=== PATIENT | male | born 1980 | race Caucasian/White ===

== ENCOUNTER 2022-05-20 21:53 | Inpatient (IN) | payer MEDICAID, SELFPAY ==
[2022-05-20 22:00] VITALS: BP 130/86; PULSE 101; RESP 20; O2SAT 96; BMI 21.9
[2022-05-20] MEDS: rocuronium 10 mg/mL INJ 5mL 50 MG (22:12)
[2022-05-20 22:13] VITALS: PULSE 80
[2022-05-20] MEDS: LORazepam 2 mg/mL INJ 1 mL (22:13)
[2022-05-20] MEDS: propofol 1,000 MG/100 ML INJ 5.72 MG IV (22:13)
--- NOTE | 2022-05-20 22:13 | CTR_ITS ---
PROCEDURE INFORMATION: Exam: CT Cervical Spine Without Contrast Exam date and time: 05/21/2022 12:08 AM Age: 42 years old Clinical indication: Other: Ams/seizures; Patient HX: Per EMS patient had multiple violent seizures on route to er. Patient intubated upon arrival. No further history. TECHNIQUE: Imaging protocol: Computed tomography of the cervical spine without contrast. Radiation optimization: All CT scans at this facility use at least one of these dose optimization techniques: automated exposure control; mA and/or kV adjustment per patient size (includes targeted exams where dose is matched to clinical indication); or iterative reconstruction. COMPARISON: CT Cervical Spine wo* [id number] 10/21/2017 2:21 AM RADIATION DOSE METRICS: Total DLP (mGy-cm): 213.07 FINDINGS: Tubes, catheters and devices: An endotracheal tube and orogastric tube are present. Bones/joints: No acute fracture. Normal alignment. Discs/Spinal canal/Neural foramina: A diffuse mild loss of disc height is seen within the cervical spine compatible with degenerative disc disease. Lungs: Subpleural emphysematous blebs are present in the lung apices. Soft tissues: Unremarkable. CT/CT cervical spin wo con* [id number] IMPRESSION: There are no acute osseous findings.
--- NOTE | 2022-05-20 22:13 | CTR_ITS ---
PROCEDURE INFORMATION: Exam: CT Head Without Contrast Exam date and time: 05/21/2022 12:05 AM Age: 42 years old Clinical indication: Condition or disease; Convulsions or seizures; Altered mental status/memory loss; Patient HX: Per EMS patient had multiple violent seizures on route to er. Patient intubated upon arrival. No further history. ; Additional info: AMS TECHNIQUE: Imaging protocol: Computed tomography of the head without contrast. Radiation optimization: All CT scans at this facility use at least one of these dose optimization techniques: automated exposure control; mA and/or kV adjustment per patient size (includes targeted exams where dose is matched to clinical indication); or iterative reconstruction. COMPARISON: CT head wo con* [id number] 10/21/2017 2:19 AM RADIATION DOSE METRICS: Total DLP (mGy-cm): 822.98 FINDINGS: Brain: Normal. No hemorrhage. Unremarkable white matter. No mass effect. Cerebral ventricles: No ventriculomegaly. Paranasal sinuses: Visualized sinuses are unremarkable. No fluid levels. Mastoid air cells: Visualized mastoid air cells are well aerated. Bones/joints: Unremarkable. No acute fracture. Soft tissues: A soft tissue calcification is seen within the left parietal scalp appearing stable compared with 10/21/2017. There is mild bruising seen in the left occipital scalp. Mild bruising is seen within the forehead on the right. CT/CT head wo con* [id number] IMPRESSION: There are no acute intracranial findings.
--- NOTE | 2022-05-20 22:13 | XRR_ITS ---
PROCEDURE INFORMATION: Exam: XR Chest Exam date and time: 05/20/2022 10:17 PM Age: 42 years old Clinical indication: Device placement; Ett placement (vent status); Patient HX: Per EMS patient had multiple violent seizures on route to er. Patient had to be intubated upon arrival. Check for et placement. ; Additional info: AMS TECHNIQUE: Imaging protocol: Radiologic exam of the chest. Views: 1 view. COMPARISON: CR Chest 1 [place] [id number] 10/21/2017 2:27 AM FINDINGS: Tubes, catheters and devices: An endotracheal tube ends at the mid clavicles. Lungs: The lungs are clear. Pleural spaces: Unremarkable. No pleural effusion. No pneumothorax. Heart/Mediastinum: Unremarkable. No cardiomegaly. Bones/joints: There are several chronic healed right inferolateral rib fractures. XR/XR chest 1V portable [id number] IMPRESSION: 1. Intubated. 2. Lungs clear.
--- NOTE | 2022-05-20 22:14 | ECG_ITS ---
[facility] Test Date: 2022-05-20 Pat Name: Tony Galo Department: Room: Gender: Male Long Term Care Pharmacist: : 1980 Requested By: Derek Martin Order Number: [id number] Carson MD: Salvatore Pepper M.D. Measurements Intervals [place] Rate: 139 P: 80 ID: [id number] QRS: 70 QRSD: 87 T: 75 QT: 274 QTc: 417 Interpretive Statements SINUS TACHYCARDIA Compared to ECG 10/21/2017 01:27:39 Sinus rhythm no longer present Electronically Signed On 05-21-2022 18:18:12 CDT by Salvatore Pepper M.D. [id number]
--- NOTE | 2022-05-20 22:15 | ED_ITS ---
Documented by User: Derek Martin MD 05/20/22 22:50 HPI - Altered Mental Status General: Chief Complaint: Seizure Stated Complaint: SEIZURE Time Seen by Provider: 05/20/22 22:04 History of Present Illness: 42-year-old with a history of seizures presents with altered mental status. Per EMS was picked up at the scene where he had seizures earlier and was retching and altered. He received ketamine and 2 mg of Ativan. Upon arrival he is retching in bed. History is very limited due to his altered mental status. Review of Systems Narrative: Unable to obtain due to altered mental status Physical Exam Narrative: - GENERAL: Writhing in the bed, uncooperative - EYES: Anicteric - HENT: Atraumatic, mucous membranes moist tongue biting present. - LUNGS: Clear to auscultation bilaterally. - CARDIOVASCULAR: Regular rate and rhythm. No murmur. No JVD. - ABDOMEN: Soft, nondistended - EXTREMITIES: No edema. - SKIN: No rashes or lesions. Warm. - NEUROLOGIC: Writhing in the bed and retching. Unresponsive to external stimuli. - PSYCHIATRIC: Unable to assess Procedures Intubation sedative: other (Propofol) Mg Given: 70 paralytic: Rocuronium Mg Given: 70 Laryngoscope: fiber optic video scope ET Tube Size: 7.5 ET Tube Uncuffed: No Tube Secured Depth (cm): 21 Tube Secured Location: teeth Tube Placement Confirmation: visualized tube passing through cords, equal breath sounds bilaterally, no breath sounds over epigastrium and confirmation by capnometry Patient Tolerated Procedure: well Course Vital Signs: Vital signs: Vital Signs Temperature 99.2 F 05/21/22 01:25 Pulse Rate 92 05/21/22 01:25 Respiratory Rate 20 H 05/21/22 01:25 Blood Pressure 110/84 05/21/22 01:25 Pulse Oximetry 98 05/21/22 01:25 MDM - Altered Mental Status Medical Decision Making Patient presents with altered mental status by EMS. He is initially resting in the stretcher and appears to be having an active seizure. Intubated using propofol and rocuronium. Following intubation oxygen saturation did drop to the 60s. Patient was aggressively suctioned with expression of a large amount of material from his trachea there is concern that he aspirated while he was having seizure. X-ray does not reveal pneumothorax or other acute abnormality. Tube placement was confirmed with laryngoscopy and breath sounds. Significantly improved saturation after suctioning. Remainder of imaging and lab work currently pending. Patient signed out to Dr. Frias. Lab Data : 05/20/22 22:20 05/20/22 23:44 Radiology Impressions Cervical Spine CT 05/20/22 22:13 IMPRESSION: There are no acute osseous findings. Chest X-Ray 05/20/22 22:13 IMPRESSION: 1. Intubated. 2. Lungs clear. Head CT 05/20/22 22:13 IMPRESSION: There are no acute intracranial findings. Laboratory Results WBC 22.5 10^3/uL (4.0-10.0) H 05/20/22 22:20 RBC 4.91 10^6/uL (4.1-5.3) 05/20/22 22:20 Hgb 16.1 g/dL (11.7-16.6) 05/20/22 22:20 Hct 45.6 % (42.0-52.0) 05/20/22 22:20 MCV 92.9 fl (80-94) 05/20/22 22:20 MCH 32.8 pg (28.0-34.0) 05/20/22 22:20 MCHC 35.3 g/dL (30.0-36.0) 05/20/22 22:20 RDW 13.0 % (12.1-15.1) 05/20/22 22:20 Plt Count 238 10^3/cmm (130-400) 05/20/22 22:20 MPV 9.5 fL (7.4-10.4) 05/20/22 22:20 Neut % (Auto) 65.5 % 05/20/22 22:20 Lymph % (Auto) 6.2 % 05/20/22 22:20 [place] % (Auto) 6.1 % 05/20/22 22:20 Eos % (Auto) 21.5 % 05/20/22 22:20 Baso % (Auto) 0.3 % 05/20/22 22:20 Neut # (Auto) 14.70 10^3/uL (1.8-7.7) H 05/20/22 22:20 Lymph # (Auto) 1.4 10^3/uL (0.8-4.8) 05/20/22 22:20 [place] # (Auto) 1.4 10^3/uL (0.2-0.9) H 05/20/22 22:20 Eos # (Auto) 4.8 10^3/uL (0.0-0.8) H 05/20/22 22:20 Baso # (Auto) 0.1 10^3/uL (0.0-0.1) 05/20/22 22:20 Nucleated RBC % (auto) 0 % 05/20/22 22:20 Nucleated RBCs # 0.0 /100WBC 05/20/22 22:20 Specimen Type Arterial 05/21/22 00:45 Sample Site Brachial, right 05/21/22 00:45 ABG pH 7.46 (7.35-7.45) H 05/21/22 00:45 ABG pCO2 33.1 mmHg (35-45) L 05/21/22 00:45 ABG pO2 396.0 mmHg (80.0-100.0) H 05/21/22 00:45 ABG HCO3 23.8 mmol/L (22-26) 05/21/22 00:45 ABG O2 Saturation > 100.0 05/21/22 00:45 ABG Base Excess 0.7 mmol/L (-2.0-2.0) 05/21/22 00:45 Hal Test N/a 05/21/22 00:45 A-a O2 Gradient 15.8 mmHg (5-10) H 05/21/22 00:45 Hematocrit 51.0 % (42-52) 05/21/22 00:45 Hgb O2 Saturation 99.2 % (95-100) 05/21/22 00:45 Carboxyhemoglobin 0.2 %THgb (0.4-20.1) L 05/21/22 00:45 Methemoglobin 1.0 % (0.4-1.5) 05/21/22 00:45 Total Hemoglobin 16.6 g/dL (14-18) 05/21/22 00:45 Sodium 130.0 mmol/L (131-143) L 05/21/22 00:45 Potassium 4.1 mmol/L (3.5-5.0) 05/21/22 00:45 Glucose 106.0 mg/dL (70-115) 05/21/22 00:45 Ionized Calcium 1.2 mmol/L (1.1-1.4) 05/21/22 00:45 O2 Delivery Device Vent 05/21/22 00:45 FiO2 80.0 % 05/21/22 00:45 PEEP 10.0 cmH20 05/21/22 00:45 Early Years Teacher ID Ryder 05/21/22 00:45 Sodium 126 mmol/L (136-145) L 05/20/22 23:44 Potassium 4.5 mmol/L (3.5-5.1) 05/20/22 23:44 Chloride 88 mmol/L (98-107) L 05/20/22 23:44 Carbon Dioxide 16 mmol/L (22-29) L 05/20/22 23:44 Anion Gap 26.5 (5-19) H 05/20/22 23:44 BUN 14 mg/dL (6-20) 05/20/22 23:44 Creatinine 1.1 mg/dL (0.7-1.2) 05/20/22 23:44 GFR Calculation 73.1 mL/min (90-130) L 05/20/22 23:44 Glucose 119 mg/dL (65-115) H 05/20/22 23:44 Calculated Osmolality 264 mOsm/kg (285-295) L 05/20/22 23:44 Calcium 9.2 mg/dL (8.5-10.5) 05/20/22 23:44 Total Bilirubin 0.8 mg/dL (0.15-1.2) 05/20/22 23:44 AST 78 U/L (0-40) H 05/20/22 23:44 ALT 38 U/L (0-41) 05/20/22 23:44 Alkaline Phosphatase 156 IU/L (40-130) H 05/20/22 23:44 Troponin T Baseline 143 ng/L (0-15) H* 05/20/22 23:44 Total Protein 7.9 g/dL (6.6-8.7) 05/20/22 23:44 Albumin 4.7 g/dL (3.5-5.2) 05/20/22 23:44 Globulin 3.2 g/dL (1.3-4.6) 05/20/22 23:44 Urine Color Yellow (Yellow) 05/21/22 00:37 Urine Appearance Clear (CLEAR) 05/21/22 00:37 Urine pH 5 (5-7) 05/21/22 00:37 Ur Specific [place] 1.020 (1.005-1.030) 05/21/22 00:37 Urine Protein 1+ (Negative) H 05/21/22 00:37 Urine Glucose (UA) 4+ (Normal) H 05/21/22 00:37 Urine Ketones Negative (Negative) 05/21/22 00:37 Urine Blood 3+ (Negative) H 05/21/22 00:37 Urine Nitrate Negative (Negative) 05/21/22 00:37 Urine Bilirubin Neg (Negative) 05/21/22 00:37 Urine Urobilinogen Norm mg/dL (Negative) 05/21/22 00:37 Ur Leukocyte Esterase Negative (Negative) 05/21/22 00:37 Urine RBC 25-40 /hpf (0-2) H 05/21/22 00:37 Urine WBC 15-25 /hpf (0-5) H 05/21/22 00:37 Ur Squamous Epith Cells 0-4 /hpf (0-5) H 05/21/22 00:37 Amorphous Sediment Not Reportable 05/21/22 00:37 Urine Bacteria Trace /hpf (NONE) 05/21/22 00:37 Hyaline Casts 0-4 /lpf H 05/21/22 00:37 Urine Mucus Trace /hpf 05/21/22 00:37 Urine Yeast 1+ /hpf H 05/21/22 00:37 Salicylates < 0.3 mg/dL (3-10) L 05/20/22 23:44 Urine Opiates Screen Negative ng/mL (Negative) 05/21/22 00:37 Acetaminophen < 5.0 ug/mL (10-30) L 05/20/22 23:44 Ur Barbiturates Screen Negative ng/mL (Negative) 05/21/22 00:37 Ur Phencyclidine Scrn Negative ng/mL (Negative) 05/21/22 00:37 Ur Amphetamines Screen Negative ng/mL (Negative) 05/21/22 00:37 U Benzodiazepines Scrn Positive ng/mL (Negative) H 05/21/22 00:37 Urine Cocaine Screen Negative ng/mL (Negative) 05/21/22 00:37 U Marijuana (THC) Screen Positive ng/mL (Negative) H 05/21/22 00:37 Ethyl Alcohol < 10 mg/dL (0-10) 05/20/22 23:44 EKG Data EKG 1: Other EKG comments: Sinus tachycardia, rate of 139, no sign of acute ischemia or acute abnormality. Discharge Plan Discharge Patient Disposition: Admitted As Inpatient Clinical Impression: Status epilepticus Condition: Stable Referrals: Stefan Enciso MD [Primary Care Provider] - Coding Level of Care Code ED Branch Billing Payroll Clerk for Chg Fwd Documented by User: Laisha Frias MD 05/21/22 01:28 HPI - Altered Mental Status General: Chief Complaint: Seizure Stated Complaint: SEIZURE Time Seen by Provider: 05/20/22 22:04 Course Vital Signs: Vital signs: Vital Signs Temperature 99.2 F 05/21/22 01:25 Pulse Rate 92 05/21/22 01:25 Respiratory Rate 20 H 05/21/22 01:25 Blood Pressure 110/84 05/21/22 01:25 Pulse Oximetry 98 05/21/22 01:25 MDM - Altered Mental Status Medical Decision Making Patient presents with altered mental status by EMS. He is initially resting in the stretcher and appears to be having an active seizure. Intubated using propofol and rocuronium. Following intubation oxygen saturation did drop to the 60s. Patient was aggressively suctioned with expression of a large amount of material from his trachea there is concern that he aspirated while he was having seizure. X-ray does not reveal pneumothorax or other acute abnormality. Tube placement was confirmed with laryngoscopy and breath sounds. Significantly improved saturation after suctioning. Remainder of imaging and lab work currently pending. Patient signed out to Dr. Frias. Patient presents here with status epilepticus he was intubated for this patient's head CT here is normal I spoke to hospitalist here and will admit to the ICU. Lab Data : 05/20/22 22:20 05/20/22 23:44 Radiology Impressions Cervical Spine CT 05/20/22 22:13 IMPRESSION: There are no acute osseous findings. Chest X-Ray 05/20/22 22:13 IMPRESSION: 1. Intubated. 2. Lungs clear. Head CT 05/20/22 22:13 IMPRESSION: There are no acute intracranial findings. Laboratory Results WBC 22.5 10^3/uL (4.0-10.0) H 05/20/22 22:20 RBC 4.91 10^6/uL (4.1-5.3) 05/20/22 22:20 Hgb 16.1 g/dL (11.7-16.6) 05/20/22 22:20 Hct 45.6 % (42.0-52.0) 05/20/22 22:20 MCV 92.9 fl (80-94) 05/20/22 22:20 MCH 32.8 pg (28.0-34.0) 05/20/22 22:20 MCHC 35.3 g/dL (30.0-36.0) 05/20/22 22:20 RDW 13.0 % (12.1-15.1) 05/20/22 22:20 Plt Count 238 10^3/cmm (130-400) 05/20/22 22:20 MPV 9.5 fL (7.4-10.4) 05/20/22 22:20 Neut % (Auto) 65.5 % 05/20/22 22:20 Lymph % (Auto) 6.2 % 05/20/22 22:20 [place] % (Auto) 6.1 % 05/20/22 22:20 Eos % (Auto) 21.5 % 05/20/22 22:20 Baso % (Auto) 0.3 % 05/20/22 22:20 Neut # (Auto) 14.70 10^3/uL (1.8-7.7) H 05/20/22 22:20 Lymph # (Auto) 1.4 10^3/uL (0.8-4.8) 05/20/22 22:20 [place] # (Auto) 1.4 10^3/uL (0.2-0.9) H 05/20/22 22:20 Eos # (Auto) 4.8 10^3/uL (0.0-0.8) H 05/20/22 22:20 Baso # (Auto) 0.1 10^3/uL (0.0-0.1) 05/20/22 22:20 Nucleated RBC % (auto) 0 % 05/20/22 22:20 Nucleated RBCs # 0.0 /100WBC 05/20/22 22:20 Specimen Type Arterial 05/21/22 00:45 Sample Site Brachial, right 05/21/22 00:45 ABG pH 7.46 (7.35-7.45) H 05/21/22 00:45 ABG pCO2 33.1 mmHg (35-45) L 05/21/22 00:45 ABG pO2 396.0 mmHg (80.0-100.0) H 05/21/22 00:45 ABG HCO3 23.8 mmol/L (22-26) 05/21/22 00:45 ABG O2 Saturation > 100.0 05/21/22 00:45 ABG Base Excess 0.7 mmol/L (-2.0-2.0) 05/21/22 00:45 Hal Test N/a 05/21/22 00:45 A-a O2 Gradient 15.8 mmHg (5-10) H 05/21/22 00:45 Hematocrit 51.0 % (42-52) 05/21/22 00:45 Hgb O2 Saturation 99.2 % (95-100) 05/21/22 00:45 Carboxyhemoglobin 0.2 %THgb (0.4-20.1) L 05/21/22 00:45 Methemoglobin 1.0 % (0.4-1.5) 05/21/22 00:45 Total Hemoglobin 16.6 g/dL (14-18) 05/21/22 00:45 Sodium 130.0 mmol/L (131-143) L 05/21/22 00:45 Potassium 4.1 mmol/L (3.5-5.0) 05/21/22 00:45 Glucose 106.0 mg/dL (70-115) 05/21/22 00:45 Ionized Calcium 1.2 mmol/L (1.1-1.4) 05/21/22 00:45 O2 Delivery Device Vent 05/21/22 00:45 FiO2 80.0 % 05/21/22 00:45 PEEP 10.0 cmH20 05/21/22 00:45 Early Years Teacher ID Ryder 05/21/22 00:45 Sodium 126 mmol/L (136-145) L 05/20/22 23:44 Potassium 4.5 mmol/L (3.5-5.1) 05/20/22 23:44 Chloride 88 mmol/L (98-107) L 05/20/22 23:44 Carbon Dioxide 16 mmol/L (22-29) L 05/20/22 23:44 Anion Gap 26.5 (5-19) H 05/20/22 23:44 BUN 14 mg/dL (6-20) 05/20/22 23:44 Creatinine 1.1 mg/dL (0.7-1.2) 05/20/22 23:44 GFR Calculation 73.1 mL/min (90-130) L 05/20/22 23:44 Glucose 119 mg/dL (65-115) H 05/20/22 23:44 Calculated Osmolality 264 mOsm/kg (285-295) L 05/20/22 23:44 Calcium 9.2 mg/dL (8.5-10.5) 05/20/22 23:44 Total Bilirubin 0.8 mg/dL (0.15-1.2) 05/20/22 23:44 AST 78 U/L (0-40) H 05/20/22 23:44 ALT 38 U/L (0-41) 05/20/22 23:44 Alkaline Phosphatase 156 IU/L (40-130) H 05/20/22 23:44 Troponin T Baseline 143 ng/L (0-15) H* 05/20/22 23:44 Total Protein 7.9 g/dL (6.6-8.7) 05/20/22 23:44 Albumin 4.7 g/dL (3.5-5.2) 05/20/22 23:44 Globulin 3.2 g/dL (1.3-4.6) 05/20/22 23:44 Urine Color Yellow (Yellow) 05/21/22 00:37 Urine Appearance Clear (CLEAR) 05/21/22 00:37 Urine pH 5 (5-7) 05/21/22 00:37 Ur Specific [place] 1.020 (1.005-1.030) 05/21/22 00:37 Urine Protein 1+ (Negative) H 05/21/22 00:37 Urine Glucose (UA) 4+ (Normal) H 05/21/22 00:37 Urine Ketones Negative (Negative) 05/21/22 00:37 Urine Blood 3+ (Negative) H 05/21/22 00:37 Urine Nitrate Negative (Negative) 05/21/22 00:37 Urine Bilirubin Neg (Negative) 05/21/22 00:37 Urine Urobilinogen Norm mg/dL (Negative) 05/21/22 00:37 Ur Leukocyte Esterase Negative (Negative) 05/21/22 00:37 Urine RBC 25-40 /hpf (0-2) H 05/21/22 00:37 Urine WBC 15-25 /hpf (0-5) H 05/21/22 00:37 Ur Squamous Epith Cells 0-4 /hpf (0-5) H 05/21/22 00:37 Amorphous Sediment Not Reportable 05/21/22 00:37 Urine Bacteria Trace /hpf (NONE) 05/21/22 00:37 Hyaline Casts 0-4 /lpf H 05/21/22 00:37 Urine Mucus Trace /hpf 05/21/22 00:37 Urine Yeast 1+ /hpf H 05/21/22 00:37 Salicylates < 0.3 mg/dL (3-10) L 05/20/22 23:44 Urine Opiates Screen Negative ng/mL (Negative) 05/21/22 00:37 Acetaminophen < 5.0 ug/mL (10-30) L 05/20/22 23:44 Ur Barbiturates Screen Negative ng/mL (Negative) 05/21/22 00:37 Ur Phencyclidine Scrn Negative ng/mL (Negative) 05/21/22 00:37 Ur Amphetamines Screen Negative ng/mL (Negative) 05/21/22 00:37 U Benzodiazepines Scrn Positive ng/mL (Negative) H 05/21/22 00:37 Urine Cocaine Screen Negative ng/mL (Negative) 05/21/22 00:37 U Marijuana (THC) Screen Positive ng/mL (Negative) H 05/21/22 00:37 Ethyl Alcohol < 10 mg/dL (0-10) 05/20/22 23:44 Critical Care Time Critical Care Time: Critical Care Time: Yes Total Critical Care Time: 40 Attestation: The high probability of a clinically significant, sudden or life threatening deterioration of the patient's neuro system(s) required my full and direct attention, intervention and personal management. The critical care time is as shown. This time is in addition to time spent performing any reported procedures but includes the following: [x] Data and vital sign review and interpretation [x] Patient assessment, examination and intervention [x] Documentation [x] Medication orders and management Discharge Plan Discharge Patient Disposition: Admitted As Inpatient Clinical Impression: Status epilepticus Condition: Stable Referrals: Stefan Enciso MD [Primary Care Provider] - Coding Level of Care Code ED Branch Billing Payroll Clerk for Micheal Sprague
[2022-05-20 22:31] LABS: Basophils # 0.1 10^3/uL (0.0-0.1); Basophils % 0.3 %; Eosinophils # 4.8 10^3/uL (0.0-0.8); Eosinophils % 21.5 %; Hematocrit 45.6 % (42.0-52.0); Hemoglobin 16.1 g/dL (11.7-16.6); Lymphocytes # 1.4 10^3/uL (0.8-4.8); Lymphocytes % 6.2 %; Mean Corpuscular HGB Conc 35.3 g/dL (30.0-36.0); Mean Corpuscular Hemoglobin 32.8 pg (28.0-34.0); Mean Corpuscular Volume 92.9 fl (80-94); Mean Platelet Volume 9.5 fL (7.4-10.4); Monocytes # 1.4 10^3/uL (0.2-0.9); Monocytes % 6.1 %; Neutrophils % 65.5 %; Nucleated Red Blood Cells % 0 %; Platelet Count 238 10^3/cmm (130-400); Red Blood Count 4.91 10^6/uL (4.1-5.3); White Blood Count 22.5 10^3/uL (4.0-10.0)
[2022-05-20] MEDS: sodium chloride 0.9% 1,000 ML 999 ML IV (22:35)
[2022-05-20 22:40] VITALS: RESP 18
[2022-05-20 22:57] LABS: Slide Review Slide Review Perform
[2022-05-21] VITALS (95 sets, daily range): BP systolic 92–125; BP diastolic 51–84; PULSE 72–98; RESP 16–26; TEMP 36.3–37.7; O2SAT 92–100
[2022-05-21 00:12] LABS: Albumin Level 4.7 g/dL (3.5-5.2); Alkaline Phosphatase 156 IU/L (40-130); Blood Urea Nitrogen 14 mg/dL (6-20); Calcium 9.2 mg/dL (8.5-10.5); Carbon Dioxide 16 mmol/L (22-29); Chloride 88 mmol/L (98-107); Globulin 3.2 g/dL (1.3-4.6); Glomerular Filtration Rate 73.1 mL/min (90-130); Glucose 119 mg/dL (65-115); Osmolality Calculated 264 mOsm/kg (285-295); Sodium 126 mmol/L (136-145); Total Bilirubin 0.8 mg/dL (0.15-1.2); Total Protein 7.9 g/dL (6.6-8.7)
[2022-05-21 00:19] LABS: Acetaminophen < 5.0 ug/mL (10-30); Alanine Aminotransferase 38 U/L (0-41); Alcohol Level < 10 mg/dL (0-10); Anion Gap 26.5 (5-19); Potassium 4.5 mmol/L (3.5-5.1); Salicylate < 0.3 mg/dL (3-10)
[2022-05-21 00:20] LABS: Aspartate Amino Transferase 78 U/L (0-40)
[2022-05-21 00:21] LABS: Troponin(5th) Baseline 143 ng/L (0-15)
[2022-05-21 00:57] LABS: Amphetamines Screen Urine Negative (Negative); Barbiturates Screen Urine Negative (Negative); Benzodiazepines Screen Urine Positive (Negative); Cocaine Screen Urine Negative (Negative); Opiate Screen Urine Negative (Negative); PCP Screen Urine Negative (Negative); THC Screen Urine Positive (Negative)
[2022-05-21 00:59] LABS: ABG PCO2 33.1 mmHg (35-45); ABG PH Result 7.46 (7.35-7.45); Alveolar-Arterial Oxygen Gradi 15.8 mmHg (5-10); Base Excess ABG 0.7 mmol/L (-2.0-2.0); Blood Gas Operator Identificat JB; Blood Gas Sample Site Brachial, right; Blood Gas Sample Type Arterial; Carboxyhemoglobin 0.2 %THgb (0.4-20.1); HCO3 ABG 23.8 mmol/L (22-26); HGB O2 Sat 99.2 % (95-100); Ionized Calcium Level - ABG 1.2 mmol/L (1.1-1.4); Oxygen Device VENT; Oxygen Saturation ABG > 100.0; Potassium Level - ABG 4.1 mmol/L (3.5-5.0); Total Hemoglobin 16.6 g/dL (14-18)
[2022-05-21 01:01] LABS: Add Urine Culture? Yes; Bacteria Urine TRACE /hpf; Bilirubin Urine Neg (Negative); Blood Urine 3+ (Negative); Glucose Urine UA 4+ (Normal); Hyaline Casts Urine 0-4 /lpf; Ketones Urine Negative (Negative); Leukocyte Esterase Urine Negative (Negative); Mucus Urine TRACE /hpf; Nitrate Urine Negative (Negative); Protein Urine 1+ (Negative); RBC Urine 25-40 /hpf (0-2); Squamous Epithelial Cell Urine 0-4 /hpf (0-5); Urine Appearance Clear (CLEAR); Urine Color Yellow (Yellow); Urobilinogen Urine Norm (Negative); WBC Urine 15-25 /hpf (0-5); pH Urine 5 (5-7)
--- NOTE | 2022-05-21 01:40 | P.HP_ITS ---
Providers/Chief Complaint Primary Care Provider: Stefan Enciso MD Chief Complaint: SEIZURE History of Present Illness 42-year-old gentleman was brought in by EMS which was called in today by his brother with whom he resides due to multiple seizures today, including one very long one due to which family became concerned about him being able to maintain his airway, and called 911. He was reportedly found by EMS with altered mental status, retching, received ketamine, Ativan, in ER noted to be retching again, with limited history due to altered mental status. Becoming restless, agitated, as well as with copious secretions, concern for respiratory compromise, was intubated in ER. His brother had called back providing the history above, although I was not able to reach him and tried calling back again to confirm additional details. Reportedly brother could relate to nursing staff that patient has been partial taking his medications, although family could not relay what they were. Do not see any medications listed on external medication history. He was previously on Keppra and Lamictal due to history of seizures, with multiple admissions over 2014- period, with nonadherence with taking his medications, with multiple seizures, intubations. With concerns related to him a number of times regarding risking him of sudden in epilepsy. At this time we also unable to confirm his recent alcohol intake habits, although he does have history of alcohol use disorder in the past. Review of systems at this time is not obtainable. He is noted to have leukocytosis 20.5. Afebrile at 99.2. With hyponatremia sodium 126, chloride 88, bicarb 16, anion gap 26.5. AST 78. Alk phos 156. Troponin baseline 143. UA with 3+ blood, 25-40 RBC, 15-25 WBC, 0-4 squamous Pelo cells. 0-4 hyaline casts. 1+ yeast. Trace mucus. Urine drug screen positive for marijuana, benzodiazepine. CT of the head without acute intracranial findings. CT C-spine similarly. Chest x-ray with clear lungs. Review of Systems General: Reports: ROS unobtainable due to medical condition and ROS unobtainable due to mental status Medications/Allergies Allergies Allergy/AdvReac Type Severity Reaction Status Date / Time No Known Allergies Allergy Verified 05/20/22 22:22 PFSH Acute PFSH: Medical History Alcohol use disorder Chronic kidney disease Medical non-compliance Seizure disorder Smoking addiction Traumatic brain injury Surgical History No significant past surgical history Family History Other Unknown family medical history Social History Alcohol intake: unknown Substance/Drug Use: unknown Lives independently: Yes Household members: other Details: Brother Marital status: Unknown Vitals/I&O/Wt Last Vital Signs Temp 99.2 F 05/21/22 01:25 Pulse 92 05/21/22 01:25 Resp 20 H 05/21/22 01:25 BP 110/84 05/21/22 01:25 Pulse Ox 98 05/21/22 01:25 05/20/22 05/20/22 05/21/22 14:59 22:59 06:59 Intake Total 5.971 / 5.971 1026.233 / 1032.204 Balance 5.971 / 5.971 1026.233 / 1032.204 Weight last 48 hrs Weight 63.503 kg Physical Exam Const: GENERAL APPEARANCE: patient mechanically ventilated; not cooperative OTHER: Intubated, sedated, not following directions but moving around to try to resist with attempted blood draw. HENMT: COMMON NORMALS: normocephalic, EAC's normal, Normal external nose present and moist oral mucous membranes HEAD & SCALP: normocephalic NOSE: Normal external nose present EXTERNAL AUDITORY CANAL: EAC's normal OTHER: NGT in place draining red/brownish fluid. Eye: OTHER: Pupils symmetrical. Chest: CHEST: Yes Symmetrical chest wall rise Resp: COMMON NORMALS: clear to auscultation bilaterally AUSCULTATION: rhonchi Cardio: COMMON NORMALS: regular rate, regular rhythm and No murmurs present (Cardio) RATE: regular rate and tachycardic RHYTHM: regular rhythm GI: COMMON NORMALS: Normal to inspection, nondistended, normoactive bowel sounds present and Soft to palpation PALPATION: Yes Soft to palpation Extremity: COMMON NORMALS: no pedal edema Neuro: COMMON NORMALS: moves all extremities Psych: COMMON NORMALS: mental status grossly normal Skin: RASHES: no rashes OTHER: Multiple abrasions and bruises on BL upper and lower extremities Urinary Catheter Management: Michael: Cath Placed During This Visit: no Data : 05/20/22 22:20 05/20/22 23:44 A&P Assessment and plan (1) Status epilepticus: Multiple seizures today, including reported long seizure by his brother which m abelardo family concerned about him maintaining his airway. Received benzodiazepines by EMS, here reporting no further seizure prescription with nursing staff, ER physician documentation shows possible seizure here in the hospital. With AMS, agitation, also copious secretions, with concern for airway compromise was intubated. Currently moving all extremities, not following commands, without obvious seizure-like activity. When his brother called and she reported that patient apparently has been taking all his medications, but could not name what they are. Advised the medications listed on external medication history. He does have history of repeated noncompliance with his medications with multiple hospitalizations and intubations back in 2015-. Medications once reconciled. He previously used to be on Keppra and Lamictal. We will check levels. Additionally start Keppra 500 mg every 12 for now IV. Would wean off sedation in the morning to reassess mental status. As he is likely postictal currently, but if still without improvement in mental status would obtain EEG. Consideration of neurology consultation. With history of alcohol dependence and heavy drinking, binge drinking, EtOH level is low, but his recent alcohol intake habits are unknown. Possibility also of alcohol withdrawal seizure. Would confirm his habits with his family when they can be reached tomorrow. Evaluation of AST, 78. Check CK. Follow-up chest x-ray. Status: Acute (2) Hyponatremia: Unknown duration. Previously at times mild hyponatremia, currently worsening prior, 126. No obvious pedal edema on CT. Possibly secondary to multiple recent seizures. Does appear dehydrated as well appears to have also hypovolemic hyponatremia component. Received 1L NS. Recheck sodium. Slow NS infusion 30 mill per hour. Monitor sodium at intervals. Urine studies. TSH Status: Acute (3) Troponin level elevated: Troponin abnormality, no known prior coronary disease. History of smoking. Follow-up troponin EKG series. Assess TTE. Suspect likely demand ischemia with acute condition, but consider further assessment depending on results. If no evidence of acute NC consider referral for further risk stratification with stress testing on resolution of acute condition. Status: Acute (4) Hyperglycemia: Hyperglycemia 119 without known history of diabetes. Possibly related to stress with acute condition. Check A1c. Status: Acute (5) Chronic kidney disease: Status: Acute (6) UTI (urinary tract infection): Possible UTI. Urine culture pending. For now empirically ceftriaxone Status: Acute (7) Gastritis: Red/brown fluid draining from NGT, prior to that with retching. Possible gastritis, possible PUD, Saranya-Mckoy tear. No history of liver cirrhosis, gastric varices. Unknown EtOH, history of heavy intake. Unknown NSAID use. PPI twice daily. Follow-up CBC. No widening of mediastinum on x-ray. Monitor NG output. Consideration of inpatient versus outpatient endoscopic evaluation. Status: Acute Plan History of traumatic brain injury and resultant epilepsy. At risk of sudden in epilepsy. Encourage follow-up with neurology. Attestations Medical Necessity Statement*: Admission of over 2 midnights is anticipated for assessment of management of recurrent seizures, status epilepticus, additional problems as above. Critical Care Time: The high probability of a clinically significant, sudden or life threatening deterioration of the patient's neurologic, respiratory, system(s) required my full and direct attention, intervention and personal management. The critical care time is as shown. This time is in addition to time spent performing any reported procedures but includes the following: x Data and vital sign review and interpretation x Patient assessment, examination and intervention x Documentation x Medication orders and management Critical Care Time (min): 60 Coding Level of Care Code Acute Call Specialist for [facility] Fwd Exam Comprehensive Diagnoses Status epilepticus G40.901 Hyponatremia E87.1 Troponin level elevated R77.8 Hyperglycemia R73.9 Chronic kidney disease N18.9 UTI (urinary tract infection) N39.0 Gastritis K29.70
[2022-05-21 02:31] LABS: Blood Urea Nitrogen 15 mg/dL (6-20); Calcium 9.6 mg/dL (8.5-10.5); Carbon Dioxide 22 mmol/L (22-29); Chloride 86 mmol/L (98-107); Glomerular Filtration Rate 66.1 mL/min (90-130); Glucose 95 mg/dL (65-115); Osmolality Calculated 269 mOsm/kg (285-295); Sodium 129 mmol/L (136-145)
[2022-05-21 02:32] LABS: Magnesium 2.4 mg/dL (1.7-2.3)
--- NOTE | 2022-05-21 02:37 | USCV_ITS ---
Tony Galo Age: 42 Gender: M : 1980 Exam Date: 05/21/2022 02:57 Ordering Phys: Juan Chow MD Technologist: GEOVANNA Exam Location: [facility] [place] Indication: elevated troponin. Patient is on ventilator in ICU-8 BP: 110 / 84 HR: 92 Rhythm: Sinus Technical Quality: Adequate MEASUREMENTS (Male / Female) Normal Values 2D ECHO LV Diastolic Diameter PLAX 3.5 cm 4.2 - 5.9 / 3.9 - 5.3 cm LV Systolic Diameter PLAX 2.6 cm IVS Diastolic Thickness 0.9 cm 0.6 - 1.0 / 0.6 - 0.9 cm IVS Systolic Thickness 1.1 cm LVPW Diastolic Thickness 1.1 cm 0.6 - 1.0 / 0.6 - 0.9 cm LVPW Systolic Thickness 1.4 cm LVOT Diameter 1.9 cm LV Ejection Fraction 2D Teich 54.9 % LV Ejection Fraction MOD 2C 49.3 % LV Ejection Fraction 2C AL 53.1 % LA Diameter 2.3 cm LA Width 3.0 cm LA Height 3.9 cm RA Width 2.4 cm RA Height 3.9 cm Aorta at Sinotubular Diameter 2.8 cm IVC Diameter 1.8 cm M-MODE Aortic Annulus Diameter 3.0 cm LA Ao Ratio MM 0.6 MV E Point Septal Separation 0.7 cm DOPPLER AV Peak Velocity 80.0 cm/s LVOT Peak Velocity 76.0 cm/s AV Area Cont Eq vti 1.9 cm squared AV Area Cont Eq pk 2.7 cm squared MV Peak Velocity 45.0 cm/s MV Area PHT 2.7 cm squared Mitral E to A Ratio 0.8 MV E' Velocity 18.5 cm/s Mitral E to MV E' Ratio 6.8 Mitral E to LV E' Lateral Ratio 8.1 Mitral E to LV E' Septal Ratio 5.9 TR Peak Velocity 188.0 cm/s TR Peak Gradient 14.1 mmHg TV Peak E Velocity 25.0 cm/s Right Atrial Pressure 5.0 mmHg Pulmonary Artery Systolic Pressu 19.1 mmHg PV Peak Velocity 80.0 cm/s RV Acceleration Time 0.1 s RV Ejection Time 0.3 s RV AcT/ET 0.3 FINDINGS Left Ventricle Normal left ventricular size. LV systolic function is normal with EF of 55-60%. No regional wall motion abnormalities. Grade 1 diastolic dysfunction Right Ventricle The right ventricle is normal in size and function. Right Atrium The right atrium is normal in size. Left Atrium The left atrium is normal in size. Mitral Valve Structurally normal mitral valve without significant stenosis or prolapse. There is no mitral regurgitation. Aortic Valve Grossly normal without significant stenosis. There is no aortic regurgitation. Tricuspid Valve Structurally normal tricuspid valve without significant stenosis. Trace tricuspid regurgitation. Insufficient TR jet to calculate RVSP Pulmonic Valve Structurally normal pulmonic valve without significant stenosis. There is no pulmonic regurgitation. Pericardium Pleural effusion is seen. No significant pericardial effusion Aorta Normal ascending aorta dimension. IVC CONCLUSIONS LV systolic function is normal with EF 55 to 60%. Grade 1 diastolic dysfunction is seen. Trace tricuspid regurgitation. Pleural effusion noted. No comparison studies are available. Salvatore Pepper MD (Electronically Signed) Final Date: 21 May 2022 17:31 S
[2022-05-21] MEDS: LORazepam 2 mg/mL INJ 1 mL IVP (02:46)
[2022-05-21] MEDS: pantoprazole 40 mg SDV IVP ×2 (03:06→14:27)
[2022-05-21 03:15] LABS: Creatine Phosphokinase 3786 U/L (39-308)
[2022-05-21] MEDS: cefTRIAXone 2,000 MG in sodium chloride 0.9% (plus) 50 ML 100 MG IV ×2 (03:25→14:27)
--- NOTE | 2022-05-21 03:25 | ECG_ITS ---
[facility] Test Date: 2022-05-21 Pat Name: Tony Galo Department: Room: ICU08 Gender: Male Executive Meeting Manager: : 1980 Requested By: Juan Chow Order Number: [id number] Yamileth MD: Salvatore Pepper M.D. Measurements Intervals [place] Rate: 83 P: 78 MA: 137 QRS: 83 QRSD: 86 T: 81 QT: 368 QTc: 434 Interpretive Statements SINUS RHYTHM POSSIBLE RIGHT ATRIAL ENLARGEMENT [0.25mV P-WAVE] POSSIBLE LEFT ATRIAL ENLARGEMENT [-0.1mV P-WAVE IN V1/V2] MODERATE ST DEPRESSION [0.05+ mV ST DEPRESSION] Compared to ECG 05/20/2022 22:25:46 ST (T wave) deviation now present Sinus tachycardia no longer present Electronically Signed On 05-21-2022 18:23:11 CDT by Salvatore Pepper M.D. [id number]
[2022-05-21 03:27] LABS: Estmated Average Glucose 103; Hemoglobin A1C 5.2 % (4.0-6.0)
[2022-05-21] MEDS: sodium chloride 0.9% 1,000 ML 30 ML IV (03:27)
[2022-05-21 04:37] LABS: Urine Random Sodium 82 mmol/L
--- NOTE | 2022-05-21 04:38 | XRR_ITS ---
PROCEDURE INFORMATION: Exam: XR Abdomen Exam date and time: 05/21/2022 4:50 AM Age: 42 years old Clinical indication: Patient HX: Coffee ground contents in suction canister. Patient intubated upon er arrival. No further history. ; Additional info: Upper gib TECHNIQUE: Imaging protocol: Radiologic exam of the abdomen. Views: 3 or more views. COMPARISON: CT Chest/Abdomen/Pelvis w IV* 10/21/2017 2:25 AM FINDINGS: Tubes, catheters and devices: Nasogastric tube is placed with its tip at least in the proximal stomach. An endotracheal tube is placed with its tip approximately 6.4 cm from the shey. Gastrointestinal tract: Normal. No bowel dilation. Intraperitoneal space: Normal. No free air. Bones/joints: There is evidence of rib fractures on the right posteriorly. XR/XR acute abdomen series [id number] IMPRESSION: There are no acute abdominal findings.
--- NOTE | 2022-05-21 05:07 | PC.PHAR ---
Vancomycin is dosed at 1500mg IVPB every 18 hours to produce a predicted trough level of 15.97 (population based pharmacokinetic analysis). A trough level has been ordered from the lab to be obtained before the fourth dose to confirm and adjust if needed.
[2022-05-21 05:52] LABS: Basophils % 0.1 %; Hematocrit 42.7 % (42.0-52.0); Hemoglobin 15.7 g/dL (11.7-16.6); Lymphocytes # 1.4 10^3/uL (0.8-4.8); Lymphocytes % 9.7 %; Mean Corpuscular HGB Conc 36.8 g/dL (30.0-36.0); Mean Corpuscular Hemoglobin 33.3 pg (28.0-34.0); Mean Corpuscular Volume 90.5 fl (80-94); Mean Platelet Volume 9.8 fL (7.4-10.4); Monocytes # 0.9 10^3/uL (0.2-0.9); Monocytes % 6.4 %; Neutrophils # 11.65 10^3/uL (1.8-7.7); Neutrophils % 83.4 %; Nucleated Red Blood Cells % 0 %; Platelet Count 219 10^3/cmm (130-400); Red Blood Count 4.72 10^6/uL (4.1-5.3); Red Cell Distribution Width 12.9 % (12.1-15.1)
[2022-05-21 06:03] LABS: ABG PCO2 35.2 mmHg (35-45); ABG PH Result 7.46 (7.35-7.45); Arterial Blood Gas Hematocrit 45.8 % (42-52); Base Excess ABG 1.3 mmol/L (-2.0-2.0); Blood Gas Operator Identificat JB; Blood Gas Sample Site Brachial, right; Blood Gas Sample Type Arterial; Carboxyhemoglobin 0.5 %THgb (0.4-20.1); HCO3 ABG 24.8 mmol/L (22-26); HGB O2 Sat 98.3 % (95-100); Ionized Calcium Level - ABG 1.1 mmol/L (1.1-1.4); Methemoglobin 0.9 % (0.4-1.5); Oxygen Saturation ABG 99.7; Potassium Level - ABG 3.9 mmol/L (3.5-5.0); Total Hemoglobin 14.9 g/dL (14-18)
[2022-05-21 06:04] LABS: Alveolar-Arterial Oxygen Gradi 10.4 mmHg (5-10); Oxygen Device VENT
[2022-05-21 06:25] LABS: Troponin(5th) Baseline 259 ng/L (0-15)
[2022-05-21 06:47] LABS: Alanine Aminotransferase 46 U/L (0-41); Albumin Level 4.6 g/dL (3.5-5.2); Alkaline Phosphatase 141 IU/L (40-130); Anion Gap 23.7 (5-19); Aspartate Amino Transferase 148 U/L (0-40); Blood Urea Nitrogen 18 mg/dL (6-20); Calcium 9.3 mg/dL (8.5-10.5); Carbon Dioxide 21 mmol/L (22-29); Chloride 87 mmol/L (98-107); Glomerular Filtration Rate 60.2 mL/min (90-130); Glucose 108 mg/dL (65-115); Osmolality Calculated 268 mOsm/kg (285-295); Potassium 3.7 mmol/L (3.5-5.1); Sodium 128 mmol/L (136-145); Thyroid Stimulating Hormone 0.36 uIU/mL (0.27-4.20); Total Bilirubin 0.7 mg/dL (0.15-1.2); Total Protein 7.6 g/dL (6.6-8.7)
--- NOTE | 2022-05-21 07:25 | ECG_ITS ---
[facility] Test Date: 2022-05-21 Pat Name: Tony Galo Department: Room: [facility] Gender: Male Esthetician: : 1980 Requested By: Juan Chow Order Number: [id number] Yamileth MD: Salvatore Pepper M.D. Measurements Intervals [place] Rate: 78 P: 76 LA: 142 QRS: 75 QRSD: 86 T: 74 QT: 394 QTc: 450 Interpretive Statements SINUS RHYTHM POSSIBLE RIGHT ATRIAL ENLARGEMENT [0.25mV P-WAVE] POSSIBLE LEFT ATRIAL ENLARGEMENT [-0.1mV P-WAVE IN V1/V2] Compared to ECG 05/21/2022 03:55:07 ST (T wave) deviation no longer present Electronically Signed On 05-21-2022 18:22:39 CDT by Salvatore Pepper M.D. [id number]
[2022-05-21] MEDS: vancomycin 1,500 MG/300 ML PIGGYBACK 150 MG IV (07:26)
--- NOTE | 2022-05-21 08:40 | PC.PHAR ---
PT UNABLE TO VERIFY HOME MEDS - [facility] SEARCHED THE DATA BASE - PT HAS 5 PROFILES ON FILE AND SHOWS NOTHING FILLED.
[2022-05-21] MEDS: propofol 1,000 MG/100 ML INJ 26.67 MG IV ×2 (08:51→12:39)
--- NOTE | 2022-05-21 09:10 | PC.NURSE ---
Patient assessment done, pt is intubated and sedated, vital signs have been charted. Patient is resting in bed, there is bruising noted on both lower extremities, oral care and suction were done on patient. Patient is on ventilator, lung sounds and heart sounds are normal. Patient has little urine output at this time but Dr. Garcia has asked us to increase the patient's fluid intake rate. Patient has not had any seizure activity witnessed since we came on shift at 7am.
[2022-05-21 09:15] LABS: Troponin 5 2HR 172.1 ng/L (0-15)
[2022-05-21 11:11] LABS: Anion Gap 22.4 (5-19); Blood Urea Nitrogen 22 mg/dL (6-20); Calcium 8.8 mg/dL (8.5-10.5); Carbon Dioxide 22 mmol/L (22-29); Chloride 90 mmol/L (98-107); Glomerular Filtration Rate 60.2 mL/min (90-130); Glucose 102 mg/dL (65-115); Osmolality Calculated 276 mOsm/kg (285-295); Potassium 3.4 mmol/L (3.5-5.1); Sodium 131 mmol/L (136-145)
[2022-05-21 14:18] LABS: Anion Gap 21.4 (5-19); Blood Urea Nitrogen 21 mg/dL (6-20); Calcium 9.2 mg/dL (8.5-10.5); Carbon Dioxide 23 mmol/L (22-29); Chloride 89 mmol/L (98-107); Glomerular Filtration Rate 60.2 mL/min (90-130); Glucose 84 mg/dL (65-115); Osmolality Calculated 272 mOsm/kg (285-295); Potassium 3.4 mmol/L (3.5-5.1); Sodium 130 mmol/L (136-145)
[2022-05-21] MEDS: sodium chloride 0.9% 1,000 ML 125 ML IV (16:27)
[2022-05-21] MEDS: propofol 1,000 MG/100 ML INJ 30.48 MG IV (16:27)
[2022-05-21] MEDS: propofol 1,000 MG/100 ML INJ 28.58 MG IV (19:35)
[2022-05-22] VITALS (52 sets, daily range): BP systolic 102–161; BP diastolic 58–106; PULSE 51–97; RESP 17–35; TEMP 36.9–37.1; O2SAT 90–99
[2022-05-22] MEDS: vancomycin 1,500 MG/300 ML PIGGYBACK 150 MG IV (00:25)
[2022-05-22] MEDS: pantoprazole 40 mg SDV IVP (02:19)
[2022-05-22] MEDS: cefTRIAXone 2,000 MG in sodium chloride 0.9% (plus) 50 ML 100 MG IV (04:00)
[2022-05-22 04:45] LABS: Basophils % 0.2 %; Hematocrit 44.7 % (42.0-52.0); Hemoglobin 15.2 g/dL (11.7-16.6); Lymphocytes # 1.2 10^3/uL (0.8-4.8); Lymphocytes % 10.9 %; Mean Corpuscular Hemoglobin 32.7 pg (28.0-34.0); Mean Corpuscular Volume 96.1 fl (80-94); Mean Platelet Volume 9.9 fL (7.4-10.4); Monocytes # 0.7 10^3/uL (0.2-0.9); Monocytes % 6.4 %; Neutrophils # 8.84 10^3/uL (1.8-7.7); Neutrophils % 82.1 %; Nucleated Red Blood Cells % 0 %; Platelet Count 170 10^3/cmm (130-400); Red Blood Count 4.65 10^6/uL (4.1-5.3); Red Cell Distribution Width 13.4 % (12.1-15.1); White Blood Count 10.8 10^3/uL (4.0-10.0)
[2022-05-22 05:04] LABS: ABG PCO2 35.3 mmHg (35-45); ABG PH Result 7.42 (7.35-7.45); Alveolar-Arterial Oxygen Gradi 14.5 mmHg (5-10); Arterial Blood Gas Hematocrit 44.6 % (42-52); Blood Gas Operator Identificat JB; Blood Gas Sample Site Brachial, right; Blood Gas Sample Type Arterial; Carboxyhemoglobin 1.1 %THgb (0.4-20.1); HCO3 ABG 22.9 mmol/L (22-26); HGB O2 Sat 88.9 % (95-100); Ionized Calcium Level - ABG 1.2 mmol/L (1.1-1.4); Oxygen Device VENT; Oxygen Saturation ABG 90.7; PO2 ABG 57.9 mmHg (80.0-100.0); Potassium Level - ABG 3.2 mmol/L (3.5-5.0); Total Hemoglobin 14.6 g/dL (14-18)
[2022-05-22 05:09] LABS: Alanine Aminotransferase 35 U/L (0-41); Alkaline Phosphatase 120 IU/L (40-130); Aspartate Amino Transferase 81 U/L (0-40); Blood Urea Nitrogen 17 mg/dL (6-20); Calcium 8.9 mg/dL (8.5-10.5); Carbon Dioxide 23 mmol/L (22-29); Chloride 95 mmol/L (98-107); Globulin 3.1 g/dL (1.3-4.6); Glomerular Filtration Rate 73.1 mL/min (90-130); Glucose 76 mg/dL (65-115); Magnesium 2.2 mg/dL (1.7-2.3); Osmolality Calculated 278 mOsm/kg (285-295); Sodium 134 mmol/L (136-145); Total Bilirubin 0.6 mg/dL (0.15-1.2); Total Protein 7.1 g/dL (6.6-8.7)
[2022-05-22 05:11] LABS: Anion Gap 19.6 (5-19); Potassium 3.6 mmol/L (3.5-5.1)
[2022-05-22 05:25] LABS: Creatine Phosphokinase 5012 U/L (39-308)
--- NOTE | 2022-05-22 06:00 | XRR_ITS ---
PROCEDURE INFORMATION: Exam: XR Chest Exam date and time: 05/22/2022 5:31 AM Age: 42 years old Clinical indication: Shortness of breath; Additional info: Hypoxia TECHNIQUE: Imaging protocol: Radiologic exam of the chest. Views: 1 view. COMPARISON: CR (CHEST, ) 05/20/2022 10:17 PM FINDINGS: Tubes, catheters and devices: An endotracheal tube is placed with its tip 5.7 cm from the shey. New a nasogastric tube is present with its tip in the proximal stomach. Proximal side port is within the distal esophagus. New EKG leads overlie the chest. New there is evidence of healed rib fractures on the right. Lungs: Unremarkable. No consolidation. Pleural spaces: Unremarkable. No pleural effusion. No pneumothorax. Heart/Mediastinum: Unremarkable. No cardiomegaly. Bones/joints: See Tubes, catheters and devices finding. XR/XR chest 1V portable [id number] IMPRESSION: 1. Endotracheal tube tip 5.7 cm from the shey. 2. Nasogastric tube tip in proximal stomach. 3. Stable appearance of the chest compared with 05/20/2022.
[2022-05-22] MEDS: sodium chloride 0.9% 1,000 ML 125 ML IV (06:31)
[2022-05-22] MEDS: propofol 1,000 MG/100 ML INJ 19.05 MG IV (08:23)
[2022-05-22] MEDS: lamoTRIgine 100 mg Tablet 200 MG PO ×2 (08:24→17:17)
[2022-05-22] MEDS: dexmedeTOMIDine 0.9 % NaCL 400 MCG/100 ML PREMIX IV (08:27)
[2022-05-22 10:07] LABS: Levetiracetam Immunoassy 40.5 mcg/mL (6.0-46.0)
--- NOTE | 2022-05-22 12:35 | PC.NURSE ---
Pt was extubated at 1231, he tolorated it well and had a few ice chips after and tolorated it well, well continue to monitor
--- NOTE | 2022-05-22 13:13 | P.PN_ITS ---
Subjective Subjective: Patient was seen and examined this morning no reported seizure, currently he was only minimal vent settings, hemodynamically stable, patient has been extubated to nasal cannula. He has done well postextubation, though is requiring Precedex for now. His other vitals and labs have been reviewed. Medications: Medication Review Details: Generic Name Dose Route Start Last Admin Trade Name Shazia PRN Reason Stop Dose Admin Propofol 1,000 mg in 100 m ls @ 0 mls/hr 05/20/22 22:15 05/22/22 10:45 Diprivan IV 0 mcg/kg/min .Q0M DEMETRIUS 0 mls/hr Titration Protocol Per Protocol Ceftriaxone Sodium 2,000 mg/ 50 mls @ 100 mls/ hr 05/21/22 02:37 05/22/22 06:53 Sodium Chloride IV Infused Q12H DEMETRIUS Infusion Protocol Vancomycin/PEG/NAD A/Lysine/Water 1,500 mg in 300 m ls @ 150 mls/hr 05/21/22 06:00 05/22/22 06:53 Vancocin IV Infused Q18H DEMETRIUS Infusion Sodium Chloride 1,000 mls @ 50 ml s/hr 05/21/22 15:30 05/22/22 07:33 Sodium Chloride 0.9% IV Not Given .Q20H DEMETRIUS dexmedeTOMIDine 0. 9 % NaCL 400 mcg in 100 ml s @ 0 mls/hr 05/22/22 08:00 05/22/22 10:44 Precedex IV 0.4 mcg/kg/hr .Q0M DEMETRIUS 5.44 mls/hr Titration Protocol Per Protocol Lamotrigine 200 mg 05/22/22 09:00 05/22/22 08:24 Lamotrigine 100 Mg Tablet PO 200 mg BID DEMETRIUS Administration Pantoprazole Sodiu m 40 mg 05/21/22 02:00 05/22/22 02:19 Pantoprazole 40 Mg Sdv IVP 40 mg Q12H DEMETRIUS Administration Vitals/I&O/Wt Last Vital Signs Temp 98.7 F 05/22/22 06:00 Pulse 84 05/22/22 12:30 Resp 26 H 05/22/22 12:30 BP 124/71 05/22/22 12:30 Pulse Ox 95 05/22/22 12:30 05/21/22 05/22/22 05/22/22 22:59 06:59 14:59 Intake Total 323.146 / 563.584 6808.358 / 2260.504 52.620 / 52.620 Output Total 1800 / 2100 600 / 2700 400 / 400 Balance -1476.854 / -1211.854 772.358 / -439.496 -347.380 / -347.380 Weight last 48 hrs Weight 54.431 kg Weight 54.431 kg Weight 63.503 kg Physical Exam HENMT: COMMON NORMALS: normocephalic and atraumatic HEAD & SCALP: normocephalic and atraumatic Resp: COMMON NORMALS: clear to auscultation bilaterally EFFORT & INSPECTION: Yes symmetric chest movement AUSCULTATION: clear to auscultation bilaterally Cardio: COMMON NORMALS: regular rate, regular rhythm, S1 normal heart sound present, S2 normal heart sound present, No gallops present (Cardio), No murmurs present (Cardio), No rub (Cardio) and Peripheral pulses 2+ throughout RATE: regular rate RHYTHM: regular rhythm HEART SOUNDS: S1 normal heart sound present and S2 normal heart sound present PERIPHERAL PULSES: Peripheral pulses 2+ throughout GI: COMMON NORMALS: Normal to inspection, nondistended, normoactive bowel sounds present, Soft to palpation, non-tender, No hepatosplenomegaly present and no masses AUSCULTATION: Yes normoactive bowel sounds PALPATION: Yes Soft to palpation and Yes No hepatosplenomegaly present RECTAL EXAM: Yes deferred Extremity: COMMON NORMALS: no clubbing, cyanosis or edema and no pedal edema Urinary Catheter Management: Michael: Cath Placed During This Visit: no Reason for Continuing Indwelling Catheter: Accurate Measurement of Urinary Output in Critically Ill Patients Data : 05/22/22 04:23 05/22/22 04:23 Micro: Microbiology 05/21/22 00:37 Urine Culture - Preliminary Urine,Clean Catch 05/21/22 12:25 Gram Stain - Final Sputum - Endotracheal Tube Aspirate 05/21/22 02:00 Blood Culture - Preliminary Blood NEGATIVE TO DATE 05/21/22 02:04 Blood Culture - Preliminary Blood NEGATIVE TO DATE A&P Assessment and plan (1) Status epilepticus: Multiple seizures today, including reported long seizure by his brother which made family concerned about him maintaining his airway. Received benzodiazepines by EMS, here reporting no further seizure prescription with nursing staff, ER physician documentation shows possible seizure here in the hospital. With AMS, agitation, also copious secretions, with concern for airway compromise was intubated. Currently moving all extremities, not following commands, without obvious seizure-like activity. When his brother called and she reported that patient apparently has been taking all his medications, but could not name what they are. Advised the medications listed on external medication history. He does have history of repeated noncompliance with his medications with multiple hospitalizations and intubations back in 2015-16. Medications once reconciled. He previously used to be on Keppra and Lamictal. We will check levels. Additionally start Keppra 500 mg every 12 for now IV. Would wean off sedation in the morning to reassess mental status. As he is likely postictal currently, but if still without improvement in mental status would obtain EEG. Consideration of neurology consultation. With history of alcohol dependence and heavy drinking, binge drinking, EtOH level is low, but his recent alcohol intake habits are unknown. Possibility also of alcohol withdrawal seizure. Would confirm his habits with his family when they can be reached tomorrow. Evaluation of AST, 78. Check CK. Follow-up chest x-ray. Status: Acute (2) Hyponatremia: Unknown duration. Previously at times mild hyponatremia, currently worsening prior, 126. No obvious pedal edema on CT. Possibly secondary to multiple recent seizures. Does appear dehydrated as well appears to have also hypovolemic hyponatremia component. Received 1L NS. Recheck sodium. Slow NS infusion 30 mill per hour. Monitor sodium at intervals. Urine studies. TSH Status: Acute (3) Troponin level elevated: Troponin abnormality, no known prior coronary disease. History of smoking. Follow-up troponin EKG series. Assess TTE. Suspect likely demand ischemia with acute condition, but consider further assessment depending on results. If no evidence of acute MD consider referral for further risk stratification with stress testing on resolution of acute condition. Status: Acute (4) Hyperglycemia: Hyperglycemia 119 without known history of diabetes. Possibly related to stress with acute condition. Check A1c. Status: Acute (5) Chronic kidney disease: Status: Acute (6) UTI (urinary tract infection): Possible UTI. Urine culture pending. For now empirically ceftriaxone Status: Acute (7) Gastritis: Red/brown fluid draining from NGT, prior to that with retching. Possible gastritis, possible PUD, Saranya-Mckoy tear. No history of liver cirrhosis, gastric varices. Unknown EtOH, history of heavy intake. Unknown NSAID use. PPI twice daily. Follow-up CBC. No widening of mediastinum on x-ray. Monitor NG output. Consideration of inpatient versus outpatient endoscopic evaluation. Status: Acute Plan 42-year-old male with past medical history of seizure disorder alcohol abuse was brought in from home after he was experiencing recurrent seizure, admitted for the management of status epilepticus, was initially intubated and placed on mechanical ventilation for airway protection. Assessment: Seizure disorder Alcohol abuse disorder Monitor for alcohol withdrawal Hyponatremia JAYDE ON CKD Elevated troponin Rhabdomyolysis Possible alcoholic gastritis Plan: Blood culture:NTD Urine culture:NTD MRSA PCR Continue Keppra 500 mg IV twice daily Continue lamotrigine 200 MG PO BID Continue Protonix 40 mg IV daily On Lubrium 20 mg po q6h Continue gentle IV hydration with normal saline Monitor intake output charting Avoid nephrotoxic's Monitor serum sodium CIWA protocol He was empirically on Vanco and ceftriaxone we will discontinue antibiotics for now. Fall precaution Aspiration precaution CODE STATUS: Full code DVT prophylaxis: On Lovenox Attestations Medical Necessity Statement*: Patient is still in hospital for management of seizure disorder. Time Spent in Patient Care: Greater than 35 minutes (>than 50% of time spent in counselling and/or direct pt care on unit) . Critical Care Time: The high probability of a clinically significant, sudden or life threatening deterioration of the patient's [] system(s) required my full and direct attention, intervention and personal management. The critical care time is as shown. 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
--- NOTE | 2022-05-22 13:30 | PC.NURSE ---
Pt was trying to get out of bed, he was attempting to pull off all the wires and equipment, when i walked into the room pt started profanity toward me, pt was helped back into the bed and was educated about staying in bed. Precedex was increased to 0.4
[2022-05-22] MEDS: chlordiazePOXIDE 10 mg Capsule 20 MG PO ×2 (13:59→21:22)
[2022-05-22] MEDS: enoxaparin 30 mg/0.3 mL Syringe SUBCUT (13:59)
[2022-05-22] MEDS: sodium chloride 0.9% 1,000 ML 50 ML IV (21:25)
[2022-05-22] MEDS: dexmedeTOMIDine 0.9 % NaCL 400 MCG/100 ML PREMIX 10.89 MCG IV (21:34)
[2022-05-23] VITALS (25 sets, daily range): BP systolic 124–167; BP diastolic 75–108; PULSE 50–97; RESP 14–34; TEMP 36.2–36.8; O2SAT 95–98
[2022-05-23] MEDS: chlordiazePOXIDE 10 mg Capsule 20 MG PO ×4 (01:50→19:41)
[2022-05-23] MEDS: LORazepam 2 mg/mL INJ 1 mL IVP ×4 (03:12→19:42)
[2022-05-23 05:18] LABS: Basophils % 0.2 %; Eosinophils % 0.4 %; Hematocrit 37.3 % (42.0-52.0); Hemoglobin 12.5 g/dL (11.7-16.6); Lymphocytes # 0.9 10^3/uL (0.8-4.8); Lymphocytes % 8.9 %; Mean Corpuscular HGB Conc 33.5 g/dL (30.0-36.0); Mean Corpuscular Hemoglobin 32.4 pg (28.0-34.0); Mean Corpuscular Volume 96.6 fl (80-94); Mean Platelet Volume 9.9 fL (7.4-10.4); Monocytes # 0.7 10^3/uL (0.2-0.9); Monocytes % 7.1 %; Neutrophils # 8.33 10^3/uL (1.8-7.7); Neutrophils % 82.8 %; Nucleated Red Blood Cells % 0 %; Platelet Count 151 10^3/cmm (130-400); Red Blood Count 3.86 10^6/uL (4.1-5.3); Red Cell Distribution Width 13.1 % (12.1-15.1); White Blood Count 10.1 10^3/uL (4.0-10.0)
[2022-05-23 05:48] LABS: Alanine Aminotransferase 40 U/L (0-41); Albumin Level 3.3 g/dL (3.5-5.2); Alkaline Phosphatase 180 IU/L (40-130); Anion Gap 18.4 (5-19); Aspartate Amino Transferase 91 U/L (0-40); Blood Urea Nitrogen 12 mg/dL (6-20); Calcium 8.5 mg/dL (8.5-10.5); Carbon Dioxide 19 mmol/L (22-29); Chloride 104 mmol/L (98-107); Glomerular Filtration Rate 123.1 mL/min (90-130); Glucose 80 mg/dL (65-115); Osmolality Calculated 285 mOsm/kg (285-295); Potassium 3.4 mmol/L (3.5-5.1); Sodium 138 mmol/L (136-145); Total Bilirubin 0.7 mg/dL (0.15-1.2); Total Protein 6.3 g/dL (6.6-8.7)
[2022-05-23 06:10] LABS: Creatine Phosphokinase 3779 U/L (39-308)
[2022-05-23 06:24] LABS: CKMB 34.2 ng/mL (0-10.4); CKMB Relative Index 0.9 % (0.0-5.3)
[2022-05-23] MEDS: dexmedeTOMIDine 0.9 % NaCL 400 MCG/100 ML PREMIX 5.44 MCG IV (06:48)
[2022-05-23] MEDS: lamoTRIgine 100 mg Tablet 200 MG PO ×2 (08:37→17:46)
[2022-05-23] MEDS: pantoprazole 40 mg SDV IVP (08:37)
--- NOTE | 2022-05-23 12:55 | PM.PN ---
Subjective Subjective: Patient was seen and examined this morning continues to be on minimum of Precedex, leukocytosis has more or less resolved, no seizure activity reported, rhabdomyolysis is improving, serum creatinine has normalized. Medications: Medication Review Details: Generic Name Dose Route Start Last Admin Trade Name Shazia PRN Reason Stop Dose Admin Propofol 1,000 mg in 100 m ls @ 0 mls/hr 05/20/22 22:15 05/22/22 10:45 Diprivan IV 0 mcg/kg/min .Q0M DEMETRIUS 0 mls/hr Titration Protocol Per Protocol Ceftriaxone Sodium 2,000 mg/ 50 mls @ 100 mls/ hr 05/21/22 02:37 05/22/22 06:53 Sodium Chloride IV Infused Q12H DEMETRIUS Infusion Protocol Vancomycin/PEG/NAD A/Lysine/Water 1,500 mg in 300 m ls @ 150 mls/hr 05/21/22 06:00 05/22/22 06:53 Vancocin IV Infused Q18H DEMETRIUS Infusion Sodium Chloride 1,000 mls @ 50 ml s/hr 05/21/22 15:30 05/22/22 07:33 Sodium Chloride 0.9% IV Not Given .Q20H DEMETRIUS dexmedeTOMIDine 0. 9 % NaCL 400 mcg in 100 ml s @ 0 mls/hr 05/22/22 08:00 05/22/22 10:44 Precedex IV 0.4 mcg/kg/hr .Q0M DEMETRIUS 5.44 mls/hr Titration Protocol Per Protocol Lamotrigine 200 mg 05/22/22 09:00 05/22/22 08:24 Lamotrigine 100 Mg Tablet PO 200 mg BID DEMETRIUS Administration Pantoprazole Sodiu m 40 mg 05/21/22 02:00 05/22/22 02:19 Pantoprazole 40 Mg Sdv IVP 40 mg Q12H DEMETRIUS Administration Vitals/I&O/Wt Last Vital Signs Temp 97.2 F L 05/23/22 12:00 Pulse 74 05/23/22 12:00 Resp 22 H 05/23/22 12:00 BP 124/84 05/23/22 12:00 Pulse Ox 96 05/23/22 12:00 05/22/22 05/23/22 05/23/22 22:59 06:59 14:59 Intake Total 271.16 / 1452.815 95.284 / 1548.099 360.742 / 360.742 Output Total 1725 / 2125 275 / 2400 Balance -1453.84 / -672.185 -179.716 / -851.901 360.742 / 360.742 Weight last 48 hrs Weight 53.524 kg Weight 54.431 kg Physical Exam HENMT: COMMON NORMALS: normocephalic and atraumatic HEAD & SCALP: normocephalic and atraumatic Resp: COMMON NORMALS: clear to auscultation bilaterally EFFORT & INSPECTION: Yes symmetric chest movement AUSCULTATION: clear to auscultation bilaterally Cardio: COMMON NORMALS: regular rate, regular rhythm, S1 normal heart sound present, S2 normal heart sound present, No gallops present (Cardio), No murmurs present (Cardio), No rub (Cardio) and Peripheral pulses 2+ throughout RATE: regular rate RHYTHM: regular rhythm HEART SOUNDS: S1 normal heart sound present and S2 normal heart sound present PERIPHERAL PULSES: Peripheral pulses 2+ throughout GI: COMMON NORMALS: Normal to inspection, nondistended, normoactive bowel sounds present, Soft to palpation, non-tender, No hepatosplenomegaly present and no masses AUSCULTATION: Yes normoactive bowel sounds PALPATION: Yes Soft to palpation and Yes No hepatosplenomegaly present RECTAL EXAM: Yes deferred Extremity: COMMON NORMALS: no clubbing, cyanosis or edema and no pedal edema Urinary Catheter Management: Michael: Cath Placed During This Visit: no Reason for Continuing Indwelling Catheter: Accurate Measurement of Urinary Output in Critically Ill Patients Data : 05/23/22 04:50 05/23/22 04:50 Micro: Microbiology 05/21/22 12:25 Gram Stain - Final Sputum - Endotracheal Tube Aspirate Sputum Culture - Final 05/21/22 00:37 Urine Culture - Final Urine,Clean Catch A&P Assessment and plan (1) Status epilepticus: Multiple seizures today, including reported long seizure by his brother which made family concerned about him maintaining his airway. Received benzodiazepines by EMS, here reporting no further seizure prescription with nursing staff, ER physician documentation shows possible seizure here in the hospital. With AMS, agitation, also copious secretions, with concern for airway compromise was intubated. Currently moving all extremities, not following commands, without obvious seizure-like activity. When his brother called and she reported that patient apparently has been taking all his medications, but could not name what they are. Advised the medications listed on external medication history. He does have history of repeated noncompliance with his medications with multiple hospitalizations and intubations back in 2015-16. Medications once reconciled. He previously used to be on Keppra and Lamictal. We will check levels. Additionally start Keppra 500 mg every 12 for now IV. Would wean off sedation in the morning to reassess mental status. As he is likely postictal currently, but if still without improvement in mental status would obtain EEG. Consideration of neurology consultation. With history of alcohol dependence and heavy drinking, binge drinking, EtOH level is low, but his recent alcohol intake habits are unknown. Possibility also of alcohol withdrawal seizure. Would confirm his habits with his family when they can be reached tomorrow. Evaluation of AST, 78. Check CK. Follow-up chest x-ray. Status: Acute (2) Hyponatremia: Unknown duration. Previously at times mild hyponatremia, currently worsening prior, 126. No obvious pedal edema on CT. Possibly secondary to multiple recent seizures. Does appear dehydrated as well appears to have also hypovolemic hyponatremia component. Received 1L NS. Recheck sodium. Slow NS infusion 30 mill per hour. Monitor sodium at intervals. Urine studies. TSH Status: Acute (3) Troponin level elevated: Troponin abnormality, no known prior coronary disease. History of smoking. Follow-up troponin EKG series. Assess TTE. Suspect likely demand ischemia with acute condition, but consider further assessment depending on results. If no evidence of acute [place] consider referral for further risk stratification with stress testing on resolution of acute condition. Status: Acute (4) Hyperglycemia: Hyperglycemia 119 without known history of diabetes. Possibly related to stress with acute condition. Check A1c. Status: Acute (5) Chronic kidney disease: Status: Acute (6) UTI (urinary tract infection): Possible UTI. Urine culture pending. For now empirically ceftriaxone Status: Acute (7) Gastritis: Red/brown fluid draining from NGT, prior to that with retching. Possible gastritis, possible PUD, Saranya-Mckoy tear. No history of liver cirrhosis, gastric varices. Unknown EtOH, history of heavy intake. Unknown NSAID use. PPI twice daily. Follow-up CBC. No widening of mediastinum on x-ray. Monitor NG output. Consideration of inpatient versus outpatient endoscopic evaluation. Status: Acute Plan 42-year-old male with past medical history of seizure disorder alcohol abuse was brought in from home after he was experiencing recurrent seizure, admitted for the management of status epilepticus, was initially intubated and placed on mechanical ventilation for airway protection. Assessment: Seizure disorder Alcohol abuse disorder Alcohol withdrawal Hyponatremia JAYDE ON CKD Elevated troponin Rhabdomyolysis Possible alcoholic gastritis Plan: Blood culture:NTD Urine culture:NTD MRSA PCR Continue Keppra 500 mg IV twice daily Continue lamotrigine 200 MG PO BID Continue Protonix 40 mg IV daily On Lubrium 20 mg po q6h Continue gentle IV hydration with normal saline Monitor intake output charting Avoid nephrotoxic's Monitor serum sodium CIWA protocol He was empirically on Vanco and ceftriaxone we will discontinue antibiotics for now. Fall precaution Aspiration precaution CODE STATUS: Full code DVT prophylaxis: On Lovenox Attestations Medical Necessity Statement*: Patient is in hospital for management of alcohol withdrawal seizure disorder. Time Spent in Patient Care: Greater than 35 minutes (>than 50% of time spent in counselling and/or direct pt care on unit). 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
[2022-05-23] MEDS: enoxaparin 30 mg/0.3 mL Syringe SUBCUT (13:10)
--- NOTE | 2022-05-23 18:20 | PC.NURSE ---
Pt up in chair in room with assist from nurse Tolerated well. Remains confused to conversations that we've had through the day but is oriented to time , place and person. Continually asking when he's going home, redirected and reeducated PRN. VSS. Off precedex gtt most of the afternoon. Requiring some ativan for agitation at times. No other issues noted. Will monitor.
--- NOTE | 2022-05-23 19:00 | PC.NURSE ---
Pt. laying in bed, anxious but no needs or complaints expressed at this time. Pt. is pulling off monitor cables often and difficult to keep them on. Will continue to monitor as much as patient allows.
[2022-05-23] MEDS: sodium chloride 0.9% 1,000 ML 50 ML IV (19:41)
--- NOTE | 2022-05-23 22:00 | PC.NURSE ---
Pt. repeatedly attempts to get out of bed. After redirection patient will get back in bed. Will continue to monitor.
[2022-05-24] VITALS (13 sets, daily range): BP systolic 138–178; BP diastolic 90–114; PULSE 50–104; RESP 19–33; TEMP 36.6; O2SAT 93–98
[2022-05-24] MEDS: LORazepam 2 mg/mL INJ 1 mL IVP ×3 (00:05→07:13)
[2022-05-24] MEDS: chlordiazePOXIDE 10 mg Capsule 20 MG PO ×2 (01:30→07:15)
--- NOTE | 2022-05-24 03:30 | PC.NURSE ---
Pt. again attempted to get out of bed, hallucinating stating there are people that are shooting guns outside and stating he is leaving to go smoke a joint. Getting very loud and cussing while confused. Was able to get patient back to bed and started precedex drip. Will continue to monitor.
--- NOTE | 2022-05-24 04:00 | PC.NURSE ---
Pt. is now resting comfortably in bed with no needs identified at this time.
[2022-05-24 04:54] LABS: Basophils % 0.4 %; Eosinophils # 0.1 10^3/uL (0.0-0.8); Eosinophils % 0.6 %; Hematocrit 35.8 % (42.0-52.0); Hemoglobin 12.4 g/dL (11.7-16.6); Lymphocytes # 1.1 10^3/uL (0.8-4.8); Lymphocytes % 10.5 %; Mean Corpuscular HGB Conc 34.6 g/dL (30.0-36.0); Mean Corpuscular Hemoglobin 33.1 pg (28.0-34.0); Mean Corpuscular Volume 95.5 fl (80-94); Mean Platelet Volume 10.5 fL (7.4-10.4); Monocytes # 0.9 10^3/uL (0.2-0.9); Monocytes % 8.5 %; Neutrophils # 8.67 10^3/uL (1.8-7.7); Neutrophils % 79.5 %; Nucleated Red Blood Cells % 0 %; Platelet Count 180 10^3/cmm (130-400); Red Blood Count 3.75 10^6/uL (4.1-5.3); Red Cell Distribution Width 12.8 % (12.1-15.1); White Blood Count 10.9 10^3/uL (4.0-10.0)
[2022-05-24 05:13] LABS: Alanine Aminotransferase 49 U/L (0-41); Albumin Level 3.4 g/dL (3.5-5.2); Alkaline Phosphatase 147 IU/L (40-130); Aspartate Amino Transferase 102 U/L (0-40); Blood Urea Nitrogen 5 mg/dL (6-20); Calcium 8.9 mg/dL (8.5-10.5); Carbon Dioxide 23 mmol/L (22-29); Chloride 102 mmol/L (98-107); Globulin 2.7 g/dL (1.3-4.6); Glucose 86 mg/dL (65-115); Osmolality Calculated 287 mOsm/kg (285-295); Sodium 140 mmol/L (136-145); Total Bilirubin 0.6 mg/dL (0.15-1.2); Total Protein 6.1 g/dL (6.6-8.7)
[2022-05-24 05:43] LABS: Creatine Phosphokinase 2457 U/L (39-308)
[2022-05-24] MEDS: dexmedeTOMIDine 0.9 % NaCL 400 MCG/100 ML PREMIX 16.33 MCG IV (05:49)
[2022-05-24 05:59] LABS: CKMB Relative Index 1.5 % (0.0-5.3)
[2022-05-24] MEDS: levETIRAcetam 500 mg Tablet PO (09:01)
[2022-05-24] MEDS: lamoTRIgine 100 mg Tablet 200 MG PO (09:01)
[2022-05-24] MEDS: pantoprazole 40 mg SDV IVP (09:01)
--- NOTE | 2022-05-24 10:37 | PC.NURSE ---
Patient wants to leave AMA, Dr. babcock notified and is at bedside at this time
--- NOTE | 2022-05-24 10:45 | PC.NURSE ---
patient still wanting to leave AMA after speaking with Dr. Bello. Patient signed AMA form
--- NOTE | 2022-05-24 10:51 | PC.NURSE ---
All Ivs removed
[2022-05-24 11:10] LABS: Vitamin B12 742 pg/mL (232-1245)
--- NOTE | 2022-05-24 11:15 | PC.NURSE ---
Dr. Bello and this nurse both educated about importance to health and safety on staying in hospital. patient determined to leave AMA. family called for ride
--- NOTE | 2022-05-24 11:27 | P.DS_ITS ---
Discharge Providers Date of Admission: 05/21/22 01:18 Date of Discharge: May 24, 2022 Attending Provider at Admission: Juan Chow Attending Provider at Discharge: Petar Bello MD Primary Care Provider: Stefan Enciso MD Diagnoses at Discharge Discharge Diagnosis (1) Status epilepticus: Status: Acute (2) Hyponatremia: Status: Acute (3) Troponin level elevated: Status: Acute (4) Hyperglycemia: Status: Acute (5) Chronic kidney disease: Status: Acute (6) UTI (urinary tract infection): Status: Acute (7) Gastritis: Status: Acute Reason for Visit Reason for Visit: SEIZURE Brief History: History as per HPI: Admitted on 05/21: 42-year-old gentleman was brought in by EMS which was called in today by his brother with whom he resides due to multiple seizures today, including one very long one due to which family became concerned about him being able to maintain his airway, and called 911.? He was reportedly found by EMS with altered mental status, retching, received ketamine, Ativan, in ER noted to be retching again, with limited history due to altered mental status.? Becoming restless, agitated, as well as with copious secretions, concern for respiratory compromise, was intubated in ER. His brother had called back providing the history above, although I was not able to reach him and tried calling back again to confirm additional details.? Reportedly brother could relate to nursing staff that patient has been partial taking his medications, although family could not relay what they were.? Do not see any medications listed on external medication history. He was previously on Keppra and Lamictal due to history of seizures, with multiple admissions over 2014- period, with nonadherence with taking his medications, with multiple seizures, intubations.? With concerns related to him a number of times regarding risking him of sudden in epilepsy. At this time we also unable to confirm his recent alcohol intake habits, although he does have history of alcohol use disorder in the past. Review of systems at this time is not obtainable.? He is noted to have leukocytosis 20.5.? Afebrile at 99.2.? With hyponatremia sodium 126, chloride 88, bicarb 16, anion gap 26.5.? AST 78.? Alk phos 156.? Troponin baseline 143.? UA with 3+ blood, 25-40 RBC, 15-25 WBC, 0-4 squamous Pelo cells.? 0-4 hyaline casts.? 1+ yeast.? Trace mucus.? Urine drug screen positive for marijuana, benzodiazepine. Hospital Course Hospital Course Patient was admitted to the hospital for further evaluation and management. He was admitted to the ICU due to concerns for status epilepticus, rhabdomyolysis and alcohol abuse. On admission patient was found to have altered mental status along with agitation. He was intubated with concerns for airway compromise in the ER. He was started on IV Keppra along with continuation of his home dose of Lamictal. On admission he was also found to be in hyponatremia with sodium level down to 126 for which he was started on IV fluids. Patient did have 1 episode of seizure on the day of admission prior to being loaded with Keppra. He was extubated to nasal cannula on 05/22. Patient did not have any episodes of seizure during hospitalization but did have episodes of agitation which were thought to be secondary to alcohol withdrawal and was treated with Precedex drip. Patient's Precedex drip was weaned off on 05/24. His CPK level is trending down but still elevated. Hyponatremia has resolved. Patient needed further hospitalization for further IV hydration, ruling out [employer] mass with MRI, further medication for alcohol withdrawal but after stopping Precedex drip when patient was more awake and alert he was adamant of going home. Patient was AOx3. He is aware he is in hospital because of seizures. Patient was counseled in detail regarding possible Sudden , recurrence of status epilepticus, possible acute kidney injury from rhabdomyolysis with need for further hydration but patient was adamant of leaving hospital hands left AGAINST MEDICAL ADVICE on 05/24. Keppra has been called into his pharmacy. He is to continue taking his Lamictal as before. Patient was counseled in detail regarding alcohol abstinence. He is advised to continue maintaining his hydration with 2 to 3 L of fluid daily. Physical Exam HENMT: COMMON NORMALS: normocephalic, atraumatic, EAC's normal, Normal external nose present and moist oral mucous membranes HEAD & SCALP: normocephalic and atraumatic NOSE: Normal external nose present EXTERNAL AUDITORY CANAL: EAC's normal OTHER: NGT in place draining red/brownish fluid. Eye: OTHER: Pupils symmetrical. Chest: CHEST: Yes Symmetrical chest wall rise Resp: COMMON NORMALS: clear to auscultation bilaterally EFFORT & INSPECTION: Yes symmetric chest movement AUSCULTATION: clear to auscultation bilaterally and rhonchi Cardio: COMMON NORMALS: regular rate, regular rhythm, S1 normal heart sound present, S2 normal heart sound present, No gallops present (Cardio), No murmurs present (Cardio), No rub (Cardio) and Peripheral pulses 2+ throughout RATE: regular rate and tachycardic RHYTHM: regular rhythm HEART SOUNDS: S1 normal heart sound present and S2 normal heart sound present PERIPHERAL PULSES: Peripheral pulses 2+ throughout GI: COMMON NORMALS: Normal to inspection, nondistended, normoactive bowel sounds present, Soft to palpation, non-tender, No hepatosplenomegaly present and no masses AUSCULTATION: Yes normoactive bowel sounds PALPATION: Yes Soft to palpation and Yes No hepatosplenomegaly present RECTAL EXAM: Yes deferred Extremity: COMMON NORMALS: no clubbing, cyanosis or edema and no pedal edema Neuro: COMMON NORMALS: moves all extremities Psych: COMMON NORMALS: mental status grossly normal Skin: RASHES: no rashes OTHER: Multiple abrasions and bruises on BL upper and lower extremities Urinary Catheter Management: Michael: Cath Placed During This Visit: yes, but has since been removed by the nurse Reason for Continuing Indwelling Catheter: Not indwelling catheter Date Urinary Catheter Removed: 05/24/22 Time Urinary Catheter Discontinued: 11:04 Discharge Data Studies Completed and Pending Completed Studies During Hospitalization Category Date Time Status CT cervical spin wo con* [id number] Stat Cat Scan 05/20/22 22:[address] head wo con* [id number] Stat Cat Scan 05/20/22 22:13 Completed XR acute abdomen series [id number] Routine Exams 05/21/22 04:38 Completed XR chest 1V portable [id number] Routine Exams 05/22/22 06:00 Completed XR chest 1V portable [id number] Stat Exams 05/20/22 22:13 Completed CV. echo complete* [id number] Routine Ultrasound 05/21/22 02:37 Completed Pending at discharge Category Date Time Status Blood Culture Stat Lab 05/21/22 02:00 Results CPK [Creatine Phosphokinase] AM LABS Lab 05/25/22 04:00 Ordered CPK [Creatine Phosphokinase] AM LABS Lab 05/26/22 04:00 Ordered CPK [Creatine Phosphokinase] AM LABS Lab 05/27/22 04:00 Ordered Comprehensive Metabolic Panel AM LABS Lab 05/25/22 04:00 Ordered Comprehensive Metabolic Panel AM LABS Lab 05/26/22 04:00 Ordered Comprehensive Metabolic Panel AM LABS Lab 05/27/22 04:00 Ordered Folate Level Routine Lab 05/24/22 10:17 Ordered Hemoglobin A1C AM LABS Lab 05/25/22 04:00 Ordered Lamotrigine (Lamictal) Level Routine Lab 05/21/22 05:23 Received Lipid Profile w/VLDL Routine Lab 05/25/22 04:00 Ordered Osmolality Urine Routine Lab 05/21/22 04:00 Received MR head wo con* [id number] Routine MRI 05/24/22 09:07 Ordered Radiology Impressions Cervical Spine CT 05/20/22 22:13 IMPRESSION: There are no acute osseous findings. Head CT 05/20/22 22:13 IMPRESSION: There are no acute intracranial findings. Chest/Abdomen X-ray 05/21/22 04:38 IMPRESSION: There are no acute abdominal findings. Chest X-Ray 05/22/22 06:00 IMPRESSION: 1. Endotracheal tube tip 5.7 cm from the shey. 2. Nasogastric tube tip in proximal stomach. 3. Stable appearance of the chest compared with 05/20/2022. Laboratory Results WBC 10.9 10^3/uL (4.0-10.0) H 05/24/22 04:00 RBC 3.75 10^6/uL (4.1-5.3) L 05/24/22 04:00 Hgb 12.4 g/dL (11.7-16.6) 05/24/22 04:00 Hct 35.8 % (42.0-52.0) L 05/24/22 04:00 MCV 95.5 fl (80-94) H 05/24/22 04:00 MCH 33.1 pg (28.0-34.0) 05/24/22 04:00 MCHC 34.6 g/dL (30.0-36.0) 05/24/22 04:00 RDW 12.8 % (12.1-15.1) 05/24/22 04:00 Plt Count 180 10^3/cmm (130-400) 05/24/22 04:00 MPV 10.5 fL (7.4-10.4) H 05/24/22 04:00 Neut % (Auto) 79.5 % 05/24/22 04:00 Lymph % (Auto) 10.5 % 05/24/22 04:00 Marshall % (Auto) 8.5 % 05/24/22 04:00 Eos % (Auto) 0.6 % 05/24/22 04:00 Baso % (Auto) 0.4 % 05/24/22 04:00 Neut # (Auto) 8.67 10^3/uL (1.8-7.7) H 05/24/22 04:00 Lymph # (Auto) 1.1 10^3/uL (0.8-4.8) 05/24/22 04:00 Marshall # (Auto) 0.9 10^3/uL (0.2-0.9) 05/24/22 04:00 Eos # (Auto) 0.1 10^3/uL (0.0-0.8) 05/24/22 04:00 Baso # (Auto) 0.0 10^3/uL (0.0-0.1) 05/24/22 04:00 Nucleated RBC % (auto) 0 % 05/24/22 04:00 Nucleated RBCs # 0.0 /100WBC 05/24/22 04:00 Specimen Type Arterial 05/22/22 04:50 Sample Site Brachial, right 05/22/22 04:50 ABG pH 7.42 (7.35-7.45) 05/22/22 04:50 ABG pCO2 35.3 mmHg (35-45) 05/22/22 04:50 ABG pO2 57.9 mmHg (80.0-100.0) L 05/22/22 04:50 ABG HCO3 22.9 mmol/L (22-26) 05/22/22 04:50 ABG O2 Saturation 90.7 05/22/22 04:50 ABG Base Excess -1.0 mmol/L (-2.0-2.0) 05/22/22 04:50 Hal Test N/a 05/22/22 04:50 A-a O2 Gradient 14.5 mmHg (5-10) H 05/22/22 04:50 Hematocrit 44.6 % (42-52) 05/22/22 04:50 Hgb O2 Saturation 88.9 % (95-100) L 05/22/22 04:50 Carboxyhemoglobin 1.1 %THgb (0.4-20.1) 05/22/22 04:50 Methemoglobin 1.0 % (0.4-1.5) 05/22/22 04:50 Total Hemoglobin 14.6 g/dL (14-18) 05/22/22 04:50 Sodium 135.0 mmol/L (131-143) 05/22/22 04:50 Potassium 3.2 mmol/L (3.5-5.0) L 05/22/22 04:50 Glucose 87.0 mg/dL (70-115) 05/22/22 04:50 Ionized Calcium 1.2 mmol/L (1.1-1.4) 05/22/22 04:50 O2 Delivery Device Vent 05/22/22 04:50 FiO2 30.0 % 05/22/22 04:50 Tidal Volume 0.40 05/22/22 04:50 PEEP 6.0 cmH20 05/22/22 04:50 Drug Safety Associate ID Ryder 05/22/22 04:50 Sodium 140 mmol/L (136-145) 05/24/22 04:00 Potassium 3.0 mmol/L (3.5-5.1) L 05/24/22 04:00 Chloride 102 mmol/L (98-107) 05/24/22 04:00 Carbon Dioxide 23 mmol/L (22-29) 05/24/22 04:00 Anion Gap 18.0 (5-19) 05/24/22 04:00 BUN 5 mg/dL (6-20) L 05/24/22 04:00 Creatinine 0.6 mg/dL (0.7-1.2) L 05/24/22 04:00 GFR Calculation 147.0 mL/min (90-130) H 05/24/22 04:00 Glucose 86 mg/dL (65-115) 05/24/22 04:00 Estimat Average Glucose 103 05/20/22 22:20 Hemoglobin A1c 5.2 % (4.0-6.0) 05/20/22 22:20 Calculated Osmolality 287 mOsm/kg (285-295) 05/24/22 04:00 Calcium 8.9 mg/dL (8.5-10.5) 05/24/22 04:00 Magnesium 2.2 mg/dL (1.7-2.3) 05/22/22 04:23 Total Bilirubin 0.6 mg/dL (0.15-1.2) 05/24/22 04:00 AST 102 U/L (0-40) H 05/24/22 04:00 ALT 49 U/L (0-41) H 05/24/22 04:00 Alkaline Phosphatase 147 IU/L (40-130) H 05/24/22 04:00 Creatine Kinase 2457 U/L (39-308) H* 05/24/22 04:00 CK-MB (CK-2) 39.0 ng/mL (0-10.4) H 05/24/22 04:00 CK-MB (CK-2) Rel Index 1.5 % (0.0-5.3) 05/24/22 04:00 Troponin T Baseline 259 ng/L (0-15) H* 05/21/22 05:23 Troponin T 120 Minute 172.1 ng/L (0-15) H 05/21/22 08:36 Delta Troponin T -86.9 ABS# (0-10) L 05/21/22 08:36 Troponin T Hi Sens 6Hr 105.0 ng/L (0-15) H 05/21/22 12:59 Troponin T Hi Sens 6Hr Delta -154.0 ng/L (0-12) L 05/21/22 12:59 Total Protein 6.1 g/dL (6.6-8.7) L 05/24/22 04:00 Albumin 3.4 g/dL (3.5-5.2) L 05/24/22 04:00 Globulin 2.7 g/dL (1.3-4.6) 05/24/22 04:00 Vitamin B12 742 pg/mL (232-1245) 05/24/22 04:46 TSH 0.36 uIU/mL (0.27-4.20) 05/21/22 05:23 Urine Color Yellow (Yellow) 05/21/22 00:37 Urine Appearance Clear (CLEAR) 05/21/22 00:37 Urine pH 5 (5-7) 05/21/22 00:37 Ur Specific [place] 1.020 (1.005-1.030) 05/21/22 00:37 Urine Protein 1+ (Negative) H 05/21/22 00:37 Urine Glucose (UA) 4+ (Normal) H 05/21/22 00:37 Urine Ketones Negative (Negative) 05/21/22 00:37 Urine Blood 3+ (Negative) H 05/21/22 00:37 Urine Nitrate Negative (Negative) 05/21/22 00:37 Urine Bilirubin Neg (Negative) 05/21/22 00:37 Urine Urobilinogen Norm mg/dL (Negative) 05/21/22 00:37 Ur Leukocyte Esterase Negative (Negative) 05/21/22 00:37 Urine RBC 25-40 /hpf (0-2) H 05/21/22 00:37 Urine WBC 15-25 /hpf (0-5) H 05/21/22 00:37 Ur Squamous Epith Cells 0-4 /hpf (0-5) H 05/21/22 00:37 Amorphous Sediment Not Reportable 05/21/22 00:37 Urine Bacteria Trace /hpf (NONE) 05/21/22 00:37 Hyaline Casts 0-4 /lpf H 05/21/22 00:37 Urine Mucus Trace /hpf 05/21/22 00:37 Urine Yeast 1+ /hpf H 05/21/22 00:37 Ur Random Sodium 82 mmol/L 05/21/22 04:00 Salicylates < 0.3 mg/dL (3-10) L 05/20/22 23:44 Urine Opiates Screen Negative ng/mL (Negative) 05/21/22 00:37 Acetaminophen < 5.0 ug/mL (10-30) L 05/20/22 23:44 Ur Barbiturates Screen Negative ng/mL (Negative) 05/21/22 00:37 Lamotrigine Cancelled 05/21/22 02:04 Levetiracetam 40.5 mcg/mL (6.0-46.0) 05/21/22 05:23 Ur Phencyclidine Scrn Negative ng/mL (Negative) 05/21/22 00:37 Ur Amphetamines Screen Negative ng/mL (Negative) 05/21/22 00:37 U Benzodiazepines Scrn Positive ng/mL (Negative) H 05/21/22 00:37 Urine Cocaine Screen Negative ng/mL (Negative) 05/21/22 00:37 U Marijuana (THC) Screen Positive ng/mL (Negative) H 05/21/22 00:37 Ethyl Alcohol < 10 mg/dL (0-10) 05/20/22 23:44 Vitals Last Vital Signs Temp 97.8 F 05/24/22 03:00 Pulse 64 05/24/22 06:00 Resp 33 H 05/24/22 05:00 BP 139/90 05/24/22 05:00 Pulse Ox 94 05/24/22 05:00 Discharge Plan Discharge Patient Disposition: Left Against Medical Advice Condition: Stable Prescriptions: New levetiracetam 500 mg Tablet 500 mg PO BID 30 Days Qty: 60 0RF pantoprazole [Protonix] 40 mg tablet,delayed release (DR/EC) 40 mg PO DAILY 60 Days Qty: 60 0RF Continued lamotrigine 200 mg Tablet 200 mg PO BID 0RF Discharge Orders: Discharge Order (Routine); Ordered 05/24/22 Ordered By: Petar Bello Referrals: Stefan Enciso MD [Primary Care Provider] - Discharge Diet: Usual diet and Regular Discharge Activity: Resume usual activity and Increase activity as tolerated Patient Instructions: Pantoprazole (By mouth) (Protonix), Levetiracetam (By mouth), Opioid Safety Activity Restrictions/Additional Instructions: Please try to abstain from alcohol as much as possible. Keppra which is an antiseizure medication has been added to your medication list along with home dose of Lamictal. Take Keppra 2 times daily. Please follow-up with your primary care provider within next 1 week. Please abstain from driving for next few days. Please take at least 2 to 3 L of liquids daily. Discharge Attestations Time Spent in Discharge Care*: greater than 30 min Specific Discharge Activities: educating patient, discussing with director case management/social workers/dc planners, documenting/other paperwork and evaluating patient/reviewing data Status at Discharge: Cognitive status at discharge: mildly impaired cognition , Behavioral status at discharge: can be uncooperative , Functional status at discharge: uses cane/walker , Overall status at discharge: patient is progressing back to baseline Quality Metrics Clinical Quality Measures [ No reported AMI, CVA or VTE this stay] Coding Level of Care Code Acute Chg FW DC note Exam Comprehensive Diagnoses Status epilepticus G40.901 Hyponatremia E87.1 Troponin level elevated R77.8 Hyperglycemia R73.9 Chronic kidney disease N18.9 UTI (urinary tract infection) N39.0 Gastritis K29.70
--- NOTE | 2022-05-24 11:55 | PC.NURSE ---
Family here to transport patient home
--- NOTE | 2022-05-24 12:05 | PC.NURSE ---
Patient REJI at this time
[2022-05-24 16:06] LABS: Osmolality Urine 386 mOsm/kg (50-1200)
[2022-05-25 13:27] LABS: Lamotrigine (Lamictal) Level 6.5 mcg/mL (4.0-18.0)
== END 2022-05-24 12:05 | disposition home or self-care (01) | DRG 101 ==
LOC: ER 05-21 01:27 → ICU 05-21 01:45
PROVIDERS: Emergency Medicine; Internal Medicine; Admitting Provider Internal Medicine; Emergency Provider Emergency Medicine; PCP Internal Medicine; Visit Provider Student in an Organized Health Care Education/Training Program
DX: G40.501 Epileptic seizures related to external causes, not intractable, with status epilepticus (principal); F10.239 Alcohol dependence with withdrawal, unspecified; N17.9 Acute kidney failure, unspecified; E87.1 Hypo-osmolality and hyponatremia; N39.0 Urinary tract infection, site not specified; I24.8 Other forms of acute ischemic heart disease; M62.82 Rhabdomyolysis; K29.20 Alcoholic gastritis without bleeding; Y90.9 Presence of alcohol in blood, level not specified; N18.9 Chronic kidney disease, unspecified; F17.200 Nicotine dependence, unspecified, uncomplicated; Z87.820 Personal history of traumatic brain injury; R73.9 Hyperglycemia, unspecified; E86.0 Dehydration; Z53.29 Procedure and treatment not carried out because of patient's decision for other reasons
CPT/HCPCS: 36415; 51702; 70450; 71045; 72125; 74022; 80048; 80051; 80053; 80175; 80177; 80306; 80307; 81001; 82330; 82550; 82553; 82607; 82805; 83036; 83735; 83935; 84300; 84443; 84484; 85025; 87040; 87070; 87086; 87205; 93005; 93306; 94002; 94003; 94664; 94799; 96365; 96366; 96367; 96372; 99291; 99292; C9113; J0696; J1650; J1953; J2060; J2704; J3370; J3411; J3490; J7030

== ENCOUNTER 2022-08-26 01:53 | Emergency (ER) | payer SELFPAY ==
[2022-08-26] VITALS (7 sets, daily range): BP systolic 102–163; BP diastolic 65–114; PULSE 77–119; RESP 16–24; TEMP 36.4; O2SAT 94–99; BMI 23.5
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
--- NOTE | 2022-08-26 01:55 | ECG_ITS ---
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 Measurements Intervals [place] Rate: 98 P: 69 WA: 147 QRS: 62 QRSD: 81 T: 77 QT: 338 QTc: 433 Interpretive Statements SINUS RHYTHM LEFT ATRIAL ENLARGEMENT [-0.15mV P-WAVE IN V1/V2] Compared to ECG 05/21/2022 07:45:35 No significant changes Electronically Signed On 08-26-2022 12:51:00 CDT by Twyla Everett M.D. [email or web address]
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
[2022-08-26] MEDS: midazolam 1 mg/mL INJ 2 mL 5 MG IM (02:03)
[2022-08-26 02:10] LABS: Basophils # 0.1 10^3/uL (0.0-0.1); Basophils % 0.3 %; Eosinophils # 0.1 10^3/uL (0.0-0.8); Eosinophils % 0.4 %; Hematocrit 43.1 % (42.0-52.0); Hemoglobin 15.1 g/dL (11.7-16.6); Lymphocytes # 0.9 10^3/uL (0.8-4.8); Lymphocytes % 5.8 %; Mean Corpuscular Volume 94.1 fl (80-94); Mean Platelet Volume 9.6 fL (7.4-10.4); Monocytes # 1.2 10^3/uL (0.2-0.9); Monocytes % 7.7 %; Neutrophils # 13.29 10^3/uL (1.8-7.7); Nucleated Red Blood Cells % 0 %; Platelet Count 211 10^3/cmm (130-400); Red Blood Count 4.58 10^6/uL (4.1-5.3); Red Cell Distribution Width 13.9 % (12.1-15.1); White Blood Count 15.6 10^3/uL (4.0-10.0)
[2022-08-26 02:31] LABS: Amphetamines Screen Urine Negative (Negative); Barbiturates Screen Urine Negative (Negative); Benzodiazepines Screen Urine Negative (Negative); Cocaine Screen Urine Negative (Negative); Opiate Screen Urine Negative (Negative); PCP Screen Urine Negative (Negative); THC Screen Urine Positive (Negative)
[2022-08-26 02:43] LABS: Alanine Aminotransferase 21 U/L (0-41); Albumin Level 4.5 g/dL (3.5-5.2); Alkaline Phosphatase 108 U/L (40-130); Anion Gap 20.2 (5-19); Aspartate Amino Transferase 39 U/L (0-40); Blood Urea Nitrogen 20 mg/dL (6-20); Calcium 10.5 mg/dL (8.5-10.5); Carbon Dioxide 24 mmol/L (22-29); Chloride 93 mmol/L (98-107); Globulin 3.4 g/dL (1.3-4.6); Glomerular Filtration Rate 60.2 mL/min (90-130); Glucose 91 mg/dL (65-115); Osmolality Calculated 278 mOsm/kg (285-295); Potassium 4.2 mmol/L (3.5-5.1); Sodium 133 mmol/L (136-145); Thyroid Stimulating Hormone 2.27 uIU/mL (0.27-4.20); Total Bilirubin 0.7 mg/dL (0.15-1.2); Total Protein 7.9 g/dL (6.6-8.7)
[2022-08-26 02:45] LABS: Acetaminophen < 5.0 ug/mL (10-30); Salicylate < 0.3 mg/dL (3-10)
[2022-08-26 02:46] LABS: Alcohol Level < 10 mg/dL (0-10)
[2022-08-26 02:56] LABS: Urine Color Yellow (Yellow)
[2022-08-26 02:58] LABS: Glucose Urine UA 1+ (Normal); Ketones Urine Negative (Negative); Protein Urine 3+ (Negative); Urine Appearance SL Hazy (CLEAR); pH Urine 6 (5-7)
[2022-08-26 02:59] LABS: Add Urine Microscopic? YES; Bilirubin Urine Neg (Negative); Blood Urine 3+ (Negative); Leukocyte Esterase Urine Negative (Negative); Nitrate Urine Negative (Negative); Urobilinogen Urine Norm (Negative)
[2022-08-26 03:00] LABS: RBC Urine 40-50 /hpf (0-2); WBC Urine 0-4 /hpf (0-5)
[2022-08-26 03:01] LABS: Amorphous Sediment Urine 2+ /hpf; Bacteria Urine TRACE /hpf; Squamous Epithelial Cell Urine 0-4 /hpf (0-5)
[2022-08-26 03:02] LABS: Add Urine Culture? No; Coarse Granular Casts Urine 0-4 /lpf; Hyaline Casts Urine 0-4 /lpf
[2022-08-26] MEDS: nicotine 21 mg Patch 1 PATCH TRANSDERMA (03:23)
[2022-08-26] MEDS: lamoTRIgine 100 mg Tablet 400 MG PO (03:29)
[2022-08-26] MEDS: ziprasidone 20 mg/mL SDV IM (03:59)
[2022-08-26] MEDS: sodium chloride 0.9% 1,000 ML 999 ML IV (03:59)
== END 2022-08-26 09:02 | disposition home or self-care (01) ==
PROVIDERS: Emergency Medicine; Emergency Provider Family Medicine; PCP Internal Medicine
DX: R41.82 Altered mental status, unspecified (principal); S22.42XA Multiple fractures of ribs, left side, initial encounter for closed fracture; V86.55XA Driver of 3- or 4- wheeled all-terrain vehicle (ATV) injured in nontraffic accident, initial encounter; Z87.820 Personal history of traumatic brain injury
CPT/HCPCS: 70450; 71250; 72125; 74176; 80053; 80306; 80307; 81001; 84443; 85025; 87040; 93005; 96360; 96372; 99285; J2250; J3486; J3490; J7030

== ENCOUNTER 2022-10-06 17:54 | Emergency (ER) | payer SELFPAY ==
[2022-10-06] MEDS: midazolam 1 mg/mL INJ 2 mL 4 MG IVP (17:50)
[2022-10-06 17:51] VITALS: BP 169/119; PULSE 129; RESP 18; TEMP 36.6; O2SAT 96; BMI 18.6
--- NOTE | 2022-10-06 18:08 | ED_ITS ---
HPI - Seizure General: Chief Complaint: Seizure Stated Complaint: Seizure Time Seen by Provider: 10/06/22 18:07 Source: EMS Mode of arrival: EMS Limitations: altered mental status History of Present Illness: HPI Narrative: 42-year-old male who has a long history of seizures been seen here for seizures in the past. He had a seizure that was witnessed EMS had given him Versed along with Haldol as he was postictal and combative. He typically is quite combative when he is postictal patient was given more Versed here and is currently sedated. He had had no head injury he has no signs of injury here he is resting comfortably. Seizure History: Yes Review of Systems General: Reports: ROS unobtainable due to mental status PFS ED PFSH: Medical History Alcohol use disorder Chronic kidney disease Medical non-compliance Seizure disorder Smoking addiction Traumatic brain injury Surgical History No significant past surgical history Family History Other Unknown family medical history Social History Alcohol intake: unknown Lives independently: Yes Household members: other Details: Brother Marital status: Unknown Physical Exam Const: COMMON NORMALS: negative for patient oriented x3 HENMT: COMMON NORMALS: normocephalic and atraumatic HEAD & SCALP: normocephalic and atraumatic Eye: COMMON NORMALS: Equal, round and reactive pupils present and EOMs intact bilaterally PUPIL: Yes Equal, round and reactive pupils present Neck/C-Spine: COMMON NORMALS: full ROM and supple Chest: COMMONS NORMALS: normal inspection of the chest and normal palpation of entire chest wall Resp: COMMON NORMALS: normal respiratory effort, No retractions, No use of accessory muscles and clear to auscultation bilaterally AUSCULTATION: clear to auscultation bilaterally Cardio: COMMON NORMALS: regular rate, regular rhythm and No murmurs present (Cardio) RATE: regular rate RHYTHM: regular rhythm GI: COMMON NORMALS: Normal to inspection, nondistended, normoactive bowel sounds present, Soft to palpation, non-tender and no masses PALPATION: Yes Soft to palpation Extremity: COMMON NORMALS: normal to inspection and full ROM Neuro: COMMON NORMALS: moves all extremities and no focal motor deficits; negative for patient oriented x3 Psych: COMMON NORMALS: Normal thought process present and cooperative; negative for mental status grossly normal THOUGHT PROCESS: Normal thought process present Skin: COMMON NORMALS: no rashes or lesions noted and no wounds GENERAL SKIN EXAM: no rashes or lesions noted Course Vital Signs: Vital signs: Vital Signs Temperature 97.8 F 10/06/22 17:51 Pulse Rate 129 H 10/06/22 17:51 Respiratory Rate 18 10/06/22 17:51 Blood Pressure 169/119 10/06/22 17:51 Pulse Oximetry 96 10/06/22 17:51 Oxygen Delivery Me thod 10/06/22 17:51 MDM - Seizure MDM Narrative Medical decision making narrative: Patient presents here with a seizure he has a long history of seizures he is at his baseline here well-appearing blood work is normal he is stable for discharge he is to follow-up with PCP and return if worsening. Lab Data 10/06/22 18:25 10/06/22 18:25 Labs: Laboratory Results WBC 11.6 10^3/uL (4.0-10.0) H 10/06/22 18:25 RBC 4.83 10^6/uL (4.1-5.3) 10/06/22 18:25 Hgb 15.5 g/dL (11.7-16.6) 10/06/22 18:25 Hct 44.7 % (42.0-52.0) 10/06/22 18:25 MCV 92.5 fl (80-94) 10/06/22 18:25 MCH 32.1 pg (28.0-34.0) 10/06/22 18:25 MCHC 34.7 g/dL (30.0-36.0) 10/06/22 18:25 RDW 13.4 % (12.1-15.1) 10/06/22 18:25 Plt Count 262 10^3/cmm (130-400) 10/06/22 18:25 MPV 9.0 fL (7.4-10.4) 10/06/22 18:25 Neut % (Auto) 86.4 % 10/06/22 18:25 Lymph % (Auto) 8.1 % 10/06/22 18:25 [place] % (Auto) 4.8 % 10/06/22 18:25 Eos % (Auto) 0.0 % 10/06/22 18:25 Baso % (Auto) 0.4 % 10/06/22 18:25 Neut # (Auto) 10.04 10^3/uL (1.8-7.7) H 10/06/22 18:25 Lymph # (Auto) 0.9 10^3/uL (0.8-4.8) 10/06/22 18:25 [place] # (Auto) 0.6 10^3/uL (0.2-0.9) 10/06/22 18:25 Eos # (Auto) 0.0 10^3/uL (0.0-0.8) 10/06/22 18:25 Baso # (Auto) 0.1 10^3/uL (0.0-0.1) 10/06/22 18:25 Nucleated RBC % (auto) 0 % 10/06/22 18:25 Nucleated RBCs # 0.0 /100WBC 10/06/22 18:25 Sodium 137 mmol/L (136-145) 10/06/22 18:25 Potassium 4.3 mmol/L (3.5-5.1) 10/06/22 18:25 Chloride 98 mmol/L (98-107) 10/06/22 18:25 Carbon Dioxide 24 mmol/L (22-29) 10/06/22 18:25 Anion Gap 19.3 (5-19) H 10/06/22 18:25 BUN 16 mg/dL (6-20) 10/06/22 18:25 Creatinine 0.9 mg/dL (0.7-1.2) 10/06/22 18:25 GFR Calculation 92.1 mL/min (90-130) 10/06/22 18:25 Glucose 106 mg/dL (65-115) 10/06/22 18:25 Calculated Osmolality 286 mOsm/kg (285-295) 10/06/22 18:25 Calcium 10.1 mg/dL (8.5-10.5) 10/06/22 18:25 Magnesium 2.0 mg/dL (1.7-2.3) 10/06/22 19:08 Discharge Plan Discharge Patient Disposition: Home Clinical Impression: Generalized seizure Condition: Stable Prescriptions: No Action hydrocodone-acetaminophen 5-325 mg tablet 1 tab PO Q6H PRN (Reason: pain) Qty: 20 0RF lamotrigine 200 mg Tablet 200 mg PO BID Discharge Orders: Discharge ED (Routine); Ordered 10/06/22 Ordered By: Laisha Frias Referrals: Stefan Enciso MD [Primary Care Provider] - Discharge Diet: Advance as tolerated Discharge Activity: Resume usual activity Patient Instructions: Recurrent Seizures in Adults (ED) Coding Level of Care Code ED Synthetic Filament Spinner for Chg Fwd Exam Comprehensive
[2022-10-06 18:34] LABS: Basophils # 0.1 10^3/uL (0.0-0.1); Basophils % 0.4 %; Hematocrit 44.7 % (42.0-52.0); Hemoglobin 15.5 g/dL (11.7-16.6); Lymphocytes # 0.9 10^3/uL (0.8-4.8); Lymphocytes % 8.1 %; Mean Corpuscular HGB Conc 34.7 g/dL (30.0-36.0); Mean Corpuscular Hemoglobin 32.1 pg (28.0-34.0); Mean Corpuscular Volume 92.5 fl (80-94); Monocytes # 0.6 10^3/uL (0.2-0.9); Monocytes % 4.8 %; Neutrophils # 10.04 10^3/uL (1.8-7.7); Neutrophils % 86.4 %; Nucleated Red Blood Cells % 0 %; Platelet Count 262 10^3/cmm (130-400); Red Blood Count 4.83 10^6/uL (4.1-5.3); Red Cell Distribution Width 13.4 % (12.1-15.1); White Blood Count 11.6 10^3/uL (4.0-10.0)
--- NOTE | 2022-10-06 18:49 | PC.NURSE ---
pt resting in bed on his right side, respirations even and unlabored. Connected to VS monitor. Pt drowsy but responds to minor stimuli.
[2022-10-06 18:51] LABS: Anion Gap 19.3 (5-19); Blood Urea Nitrogen 16 mg/dL (6-20); Calcium 10.1 mg/dL (8.5-10.5); Carbon Dioxide 24 mmol/L (22-29); Chloride 98 mmol/L (98-107); Glomerular Filtration Rate 92.1 mL/min (90-130); Glucose 106 mg/dL (65-115); Osmolality Calculated 286 mOsm/kg (285-295); Potassium 4.3 mmol/L (3.5-5.1); Sodium 137 mmol/L (136-145)
[2022-10-06] MEDS: sodium chloride 0.9% 1,000 ML 999 ML IV (19:02)
--- NOTE | 2022-10-06 19:07 | ECG_ITS ---
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 Measurements Intervals [place] Rate: 113 P: 64 NM: 136 QRS: 72 QRSD: 73 T: 79 QT: 291 QTc: 399 Interpretive Statements SINUS TACHYCARDIA POSSIBLE LEFT ATRIAL ENLARGEMENT [-0.1mV P-WAVE IN V1/V2] ABNORMAL RHYTHM ECG Compared to ECG 08/26/2022 04:01:42 Sinus rhythm no longer present Electronically Signed On 10-07-2022 12:33:53 HIDE OR SKIN BUFFER by Melissa Stanton M.D. [id number]
--- NOTE | 2022-10-06 19:17 | PC.NURSE ---
Report given to PEG Fernandez to assume care
--- NOTE | 2022-10-06 19:24 | PC.NURSE ---
Entered room to find pt out of bed and sitting in chair dressed and putting his shoes on. pt stated he doesnt get paid to stay out of work and that he wants to leave. Dr. Frias notified, discharge orders being placed.
--- NOTE | 2022-10-06 19:42 | PC.NURSE ---
entered room to discharge pt. IV removed. Pt finished putting shoes on and went to stand. Pt became unsteady on his feet and appeared to almost fall. Was able to assist pt in standing and assisted pt into a chair. Pt appears to have hand tremors, pt stated it was because he is cold. Pt previously admitted to this nurse alcohol use. Denies any drug use, poor sleep, or missed medication doses. Pt agreeable to stay in ER longer. Dr Frias notified of events.
[2022-10-06 21:51] VITALS: BP 128/90; PULSE 102; RESP 16; O2SAT 94
[2022-10-06 22:34] VITALS: BP 131/84; PULSE 102; RESP 16; O2SAT 95
== END 2022-10-06 22:37 | disposition home or self-care (01) ==
PROVIDERS: Family Medicine; Emergency Provider Emergency Medicine; PCP Internal Medicine
DX: G40.409 Other generalized epilepsy and epileptic syndromes, not intractable, without status epilepticus (principal)
CPT/HCPCS: 36415; 80048; 80175; 83735; 85025; 93005; 96361; 96374; 99284; J2250; J7030

== ENCOUNTER 2023-01-07 15:08 | Emergency (ER) | payer SELFPAY ==
[2023-01-07] MEDS: midazolam 1 mg/mL INJ 2 mL 2 MG IM (15:10)
--- NOTE | 2023-01-07 15:15 | PC.NURSE ---
SEIZURE PADS APPLIED TO BED RAILS
[2023-01-07 15:17] VITALS: BP 137/84; PULSE 120; RESP 16; TEMP 37.1; O2SAT 98
--- NOTE | 2023-01-07 15:41 | PC.NURSE ---
PT ARRIVED TO ED BY EMS. EMS REPORTS PT HAS A SEIZURE HX AND WAS CALLED DUE TO A SEIZURE. EMS REPORTS PT IS VERY COMBATIVE. EMS ADMINISTERED 5MG VERSED AND 5MG HALDOL IM TO PT. PT ARRIVED TO ED IN [address] SALDANA GAVE VERBAL ORDER TO CONTINUE SOFT RESTRAINT USE. DR. SALDANA ALSO GAVE VERBAL ORDER TO ADMINISTER 2MG OF VERSED IM. MEDICATION ADMINISTERED PT CURRENTLY RESTING IN ROOM WITH EYES CLOSED. RR EQUAL AND UNLABORED AT A RATE OF 16
--- NOTE | 2023-01-07 15:48 | W.ED.SEIZURE ---
Documented by User: Mookie Eagle DO 01/10/23 07:06 HPI - Seizure General: Chief Complaint: Seizure Stated Complaint: SEIZURE/ COMBATIVE Time Seen by Provider: 01/07/23 15:09 Source: EMS Mode of arrival: EMS History of Present Illness: HPI Narrative: 43-year-old male presents to the emergency room postictal he is extremely combative. He has been here multiple times before with similar presentation is poorly compliant with his antiseizure regimen when he gets postictal he is very combative usually last for center. Time he received Versed and Haldol in route and is in four-point restraints. We have been alerted by EMS to his condition. Security and extra staff are available when he arrived. He is unable to provide any other history because of the severity of his postictal state and there is no family at the bedside. MD complaint: seizure Onset (ago): minute(s) Description of Episode: tonic-clonic movement Witnessed: Yes - by Bystander Seizure History: Yes Place: Home Review of Systems General: Reports: ROS unobtainable due to medical condition PFSH ED PFSH: Medical History Alcohol use disorder Chronic kidney disease Medical non-compliance Seizure disorder Smoking addiction Traumatic brain injury Surgical History No significant past surgical history Family History Other Unknown family medical history Social History Alcohol intake: unknown Lives independently: Yes Household members: other Details: Brother Marital status: Unknown Physical Exam HENMT: COMMON NORMALS: normocephalic, atraumatic and hearing grossly normal bilaterally HEAD & SCALP: normocephalic and atraumatic Resp: COMMON NORMALS: normal respiratory effort, No retractions, No use of accessory muscles and clear to auscultation bilaterally AUSCULTATION: clear to auscultation bilaterally Cardio: COMMON NORMALS: regular rate, regular rhythm and No murmurs present (Cardio) RATE: regular rate RHYTHM: regular rhythm GI: COMMON NORMALS: Soft to palpation and No hepatosplenomegaly present AUSCULTATION: Yes normoactive bowel sounds PALPATION: Yes Soft to palpation, No Tenderness to palpation present (GI), No Guarding due to palpation present (GI) and Yes No hepatosplenomegaly present Extremity: COMMON NORMALS: normal to inspection, capillary refill normal, no clubbing, cyanosis or edema, no calf tenderness and no pedal edema Skin: COMMON NORMALS: no rashes or lesions noted GENERAL SKIN EXAM: no rashes or lesions noted Course Vital Signs: Vital signs: Vital Signs Temperature 98.7 F 01/07/23 15:17 Pulse Rate 95 01/07/23 20:04 Respiratory Rate 20 H 01/07/23 20:04 Blood Pressure 160/103 01/07/23 20:04 Pulse Oximetry 98 01/07/23 20:04 MDM - Seizure MDM Narrative Medical decision making narrative: Care signed out to Dr. Harper at change of shift. See final notes for diagnosis and disposition. 43-year-old male checked out to me by Dr. Paul. This patient has a history of seizure disorder. He also has a history of violent behavior in the postictal phase of his seizures. This was the case this afternoon. He was given significant medication for combativeness in the postictal phase. This worked well. He has awoken from this, and is back to baseline. He wishes to go home. As this is not a new condition for the patient, he will be allowed discharge. Discharge Plan Discharge Patient Disposition: Home Clinical Impression: Generalized seizures Condition: Stable Prescriptions: No Action hydrocodone-acetaminophen 5-325 mg tablet 1 tab PO Q6H PRN (Reason: pain) Qty: 20 0RF lamotrigine 200 mg Tablet 200 mg PO BID Discharge Orders: Discharge ED (Routine); Ordered 01/07/23 Ordered By: Ron Harper Referrals: Stefan Enciso MD [Primary Care Provider] - Patient Instructions: Recurrent Seizures in Adults (ED) Activity Restrictions/Additional Instructions: Return for recurrent seizures or problems, fever, mental status changes, any other concerning symptoms. See your doctor next week. Continue your seizure medication Coding Level of Care Code ED Client Development Consultant for Chg Fwd Documented by User: Rno Harper DO 01/08/23 00:50 HPI - Seizure General: Chief Complaint: Seizure Stated Complaint: SEIZURE/ COMBATIVE Time Seen by Provider: 01/07/23 15:09 PFSH ED PFSH: Medical History Alcohol use disorder Chronic kidney disease Medical non-compliance Seizure disorder Smoking addiction Traumatic brain injury Surgical History No significant past surgical history Family History Other Unknown family medical history Social History Alcohol intake: unknown Lives independently: Yes Household members: other Details: Brother Marital status: Unknown Course Vital Signs: Vital signs: Vital Signs Temperature 98.7 F 01/07/23 15:17 Pulse Rate 95 01/07/23 20:04 Respiratory Rate 20 H 01/07/23 20:04 Blood Pressure 160/103 01/07/23 20:04 Pulse Oximetry 98 01/07/23 20:04 MDM - Seizure MDM Narrative Medical decision making narrative: 43-year-old male checked out to me by Dr. Paul. This patient has a history of seizure disorder. He also has a history of violent behavior in the postictal phase of his seizures. This was the case this afternoon. He was given significant medication for combativeness in the postictal phase. This worked well. He has awoken from this, and is back to baseline. He wishes to go home. As this is not a new condition for the patient, he will be allowed discharge. Discharge Plan Discharge Patient Disposition: Home Clinical Impression: Generalized seizures Condition: Stable Prescriptions: No Action hydrocodone-acetaminophen 5-325 mg tablet 1 tab PO Q6H PRN (Reason: pain) Qty: 20 0RF lamotrigine 200 mg Tablet 200 mg PO BID Discharge Orders: Discharge ED (Routine); Ordered 01/07/23 Ordered By: Ron Harper Referrals: Stefan Enciso MD [Primary Care Provider] - Patient Instructions: Recurrent Seizures in Adults (ED) Activity Restrictions/Additional Instructions: Return for recurrent seizures or problems, fever, mental status changes, any other concerning symptoms. See your doctor next week. Continue your seizure medication Coding Level of Care Code ED Client Development Consultant for Micheal Sprague
[2023-01-07 16:35] VITALS: BP 159/106; PULSE 99; RESP 18; O2SAT 100
[2023-01-07] MEDS: sodium chloride 0.9% 1,000 ML 999 ML IV (16:36)
--- NOTE | 2023-01-07 17:17 | PC.NURSE ---
PT ALERT AND ORIENTED TO PERSON AND PLACE. DR. SALDANA GAVE VERBAL ORDER TO DC SOFT RESTRAINTS. PT RESTING IN BED. PT DENIES PAIN OR OTHER SYMPTOMS. PT STATES HE IS TIRED AND WOULD LIKE TO REST.
[2023-01-07 17:58] VITALS: BP 161/108; PULSE 101; O2SAT 99
[2023-01-07 18:24] VITALS: PULSE 105; RESP 18; O2SAT 97
[2023-01-07 20:00] VITALS: BP 170/107; PULSE 82; O2SAT 96
[2023-01-07 20:04] VITALS: BP 160/103; PULSE 95; RESP 20; O2SAT 98
== END 2023-01-07 21:03 | disposition home or self-care (01) ==
PROVIDERS: Emergency Provider Emergency Medicine; PCP Internal Medicine
DX: G40.409 Other generalized epilepsy and epileptic syndromes, not intractable, without status epilepticus (principal); N18.9 Chronic kidney disease, unspecified; Z87.820 Personal history of traumatic brain injury
CPT/HCPCS: 96372; 99284; J2250; J7030

== ENCOUNTER 2023-06-29 11:19 | Emergency (ER) | payer SELFPAY ==
[2023-06-29 11:25] VITALS: BMI 24.3
[2023-06-29 11:27] VITALS: BP 157/106; PULSE 80; RESP 16; TEMP 37.1; O2SAT 97
--- NOTE | 2023-06-29 12:37 | ED_ITS ---
HPI - Seizure General: Chief Complaint: Seizure Stated Complaint: Seizure Time Seen by Provider: 06/29/23 12:21 Source: patient and EMS Mode of arrival: EMS Limitations: no limitations History of Present Illness: HPI Narrative: Patient is a 43-year-old male with a longstanding history of epilepsy here following a seizure-like episode earlier today. Patient states that seizure was witnessed by family members who thus called EMS. He states he has a history of generalized tonic-clonic seizures. He is treated with lamotrigine 100 mg twice daily. Patient states his last seizure was several months ago. Patient states he is not sure if he has ever seen a neurologist for his seizures stating that his primary care provider normally just refills his medications. Patient has not had any recent medication changes or missed doses. No recent illness. Patient denies any injury sustained during the seizure earlier today. MD complaint: seizure Onset (ago): hour(s) Description of Episode: tonic-clonic movement -: second(s) Witnessed: Yes - by Bystander Trauma: No Seizure History: Yes Place: Home Possible Precipitating Event: none Associated symptoms: Reports no associated symptoms; Deny chest pain, chills, confusion, fever(s), malaise or syncope Treatments prior to arrival: other (versed) Review of Systems Const: Denies: fever(s), chills, body aches, fatigue or malaise Eyes: Denies: change in vision or blurry vision Card: Denies: chest pain, palpitations, irregular heart rhythm, edema, lightheadedness, syncope or pre-syncope Resp: Denies: dyspnea GI: Denies: abdominal pain, nausea, vomiting or diarrhea : Denies: flank pain or dysuria Musc: Denies: neck pain, back pain, extremity pain, extremity swelling or joint pain Skin/Breast: Denies: rash Neuro: Reports: seizure-like activity; Denies: headache(s), numbness in extremities, weakness in extremities, sensory changes, lack of coordination, difficulty walking, dizziness, vertigo, c onfusion, behavioral changes or difficulty communicating thoughts PFSH ED PFSH: Medical History Alcohol use disorder Chronic kidney disease Medical non-compliance Seizure disorder Smoking addiction Traumatic brain injury Surgical History No significant past surgical history Family History Other Unknown family medical history Social History Alcohol intake: unknown Substance/Drug Use: unknown Lives independently: Yes Household members: other Details: Brother Marital status: Unknown Physical Exam Const: COMMON NORMALS: no acute distress, average body habitus, patient o riented x3, no limitations, healthy appearing, alert and well nourished GENERAL APPEARANCE: cooperative ORIENTATION/CONSCIOUSNESS: Yes awake, Yes oriented to person, Yes oriented to place and Yes oriented to time OTHER: Patient is sleeping at time of my initial examination. He awakens easily and does not seem to be postictal. He is pleasant and answering all questions appropriately. HENMT: COMMON NORMALS: normocephalic and atraumatic HEAD & SCALP: normal to inspection, normocephalic and atraumatic FACE & SINUS: normal facial exam Eye: GENERAL EYE: appearance normal, both eyes and all related structures and normal light reflex DIRECT OPHTHALMOSCOPY: Yes normal light reflex Neck/C-Spine: COMMON NORMALS: full ROM GENERAL: Yes normal visual inspection CERVICAL SPINE: No Cervical spine tenderness Resp: COMMON NORMALS: normal respiratory effort and clear to auscultation bilaterally AUSCULTATION: clear to auscultation bilaterally Cardio: COMMON NORMALS: regular rate and regular rhythm RATE: regular rate RHYTHM: regular rhythm Back/Pelvis: COMMON NORMALS: thoracic and lumbar spine normal to inspection, no thoracic nor lumbar tenderness and thoraco-lumbar ROM normal Extremity: COMMON NORMALS: normal to inspection GENERAL: Yes normal exam except as noted Neuro: PEG COMA SCALE: document GCS findings Peg coma scale eye opening: Spontaneous Peg coma scale verbal response: Orientated [place] coma scale motor response: Obey commands [place] coma scale total score: 15 COMMON NORMALS: patient oriented x3 SENSORIUM/ORIENTATION: Yes alert, Yes oriented to person, Yes oriented to place and Yes oriented to time Skin: COMMON NORMALS: no rashes or lesions noted GENERAL SKIN EXAM: no rashes or lesions noted Course Vital Signs: Vital signs: Vital Signs Temperature 98.7 F 06/29/23 11:27 Pulse Rate 80 06/29/23 11:27 Respiratory Rate 16 06/29/23 12:53 Blood Pressure 163/102 06/29/23 12:53 Pulse Oximetry 99 06/29/23 12:53 Oxygen Delivery Me thod Room Air 06/29/23 12:53 MDM - Seizure MDM Narrative Medical decision making narrative: Patient is a 43-year-old male with a history of epilepsy here after a seizure earlier this morning. He has not had any further seizure-like activity. Patient states he does not believe he has ever seen a neurologist for his seizures as his Lamictal has always just been refilled by his primary care provider. He was offered referral to see a neurologist however he declines. Looks like he is on the maximum dose of Lamictal so I will not change this. We discussed potentially adding another antiepileptic medication but he declines and would like to stay on his current dose/medication regimen. Return ED precautions given. Lab Data 06/29/23 12:51 06/29/23 12:51 Labs: Laboratory Results WBC 12.6 10^3/uL (4.0-10.0) H 06/29/23 12:51 RBC 4.87 10^6/uL (4.1-5.3) 06/29/23 12:51 Hgb 16.3 g/dL (11.7-16.6) 06/29/23 12:51 Hct 46.9 % (42.0-52.0) 06/29/23 12:51 MCV 96.3 fl (80-94) H 06/29/23 12:51 MCH 33.5 pg (28.0-34.0) 06/29/23 12:51 MCHC 34.8 g/dL (30.0-36.0) 06/29/23 12:51 RDW 12.8 % (12.1-15.1) 06/29/23 12:51 Plt Count 250 10^3/cmm (130-400) 06/29/23 12:51 MPV 9.0 fL (7.4-10.4) 06/29/23 12:51 Neut % (Auto) 86.1 % 06/29/23 12:51 Lymph % (Auto) 7.0 % 06/29/23 12:51 Schleicher % (Auto) 5.7 % 06/29/23 12:51 Eos % (Auto) 0.3 % 06/29/23 12:51 Baso % (Auto) 0.3 % 06/29/23 12:51 Neut # (Auto) 10.89 10^3/uL (1.8-7.7) H 06/29/23 12:51 Lymph # (Auto) 0.9 10^3/uL (0.8-4.8) 06/29/23 12:51 Schleicher # (Auto) 0.7 10^3/uL (0.2-0.9) 06/29/23 12:51 Eos # (Auto) 0.0 10^3/uL (0.0-0.8) 06/29/23 12:51 Baso # (Auto) 0.0 10^3/uL (0.0-0.1) 06/29/23 12:51 Nucleated RBC % (auto) 0 % 06/29/23 12:51 Nucleated RBCs # 0.0 /100WBC 06/29/23 12:51 Sodium 133 mmol/L (136-145) L 06/29/23 12:51 Potassium 4.4 mmol/L (3.5-5.1) 06/29/23 12:51 Chloride 89 mmol/L (98-107) L 06/29/23 12:51 Carbon Dioxide 31 mmol/L (22-29) H 06/29/23 12:51 Anion Gap 17.4 (5-19) 06/29/23 12:51 BUN 26 mg/dL (6-20) H 06/29/23 12:51 Creatinine 1.4 mg/dL (0.7-1.2) H 06/29/23 12:51 GFR Calculation 55.1 mL/min (90-130) L 06/29/23 12:51 Glucose 109 mg/dL (65-115) 06/29/23 12:51 Calculated Osmolality 281 mOsm/kg (285-295) L 06/29/23 12:51 Calcium 10.2 mg/dL (8.5-10.5) 06/29/23 12:51 Total Bilirubin 0.6 mg/dL (0.15-1.2) 06/29/23 12:51 AST 34 U/L (0-40) 06/29/23 12:51 ALT 25 U/L (0-41) 06/29/23 12:51 Alkaline Phosphatase 167 U/L (40-130) H 06/29/23 12:51 Total Protein 7.8 g/dL (6.6-8.7) 06/29/23 12:51 Albumin 4.8 g/dL (3.5-5.2) 06/29/23 12:51 Globulin 3.0 g/dL (1.3-4.6) 06/29/23 12:51 Discharge Plan Discharge Patient Disposition: Home Clinical Impression: Seizure Condition: Stable Prescriptions: No Action lamotrigine 200 mg Tablet 200 mg PO BID Discharge Orders: Discharge ED (Routine); Ordered 06/29/23 Ordered By: Tiesha Garcia Referrals: Stefan Enciso MD [Hospitalist] - Patient Instructions: Epilepsy (DC) Activity Restrictions/Additional Instructions: As we discussed please follow-up with your primary care provider for further evaluation. We have offered you neurology follow-up you have declined stating you would prefer to follow-up with her. You need to return to the emergency department for any further seizure-like activity. Coding Level of Care Code ED Timber Bucker for Micheal Sprague
[2023-06-29 12:53] VITALS: BP 163/102; RESP 16; O2SAT 99
[2023-06-29 13:12] LABS: Basophils % 0.3 %; Eosinophils % 0.3 %; Hematocrit 46.9 % (42.0-52.0); Hemoglobin 16.3 g/dL (11.7-16.6); Lymphocytes # 0.9 10^3/uL (0.8-4.8); Mean Corpuscular HGB Conc 34.8 g/dL (30.0-36.0); Mean Corpuscular Hemoglobin 33.5 pg (28.0-34.0); Mean Corpuscular Volume 96.3 fl (80-94); Monocytes # 0.7 10^3/uL (0.2-0.9); Monocytes % 5.7 %; Neutrophils # 10.89 10^3/uL (1.8-7.7); Neutrophils % 86.1 %; Nucleated Red Blood Cells % 0 %; Platelet Count 250 10^3/cmm (130-400); Red Blood Count 4.87 10^6/uL (4.1-5.3); Red Cell Distribution Width 12.8 % (12.1-15.1); White Blood Count 12.6 10^3/uL (4.0-10.0)
[2023-06-29 13:32] LABS: Alanine Aminotransferase 25 U/L (0-41); Albumin Level 4.8 g/dL (3.5-5.2); Alkaline Phosphatase 167 U/L (40-130); Anion Gap 17.4 (5-19); Aspartate Amino Transferase 34 U/L (0-40); Blood Urea Nitrogen 26 mg/dL (6-20); Calcium 10.2 mg/dL (8.5-10.5); Carbon Dioxide 31 mmol/L (22-29); Chloride 89 mmol/L (98-107); Glomerular Filtration Rate 55.1 mL/min (90-130); Glucose 109 mg/dL (65-115); Osmolality Calculated 281 mOsm/kg (285-295); Potassium 4.4 mmol/L (3.5-5.1); Sodium 133 mmol/L (136-145); Total Bilirubin 0.6 mg/dL (0.15-1.2); Total Protein 7.8 g/dL (6.6-8.7)
[2023-06-29] MEDS: sodium chloride 0.9% 1,000 ML 999 ML IV (14:14)
[2023-07-06 07:39] LABS: Lamotrigine (Lamictal) Level 10.5 mcg/mL (2.5-15.0)
== END 2023-06-29 15:23 | disposition home or self-care (01) ==
PROVIDERS: Emergency Provider Physician Assistant; PCP Nurse Practitioner Family
DX: G40.909 Epilepsy, unspecified, not intractable, without status epilepticus (principal)
CPT/HCPCS: 36415; 80053; 80175; 85025; 99284; J7030

== ENCOUNTER 2023-08-26 05:56 | Emergency (ER) | payer SELFPAY ==
[2023-08-26 05:56] VITALS: BP 141/103; PULSE 115; RESP 20; TEMP 36.6; O2SAT 88; BMI 21.1
--- NOTE | 2023-08-26 06:06 | ECG_ITS ---
[facility] Test Date: 2023-08-26 Pat Name: Tony Galo Department: Room: Gender: [facility] Director: : 1980 Requested By: Eagle Brice Order Number: [id number] Carson MD: Twyla Everett M.D. Measurements Intervals [place] Rate: 118 P: 67 MA: 156 QRS: 49 QRSD: 80 T: 73 QT: 298 QTc: 418 Interpretive Statements SINUS TACHYCARDIA POSSIBLE LEFT ATRIAL ENLARGEMENT [-0.1mV P-WAVE IN V1/V2] ABNORMAL RHYTHM ECG Compared to ECG 10/06/2022 19:07:47 No significant changes Electronically Signed On 08-26-2023 14:50:40 CDT by Twyla Everett M.D. [id number]
--- NOTE | 2023-08-26 06:06 | XRR_ITS ---
PROCEDURE INFORMATION: Exam: XR Chest Exam date and time: 08/26/2023 6:21 AM Age: 43 years old Clinical indication: Dyspnea; Additional info: Seizure TECHNIQUE: Imaging protocol: Radiologic exam of the chest. Views: 1 view. COMPARISON: [place] [id number] 08/26/2022 2:40 AM 2. CR (CHEST, ) 05/22/2022 5:31 AM 3. CR (CHEST, ) 05/20/2022 10:17 PM FINDINGS: Lungs: Unremarkable. No consolidation. Pleural spaces: No pleural effusion or pneumothorax. Heart/Mediastinum: Unremarkable. No cardiomegaly. Bones/joints: Old healed fracture deformities of the right clavicle and multiple right ribs. XR/XR chest 1V portable [id number] IMPRESSION: No acute findings.
--- NOTE | 2023-08-26 06:11 | ED_ITS ---
Documented by User: Eagle Brice DO 08/26/23 07:36 HPI - Seizure General: Chief Complaint: Seizure Stated Complaint: seizure Time Seen by Provider: 08/26/23 06:01 History of Present Illness: HPI Narrative: Patient presents to the ER by EMS with complaints of seizure. EMS said the family reported seizure lasted 45 minutes. When EMS got there is being very combative during his postictal state and I given him a total of 5 mg of Versed and [address] the way in. EMS was escorted by [facility]'s department and patient was placed in four-point restraints and ambulance. Her seizures and is on Lamictal. Patient very sedate but combative and postictal upon arrival. Seizure History: Yes Review of Systems General: Reports: ROS unobtainable due to medical condition [facility] ED PFSH: Medical History Alcohol use disorder Chronic kidney disease Medical non-compliance Seizure disorder Smoking addiction Traumatic brain injury Surgical History No significant past surgical history Family History Other Unknown family medical history Social History Alcohol intake: unknown Substance/Drug Use: unknown Lives independently: Yes Household members: other Details: Brother Marital status: Unknown Physical Exam Const: COMMON NORMALS: no acute distress, average body habitus, healthy marleny earing and well nourished; limitations ( Sedated and postictal) HENMT: COMMON NORMALS: normocephalic, atraumatic, hearing grossly normal bilaterally, external ears normal, Normal external nose present, moist oral mucous membranes and oropharynx normal HEAD & SCALP: normocephalic and atraumatic NOSE: Normal external nose present EXTERNAL EAR: Yes external ears normal Eye: COMMON NORMALS: Equal, round and reactive pupils present and no scleral icterus PUPIL: Yes Equal, round and reactive pupils present Neck/C-Spine: COMMON NORMALS: no JVD Chest: COMMONS NORMALS: normal inspection of the chest and normal palpation of entire chest wall Resp: COMMON NORMALS: normal respiratory effort, No retractions, No use of accessory muscles and clear to auscultation bilaterally AUSCULTATION: clear to auscultation bilaterally Cardio: COMMON NORMALS: no JVD, regular rhythm, S1 normal heart sound present, S2 normal heart sound present, No gallops present (Cardio), No clicks present (Cardio), No murmurs present (Cardio) and No rub (Cardio); negative for regular rate ( tachycardic) RATE: abnormal rate ( tachycardic) RHYTHM: regular rhythm HEART SOUNDS: S1 normal heart sound present and S2 normal heart sound present GI: COMMON NORMALS: Normal to inspection, nondistended, normoactive bowel sounds present, Soft to palpation, non-tender, No hepatosplenomegaly present and no masses PALPATION: Yes Soft to palpation and Yes No hepatosplenomegaly present Course Vital Signs: Vital signs: Vital Signs Temperature 98 F 08/26/23 05:56 Pulse Rate 79 08/26/23 09:30 Respiratory Rate 18 08/26/23 09:30 Blood Pressure 180/133 08/26/23 08:10 Pulse Oximetry 99 08/26/23 09:30 Oxygen Delivery Me thod Room Air 08/26/23 09:30 MDM - Seizure Differential Diagnosis Seizure Differential Diagnosis: Likely epileptic seizure; Unlikely intractable seizure disorder, febrile convulsion, focal seizure, generalized seizure, new onset seizure or status epilepticus Medical Records Attestation: I reviewed the patient's medical records. Lab Data Attestation: I reviewed the patient's lab results. 08/26/23 06:16 08/26/23 06:16 Labs: Radiology Impressions Chest X-Ray 08/26/23 06:06 IMPRESSION: No acute findings. Laboratory Results WBC 9.74 10^3/uL (3.29-11.43) 08/26/23 06:16 RBC 4.61 10^6/uL (3.85-5.65) 08/26/23 06:16 Hgb 14.90 g/dL (11.27-16.99) 08/26/23 06:16 Hct 44.6 % (37-53) 08/26/23 06:16 MCV 96.7 fl (82-101) 08/26/23 06:16 MCH 32.3 pg (27-33) 08/26/23 06:16 MCHC 33.4 g/dL (30-55) 08/26/23 06:16 RDW 13.1 % (12.1-15.1) 08/26/23 06:16 Plt Count 227 10^3/cmm (157-399) 08/26/23 06:16 MPV 8.9 fL (7.4-10.4) 08/26/23 06:16 Neut % (Auto) 72.4 % 08/26/23 06:16 Lymph % (Auto) 18.1 % 08/26/23 06:16 Blaine % (Auto) 5.6 % 08/26/23 06:16 Eos % (Auto) 2.7 % 08/26/23 06:16 Baso % (Auto) 0.8 % 08/26/23 06:16 Neut # (Auto) 7.05 10^3/uL (1.8-7.7) 08/26/23 06:16 Lymph # (Auto) 1.8 10^3/uL (0.8-4.8) 08/26/23 06:16 Blaine # (Auto) 0.6 10^3/uL (0.2-0.9) 08/26/23 06:16 Eos # (Auto) 0.3 10^3/uL (0.0-0.8) 08/26/23 06:16 Baso # (Auto) 0.1 10^3/uL (0.0-0.1) 08/26/23 06:16 Nucleated RBC % (auto) 0 % 08/26/23 06:16 Nucleated RBCs # 0.0 /100WBC 08/26/23 06:16 Sodium 140 mmol/L (136-145) 08/26/23 06:16 Potassium 4.4 mmol/L (3.5-5.1) 08/26/23 06:16 Chloride 101 mmol/L (98-107) 08/26/23 06:16 Carbon Dioxide 20 mmol/L (22-29) L 08/26/23 06:16 Anion Gap 23.4 (5-19) H 08/26/23 06:16 BUN 13 mg/dL (6-20) 08/26/23 06:16 Creatinine 1.0 mg/dL (0.7-1.2) 08/26/23 06:16 GFR Calculation 81.2 mL/min (90-130) L 08/26/23 06:16 Glucose 75 mg/dL (65-115) 08/26/23 06:16 Calculated Osmolality 289 mOsm/kg (285-295) 08/26/23 06:16 Calcium 9.4 mg/dL (8.5-10.5) 08/26/23 06:16 Magnesium 2.0 mg/dL (1.7-2.3) 08/26/23 06:16 Total Bilirubin 0.2 mg/dL (0.15-1.2) 08/26/23 06:16 AST 25 U/L (0-40) 08/26/23 06:16 ALT 17 U/L (0-41) 08/26/23 06:16 Alkaline Phosphatase 125 U/L (40-130) 08/26/23 06:16 Total Protein 7.2 g/dL (6.6-8.7) 08/26/23 06:16 Albumin 4.5 g/dL (3.5-5.2) 08/26/23 06:16 Globulin 2.7 g/dL (1.3-4.6) 08/26/23 06:16 Prolactin 28.16 ng/mL (4.0-15.2) H 08/26/23 06:16 Urine Color Yellow (Yellow) 08/26/23 06:35 Urine Appearance Clear (CLEAR) 08/26/23 06:35 Urine pH 5 (5-7) 08/26/23 06:35 Ur Specific [place] 1.025 (1.005-1.030) 08/26/23 06:35 Urine Protein 1+ (Negative) H 08/26/23 06:35 Urine Glucose (UA) Norm (Normal) 08/26/23 06:35 Urine Ketones 1+ (Negative) H 08/26/23 06:35 Urine Blood 2+ (Negative) H 08/26/23 06:35 Urine Nitrate Negative (Negative) 08/26/23 06:35 Urine Bilirubin Neg (Negative) 08/26/23 06:35 Urine Urobilinogen Norm mg/dL (Negative) 08/26/23 06:35 Ur Leukocyte Esterase Negative (Negative) 08/26/23 06:35 Urine RBC 0-4 /hpf (0-2) H 08/26/23 06:35 Urine WBC 0-4 /hpf (0-5) H 08/26/23 06:35 Ur Squamous Epith Cells 0-4 /hpf (0-5) H 08/26/23 06:35 Amorphous Sediment 4+ /hpf 08/26/23 06:35 Urine Bacteria Trace /hpf (NONE) 08/26/23 06:35 Urine Opiates Screen Negative ng/mL (Negative) 08/26/23 06:35 Ur Barbiturates Screen Negative ng/mL (Negative) 08/26/23 06:35 Ur Phencyclidine Scrn Negative ng/mL (Negative) 08/26/23 06:35 Ur Amphetamines Screen Negative ng/mL (Negative) 08/26/23 06:35 U Benzodiazepines Scrn Positive ng/mL (Negative) H 08/26/23 06:35 Urine Cocaine Screen Negative ng/mL (Negative) 08/26/23 06:35 U Marijuana (THC) Screen Positive ng/mL (Negative) H 08/26/23 06:35 All radiology interpretation(s) finalized by discharge EKG Data EKG 1: Attestation: I personally reviewed and interpreted this EKG as follows: EKG interpretation date: 08/26/23 EKG interpretation time: 05:58 Prior EKG tracings: not available for review Interpretation: EKG showed ventricular rate 118 bpm, IL interval 156, QRS duration 80, QTc 368, sinus tachycardia Discharge Plan Discharge Patient Disposition: Home Clinical Impression: Generalized seizure Condition: Stable Prescriptions: No Action lamotrigine 200 mg Tablet 200 mg PO BID Discharge Orders: Discharge ED (Routine); Ordered 08/26/23 Ordered By: Mookie Eagle Referrals: Mills,ENID ZelayaP [Primary Care Provider] - Discharge Diet: Usual diet Discharge Activity: Resume usual activity Patient Instructions: Opioid Safety, Pain Management Activity Restrictions/Additional Instructions: New current medications follow-up with your neurologist as soon as you are able contact him for further advice. Sign Out Sign Out Data: Patient Sign Out occurred on 08/26/23 at 08:12. Patient's care was discussed, and care was transferred from to Mookie Eagle DO. Coding Level of Care Code ED Machine Filler Shredder for Chg Fwd Documented by User: Mookie Eagle DO 08/26/23 11:00 HPI - Seizure General: Chief Complaint: Seizure Stated Complaint: seizure Time Seen by Provider: 08/26/23 06:01 PFSH ED PFSH: Medical History Alcohol use disorder Chronic kidney disease Medical non-compliance Seizure disorder Smoking addiction Traumatic brain injury Surgical History No significant past surgical history Family History Other Unknown family medical history Social History Alcohol intake: unknown Substance/Drug Use: unknown Lives independently: Yes Household members: other Details: Brother Marital status: Unknown Course Vital Signs: Vital signs: Vital Signs Temperature 98 F 08/26/23 05:56 Pulse Rate 79 08/26/23 09:30 Respiratory Rate 18 08/26/23 09:30 Blood Pressure 180/133 08/26/23 08:10 Pulse Oximetry 99 08/26/23 09:30 Oxygen Delivery Me thod Room Air 08/26/23 09:30 MDM - Seizure MDM Narrative Medical decision making narrative: 43 Antoin[place] known history of seizure disorder he is improved he is back to his baseline is ambulating no difficulty denies any missed medication doses or change in dose recently. Patient does have frequent breakthrough seizures and was positive for marijuana discussed symptoms can lower seizure threshold. Discharge home no change in meds follow-up with his primary neurologist as soon as he is able by phone return if he has recurrent episodes. Lab Data 08/26/23 06:16 08/26/23 06:16 Labs: Radiology Impressions Chest X-Ray 08/26/23 06:06 IMPRESSION: No acute findings. Laboratory Results WBC 9.74 10^3/uL (3.29-11.43) 08/26/23 06:16 RBC 4.61 10^6/uL (3.85-5.65) 08/26/23 06:16 Hgb 14.90 g/dL (11.27-16.99) 08/26/23 06:16 Hct 44.6 % (37-53) 08/26/23 06:16 MCV 96.7 fl (82-101) 08/26/23 06:16 MCH 32.3 pg (27-33) 08/26/23 06:16 MCHC 33.4 g/dL (30-55) 08/26/23 06:16 RDW 13.1 % (12.1-15.1) 08/26/23 06:16 Plt Count 227 10^3/cmm (157-399) 08/26/23 06:16 MPV 8.9 fL (7.4-10.4) 08/26/23 06:16 Neut % (Auto) 72.4 % 08/26/23 06:16 Lymph % (Auto) 18.1 % 08/26/23 06:16 Blaine % (Auto) 5.6 % 08/26/23 06:16 Eos % (Auto) 2.7 % 08/26/23 06:16 Baso % (Auto) 0.8 % 08/26/23 06:16 Neut # (Auto) 7.05 10^3/uL (1.8-7.7) 08/26/23 06:16 Lymph # (Auto) 1.8 10^3/uL (0.8-4.8) 08/26/23 06:16 Blaine # (Auto) 0.6 10^3/uL (0.2-0.9) 08/26/23 06:16 Eos # (Auto) 0.3 10^3/uL (0.0-0.8) 08/26/23 06:16 Baso # (Auto) 0.1 10^3/uL (0.0-0.1) 08/26/23 06:16 Nucleated RBC % (auto) 0 % 08/26/23 06:16 Nucleated RBCs # 0.0 /100WBC 08/26/23 06:16 Sodium 140 mmol/L (136-145) 08/26/23 06:16 Potassium 4.4 mmol/L (3.5-5.1) 08/26/23 06:16 Chloride 101 mmol/L (98-107) 08/26/23 06:16 Carbon Dioxide 20 mmol/L (22-29) L 08/26/23 06:16 Anion Gap 23.4 (5-19) H 08/26/23 06:16 BUN 13 mg/dL (6-20) 08/26/23 06:16 Creatinine 1.0 mg/dL (0.7-1.2) 08/26/23 06:16 GFR Calculation 81.2 mL/min (90-130) L 08/26/23 06:16 Glucose 75 mg/dL (65-115) 08/26/23 06:16 Calculated Osmolality 289 mOsm/kg (285-295) 08/26/23 06:16 Calcium 9.4 mg/dL (8.5-10.5) 08/26/23 06:16 Magnesium 2.0 mg/dL (1.7-2.3) 08/26/23 06:16 Total Bilirubin 0.2 mg/dL (0.15-1.2) 08/26/23 06:16 AST 25 U/L (0-40) 08/26/23 06:16 ALT 17 U/L (0-41) 08/26/23 06:16 Alkaline Phosphatase 125 U/L (40-130) 08/26/23 06:16 Total Protein 7.2 g/dL (6.6-8.7) 08/26/23 06:16 Albumin 4.5 g/dL (3.5-5.2) 08/26/23 06:16 Globulin 2.7 g/dL (1.3-4.6) 08/26/23 06:16 Prolactin 28.16 ng/mL (4.0-15.2) H 08/26/23 06:16 Urine Color Yellow (Yellow) 08/26/23 06:35 Urine Appearance Clear (CLEAR) 08/26/23 06:35 Urine pH 5 (5-7) 08/26/23 06:35 Ur Specific [place] 1.025 (1.005-1.030) 08/26/23 06:35 Urine Protein 1+ (Negative) H 08/26/23 06:35 Urine Glucose (UA) Norm (Normal) 08/26/23 06:35 Urine Ketones 1+ (Negative) H 08/26/23 06:35 Urine Blood 2+ (Negative) H 08/26/23 06:35 Urine Nitrate Negative (Negative) 08/26/23 06:35 Urine Bilirubin Neg (Negative) 08/26/23 06:35 Urine Urobilinogen Norm mg/dL (Negative) 08/26/23 06:35 Ur Leukocyte Esterase Negative (Negative) 08/26/23 06:35 Urine RBC 0-4 /hpf (0-2) H 08/26/23 06:35 Urine WBC 0-4 /hpf (0-5) H 08/26/23 06:35 Ur Squamous Epith Cells 0-4 /hpf (0-5) H 08/26/23 06:35 Amorphous Sediment 4+ /hpf 08/26/23 06:35 Urine Bacteria Trace /hpf (NONE) 08/26/23 06:35 Urine Opiates Screen Negative ng/mL (Negative) 08/26/23 06:35 Ur Barbiturates Screen Negative ng/mL (Negative) 08/26/23 06:35 Ur Phencyclidine Scrn Negative ng/mL (Negative) 08/26/23 06:35 Ur Amphetamines Screen Negative ng/mL (Negative) 08/26/23 06:35 U Benzodiazepines Scrn Positive ng/mL (Negative) H 08/26/23 06:35 Urine Cocaine Screen Negative ng/mL (Negative) 08/26/23 06:35 U Marijuana (THC) Screen Positive ng/mL (Negative) H 08/26/23 06:35 Discharge Plan Discharge Patient Disposition: Home Clinical Impression: Generalized seizure Condition: Stable Prescriptions: No Action lamotrigine 200 mg Tablet 200 mg PO BID Discharge Orders: Discharge ED (Routine); Ordered 08/26/23 Ordered By: Mookie Eagle Referrals: Mills,ENID ZelayaP [Primary Care Provider] - Discharge Diet: Usual diet Discharge Activity: Resume usual activity Patient Instructions: Opioid Safety, Pain Management Activity Restrictions/Additional Instructions: New current medications follow-up with your neurologist as soon as you are able contact him for further advice. Sign Out Sign Out Data: Patient Sign Out occurred on 08/26/23 at 08:12. Patient's care was discussed, and care was transferred from to Mookie Eagle DO. Coding Level of Care Code ED Machine Filler Shredder for Micheal Sprague
[2023-08-26 06:21] LABS: Basophils # 0.1 10^3/uL (0.0-0.1); Basophils % 0.8 %; Eosinophils # 0.3 10^3/uL (0.0-0.8); Eosinophils % 2.7 %; Hematocrit 44.6 % (37-53); Lymphocytes # 1.8 10^3/uL (0.8-4.8); Lymphocytes % 18.1 %; Mean Corpuscular HGB Conc 33.4 g/dL (30-55); Mean Corpuscular Hemoglobin 32.3 pg (27-33); Mean Corpuscular Volume 96.7 fl (82-101); Mean Platelet Volume 8.9 fL (7.4-10.4); Monocytes # 0.6 10^3/uL (0.2-0.9); Monocytes % 5.6 %; Neutrophils # 7.05 10^3/uL (1.8-7.7); Neutrophils % 72.4 %; Nucleated Red Blood Cells % 0 %; Platelet Count 227 10^3/cmm (157-399); Red Blood Count 4.61 10^6/uL (3.85-5.65); Red Cell Distribution Width 13.1 % (12.1-15.1); White Blood Count 9.74 10^3/uL (3.29-11.43)
[2023-08-26] MEDS: LORazepam 2 mg/mL INJ 1 mL IVP (06:27)
[2023-08-26] MEDS: sodium chloride 0.9% 1,000 ML 999 ML IV (06:27)
[2023-08-26 06:44] LABS: Alanine Aminotransferase 17 U/L (0-41); Albumin Level 4.5 g/dL (3.5-5.2); Alkaline Phosphatase 125 U/L (40-130); Anion Gap 23.4 (5-19); Aspartate Amino Transferase 25 U/L (0-40); Blood Urea Nitrogen 13 mg/dL (6-20); Calcium 9.4 mg/dL (8.5-10.5); Carbon Dioxide 20 mmol/L (22-29); Chloride 101 mmol/L (98-107); Globulin 2.7 g/dL (1.3-4.6); Glomerular Filtration Rate 81.2 mL/min (90-130); Glucose 75 mg/dL (65-115); Osmolality Calculated 289 mOsm/kg (285-295); Potassium 4.4 mmol/L (3.5-5.1); Sodium 140 mmol/L (136-145); Total Bilirubin 0.2 mg/dL (0.15-1.2); Total Protein 7.2 g/dL (6.6-8.7)
[2023-08-26 06:53] LABS: Urine Color Yellow (Yellow)
[2023-08-26 06:54] LABS: Add Urine Culture? No; Add Urine Microscopic? YES; Amorphous Sediment Urine 4+ /hpf; Bacteria Urine TRACE /hpf; Bilirubin Urine Neg (Negative); Blood Urine 2+ (Negative); Glucose Urine UA Norm (Normal); Ketones Urine 1+ (Negative); Leukocyte Esterase Urine Negative (Negative); Nitrate Urine Negative (Negative); Protein Urine 1+ (Negative); RBC Urine 0-4 /hpf (0-2); Specific Gravity, Urine 1.025 (1.005-1.030); Squamous Epithelial Cell Urine 0-4 /hpf (0-5); Urine Appearance Clear (CLEAR); Urobilinogen Urine Norm (Negative); WBC Urine 0-4 /hpf (0-5); pH Urine 5 (5-7)
[2023-08-26 06:55] LABS: Amphetamines Screen Urine Negative (Negative); Barbiturates Screen Urine Negative (Negative); Benzodiazepines Screen Urine Positive (Negative); Cocaine Screen Urine Negative (Negative); Opiate Screen Urine Negative (Negative); PCP Screen Urine Negative (Negative); THC Screen Urine Positive (Negative)
[2023-08-26 07:01] VITALS: BP 150/108; PULSE 110; RESP 18; O2SAT 99
--- NOTE | 2023-08-26 07:11 | PC.PHAR ---
unable to verify medications with pt-medication entered is from what ext med history shows has been filled recently
[2023-08-26 07:19] LABS: Prolactin 28.16 ng/mL (4.0-15.2)
[2023-08-26 07:25] VITALS: BP 150/108; PULSE 110; RESP 18; O2SAT 100
[2023-08-26 07:32] VITALS: BP 151/105; PULSE 110; RESP 18; O2SAT 100
[2023-08-26 08:10] VITALS: BP 180/133; PULSE 102; RESP 18; O2SAT 98
[2023-08-26 09:30] VITALS: PULSE 79; RESP 18; O2SAT 99
[2023-09-01 08:25] LABS: Lamotrigine (Lamictal) Level 5.4 mcg/mL (2.5-15.0)
== END 2023-08-26 10:44 | disposition home or self-care (01) ==
PROVIDERS: Emergency Medicine; Emergency Provider Family Medicine; PCP Nurse Practitioner Family
DX: G40.409 Other generalized epilepsy and epileptic syndromes, not intractable, without status epilepticus (principal); N18.9 Chronic kidney disease, unspecified; Z87.820 Personal history of traumatic brain injury
CPT/HCPCS: 36415; 71045; 80053; 80175; 80306; 81001; 83735; 84146; 85025; 93005; 96374; 99285; J2060; J7030

== ENCOUNTER 2023-10-29 14:06 | Emergency (ER) | payer SELFPAY ==
[2023-10-29 14:08] VITALS: BP 143/81; PULSE 107; RESP 16; TEMP 36.4; O2SAT 93; BMI 20.3
--- NOTE | 2023-10-29 14:14 | ED_ITS ---
HPI - Seizure 2 General: Chief Complaint: Seizure Stated Complaint: SEIZURES Time Seen by Provider: 10/29/23 14:09 Source: EMS Mode of arrival: EMS Limitations: altered mental status History of Present Illness: HPI Narrative: 43-year-old male is in the long history of seizures brought by EMS today after having a seizure at home that given him Versed he is now somnolent postictal no longer seizing he had no fall no head injury no known recent illness. Seizure History: Yes Review of Systems 2 General: Reports: ROS unobtainable due to mental status PFSH ED 2 PFSH: Medical History Chronic kidney disease Traumatic brain injury Medical non-compliance Smoking addiction Alcohol use disorder Seizure disorder Surgical History No significant past surgical history Family History Other Unknown family medical history Social History Alcohol intake: unknown Substance/Drug Use: unknown Lives independently: Yes Household members: other Details: Brother Marital status: Unknown Physical Exam 2 Const: COMMON NORMALS: negative for patient oriented x3 HENMT: COMMON NORMALS: normocephalic and atraumatic HEAD & SCALP: n ormocephalic and atraumatic Eye: COMMON NORMALS: Equal, round and reactive pupils present and EOMs intact bilaterally PUPIL: Yes Equal, round and reactive pupils present Neck/C-Spine: COMMON NORMALS: full ROM and supple Chest: COMMONS NORMALS: normal inspection of the chest Resp: COMMON NORMALS: normal respiratory effort, No retractions, No use of accessory muscles and clear to auscultation bilaterally AUSCULTATION: clear to auscultation bilaterally Cardio: COMMON NORMALS: regular rate, regular rhythm and No murmurs present (Cardio) RATE: regular rate RHYTHM: regular rhythm GI: COMMON NORMALS: Normal to inspection, nondistended, normoactive bowel sounds present, Soft to palpation, non-tender and no masses PALPATION: Yes Soft to palpation Extremity: COMMON NORMALS: normal to inspection and full ROM Neuro: COMMON NORMALS: moves all extremities and no focal motor deficits; negative for patient oriented x3 Psych: COMMON NORMALS: negative for mental status grossly normal Skin: COMMON NORMALS: no rashes or lesions noted and no wounds GENERAL SKIN EXAM: no rashes or lesions noted Course 2 Vital Signs: Vital signs: Vital Signs Temperature 97.6 F 10/29/23 14:08 Pulse Rate 91 10/29/23 16:17 Respiratory Rate 14 10/29/23 16:17 Blood Pressure 158/109 10/29/23 16:17 Pulse Oximetry 95 10/29/23 16:17 Oxygen Delivery Me thod Room Air 10/29/23 16:17 MDM - Seizure MDM Narrative Medical decision making narrative: Patient presents here with a seizure he is now awake and alert at his baseline blood work here shows no acute abnormalities patient was given IV fluids and Keppra he is stable for discharge follow-up PCP and return if worsening. Medical Records Attestation: I reviewed the patient's medical records. Lab Data Attestation: I reviewed the patient's lab results. 10/29/23 14:33 10/29/23 14:33 Labs: Laboratory Results WBC 12.94 10^3/uL (3.29-11.43) H 10/29/23 14:33 RBC 4.88 10^6/uL (3.85-5.65) 10/29/23 14:33 Hgb 15.30 g/dL (11.27-16.99) 10/29/23 14:33 Hct 44.8 % (37-53) 10/29/23 14:33 MCV 91.8 fl (82-101) 10/29/23 14:33 MCH 31.4 pg (27-33) 10/29/23 14:33 MCHC 34.2 g/dL (30-55) 10/29/23 14:33 RDW 13.7 % (12.1-15.1) 10/29/23 14:33 Plt Count 230 10^3/cmm (157-399) 10/29/23 14:33 MPV 9.1 fL (7.4-10.4) 10/29/23 14:33 Neut % (Auto) 89.7 % 10/29/23 14:33 Lymph % (Auto) 4.8 % 10/29/23 14:33 [place] % (Auto) 4.6 % 10/29/23 14:33 Eos % (Auto) 0.1 % 10/29/23 14:33 Baso % (Auto) 0.3 % 10/29/23 14:33 Neut # (Auto) 11.61 10^3/uL (1.8-7.7) H 10/29/23 14:33 Lymph # (Auto) 0.6 10^3/uL (0.8-4.8) L 10/29/23 14:33 [place] # (Auto) 0.6 10^3/uL (0.2-0.9) 10/29/23 14:33 Eos # (Auto) 0.0 10^3/uL (0.0-0.8) 10/29/23 14:33 Baso # (Auto) 0.0 10^3/uL (0.0-0.1) 10/29/23 14:33 Nucleated RBC % (auto) 0 % 10/29/23 14:33 Nucleated RBCs # 0.0 /100WBC 10/29/23 14:33 Sodium 130 mmol/L (136-145) L 10/29/23 14:33 Potassium 4.0 mmol/L (3.5-5.1) 10/29/23 14:33 Chloride 92 mmol/L (98-107) L 10/29/23 14:33 Carbon Dioxide 15 mmol/L (22-29) L 10/29/23 14:33 Anion Gap 27.0 (5-19) H 10/29/23 14:33 BUN 10 mg/dL (6-20) 10/29/23 14:33 Creatinine 1.2 mg/dL (0.7-1.2) 10/29/23 14:33 GFR Calculation 65.8 mL/min (90-130) L 10/29/23 14:33 Glucose 182 mg/dL (65-115) H 10/29/23 14:33 POC Glucose 160 mg/dL (70-110) H 10/29/23 14:34 Calculated Osmolality 274 mOsm/kg (285-295) L 10/29/23 14:33 Calcium 9.4 mg/dL (8.5-10.5) 10/29/23 14:33 Total Bilirubin 0.4 mg/dL (0.15-1.2) 10/29/23 14:33 AST 25 U/L (0-40) 10/29/23 14:33 ALT 14 U/L (0-41) 10/29/23 14:33 Alkaline Phosphatase 146 U/L (40-130) H 10/29/23 14:33 Total Protein 7.3 g/dL (6.6-8.7) 10/29/23 14:33 Albumin 4.4 g/dL (3.5-5.2) 10/29/23 14:33 Globulin 2.9 g/dL (1.3-4.6) 10/29/23 14:33 No radiology studies performed this visit Discharge Plan Discharge Patient Disposition: Home Clinical Impression: Generalized seizure Condition: Stable Prescriptions: No Action lamotrigine 200 mg Tablet 200 mg PO BID Discharge Orders: Discharge ED (Routine); Ordered 10/29/23 Ordered By: Laisha Frias Referrals: Nathalie Mills FNP [Primary Care Provider] - 1-3 days Discharge Diet: Advance as tolerated Discharge Activity: Resume usual activity Patient Instructions: Recurrent Seizures in Adults (ED) Coding Level of Care Code ED Commercial Loan Analyst for Micheal Sprague
[2023-10-29] MEDS: levETIRAcetam 1,000 MG/100 ML PREMIX 400 MG IV (14:27)
--- NOTE | 2023-10-29 14:28 | PC.NURSE ---
pt arrived in 4 point restraints, applied by [facility]. EMS removed restraints upon arrival to room 14. ED physician aware and laid eyes on patient. seizure pads placed on pts bed. pt oxygen sat 90%, 2L NC applied, ED physician notified.
[2023-10-29 14:30] VITALS: BP 143/81; PULSE 107; RESP 13; O2SAT 90
[2023-10-29 14:38] LABS: Glucose Point of Care 160 mg/dL (70-110)
[2023-10-29 14:40] LABS: Basophils % 0.3 %; Eosinophils % 0.1 %; Hematocrit 44.8 % (37-53); Lymphocytes # 0.6 10^3/uL (0.8-4.8); Lymphocytes % 4.8 %; Mean Corpuscular HGB Conc 34.2 g/dL (30-55); Mean Corpuscular Hemoglobin 31.4 pg (27-33); Mean Corpuscular Volume 91.8 fl (82-101); Mean Platelet Volume 9.1 fL (7.4-10.4); Monocytes # 0.6 10^3/uL (0.2-0.9); Monocytes % 4.6 %; Neutrophils # 11.61 10^3/uL (1.8-7.7); Neutrophils % 89.7 %; Nucleated Red Blood Cells % 0 %; Platelet Count 230 10^3/cmm (157-399); Red Blood Count 4.88 10^6/uL (3.85-5.65); Red Cell Distribution Width 13.7 % (12.1-15.1); White Blood Count 12.94 10^3/uL (3.29-11.43)
--- NOTE | 2023-10-29 14:52 | PC.NURSE ---
removed oxygen, pt currently on room air, oxygen sat 94%. pt removed IV, ED physician notified. pt unable to follow directions at this time, pt drowsy, but alerts to verbal stimuli.
--- NOTE | 2023-10-29 15:09 | PC.NURSE ---
pt moved to ER room 8 to have 1:1 sitter present if needed, report given to ER nurse taking over for pt at 1510. pts wallet, pocket knife, and fingernail clippers placed in drawer out outside ER 8
[2023-10-29 15:30] LABS: Alanine Aminotransferase 14 U/L (0-41); Albumin Level 4.4 g/dL (3.5-5.2); Alkaline Phosphatase 146 U/L (40-130); Aspartate Amino Transferase 25 U/L (0-40); Blood Urea Nitrogen 10 mg/dL (6-20); Calcium 9.4 mg/dL (8.5-10.5); Carbon Dioxide 15 mmol/L (22-29); Chloride 92 mmol/L (98-107); Globulin 2.9 g/dL (1.3-4.6); Glomerular Filtration Rate 65.8 mL/min (90-130); Glucose 182 mg/dL (65-115); Osmolality Calculated 274 mOsm/kg (285-295); Sodium 130 mmol/L (136-145); Total Bilirubin 0.4 mg/dL (0.15-1.2); Total Protein 7.3 g/dL (6.6-8.7)
[2023-10-29] MEDS: sodium chloride 0.9% 1,000 ML 999 ML IV (16:16)
[2023-10-29 16:17] VITALS: BP 158/109; PULSE 91; RESP 14; O2SAT 95
[2023-10-29 16:49] VITALS: PULSE 88; RESP 16; O2SAT 98
== END 2023-10-29 16:57 | disposition home or self-care (01) ==
PROVIDERS: Emergency Provider Emergency Medicine; PCP Nurse Practitioner Family
DX: G40.409 Other generalized epilepsy and epileptic syndromes, not intractable, without status epilepticus (principal); N18.9 Chronic kidney disease, unspecified; Z87.820 Personal history of traumatic brain injury
CPT/HCPCS: 36416; 80053; 82962; 85025; 96365; 99284; J1953; J7030

== ENCOUNTER 2024-03-03 20:19 | Emergency (ER) | payer SELFPAY ==
[2024-03-03 20:27] VITALS: BP 124/94; PULSE 111; RESP 18; TEMP 38.2; O2SAT 96
[2024-03-03] MEDS: sodium chloride 0.9% 1,000 ML 999 ML IV (20:48)
[2024-03-03] MEDS: levETIRAcetam 1,500 MG/100 ML PREMIX 400 MG IV (20:48)
--- NOTE | 2024-03-03 20:59 | W.ED.SEIZURE ---
HPI - Seizure General: Chief Complaint: Seizure Stated Complaint: SEIZURE Time Seen by Provider: 03/03/24 20:31 History of Present Illness: HPI Narrative: Tony Pedraza is a 44-year-old man with long history of epilepsy. Currently he is treated with lamotrigine 200 mg twice daily. Patient arrives by EMS. No family at bedside. And report we are told that he had 5 seizures in the last 2 hours. He was given diazepam 5 mg IM followed by 5 mg IV. No other HPI available Seizure History: Yes Review of Systems General: Reports: ROS unobtainable due to medical condition PFSH ED PFSH: Medical History Chronic kidney disease Traumatic brain injury Medical non-compliance Smoking addiction Alcohol use disorder Seizure disorder Surgical History No significant past surgical history Family History Other Unknown family medical history Social History Alcohol intake: unknown Substance/Drug Use: unknown Lives independently: Yes Household members: other Details: Brother Marital status: Unknown Physical Exam Const: COMMON NORMALS: negative for patient oriented x3 HENMT: COMMON NORMALS: normocephalic and atraumatic HEAD & SCALP: normocephalic and atraumatic Eye: COMMON NORMALS: Equal, round and reactive pupils present and EOMs intact bilaterally PUPIL: Yes Equal, round and reactive pupils present, Yes Dilated pupils and Yes Other pupil findings (No nystagmus) Neck/C-Spine: COMMON NORMALS: full ROM and supple Chest: COMMONS NORMALS: normal inspection of the chest Resp: COMMON NORMALS: normal respiratory effort, No retractions, No use of accessory muscles and clear to auscultation bilaterally AUSCULTATION: clear to auscultation bilaterally Cardio: COMMON NORMALS: regular rate, regular rhythm and No murmurs present (Cardio) RATE: regular rate RHYTHM: regular rhythm GI: COMMON NORMALS: Normal to inspection, nondistended, normoactive bowel sounds present, Soft to palpation, non-tender and no masses PALPATION: Yes Soft to palpation Extremity: COMMON NORMALS: normal to inspection and full ROM Neuro: COMMON NORMALS: moves all extremities and no focal motor deficits; negative for patient oriented x3 Psych: COMMON NORMALS: negative for mental status grossly normal Skin: COMMON NORMALS: no rashes or lesions noted and no wounds GENERAL SKIN EXAM: no rashes or lesions noted Course Vital Signs: Vital signs: Vital Signs Temperature 100.7 F H 03/03/24 20:27 Pulse Rate 102 H 03/03/24 21:12 Respiratory Rate 18 03/03/24 21:12 Blood Pressure 157/97 03/03/24 21:12 Pulse Oximetry 95 03/03/24 21:12 Oxygen Delivery Me thod Room Air 03/03/24 21:12 MDM - Seizure MDM Narrative Medical decision making narrative: Patient was evaluated in the emergency department today for seizure activity. Patient has a history of seizures and is currently treated with lamotrigine. Initially he was agitated and did not follow commands. Would not answer questions. After several hours and some fluids, patient did rouse and was able to answer questions. He has a longstanding history of seizures. Currently sees Dr. Porter for management. He is taking his medications as prescribed still experiencing breakthrough seizures. He currently lives with 2 older brothers. He has refused labs. We were able to get a chest x-ray which reveals no acute finding. I have reviewed/reexamined patient he is alert and oriented now. Wishes to go home. Here in the emergency department he did receive Keppra 1500 mg and approximately 500 cc of normal saline. Patient needs to follow-up with his neurologist for ongoing seizure evaluation Lab Data Labs: Radiology Impressions Chest X-Ray 03/03/24 21:05 IMPRESSION: No acute findings. All radiology interpretation(s) finalized by discharge Discharge Plan Discharge Patient Disposition: Home Clinical Impression: Epileptic seizure Condition: Stable Prescriptions: No Action lamotrigine 200 mg Tablet 200 mg PO BID Discharge Orders: Discharge ED (Routine); Ordered 03/03/24 Ordered By: Gennaro Carlin Referrals: Nathalie Mills FNP [Primary Care Provider] - Discharge Diet: Advance as tolerated Discharge Activity: Resume usual activity Patient Instructions: Lamotrigine (By mouth) (Lamictal, Lamictal CD, Lamictal ODT,..., Epilepsy (ED), Pain Management Activity Restrictions/Additional Instructions: Please follow-up with Dr. Porter Please take your medications as prescribed Please return to the emergency department for new, concerning, worsening symptoms Coding Level of Care Code ED Wastewater Plant Civil Engineer for Micheal Sprague
--- NOTE | 2024-03-03 21:05 | XRR_ITS ---
PROCEDURE INFORMATION: Exam: XR Chest Exam date and time: 03/03/2024 10:05 PM Age: 44 years old Clinical indication: Patient HX: EMS arrivla for seizure activity. TECHNIQUE: Imaging protocol: Radiologic exam of the chest. Views: 1 view. COMPARISON: CR XR chest 1V portable [id number] 08/26/2023 6:21 AM FINDINGS: Lungs: Unremarkable. No consolidation. Pleural spaces: Unremarkable. No pleural effusion. No pneumothorax. Heart/Mediastinum: Unremarkable. No cardiomegaly. Bones/joints: Mild dextroscoliosis. Stable one or more healed right rib fractures. XR/XR chest 1V portable [id number] IMPRESSION: No acute findings.
[2024-03-03 21:12] VITALS: BP 157/97; PULSE 102; RESP 18; O2SAT 95
[2024-03-03 23:23] VITALS: BP 180/93; RESP 18
[2024-03-04 00:05] VITALS: BP 180/93; PULSE 100; RESP 18; O2SAT 95
== END 2024-03-03 23:53 | disposition home or self-care (01) ==
PROVIDERS: Emergency Provider Nurse Practitioner; PCP Nurse Practitioner Family
DX: G40.909 Epilepsy, unspecified, not intractable, without status epilepticus (principal); N18.9 Chronic kidney disease, unspecified; Z87.820 Personal history of traumatic brain injury
CPT/HCPCS: 71045; 96365; 96366; 99284; J1953; J7030

== ENCOUNTER → 2024-09-05 13:14 | Outpatient (BNVA) | payer MEDICAID, SELFPAY | PROVIDERS: PCP Nurse Practitioner Family; Visit Provider Specialist | DX: G40.109 Localization-related (focal) (partial) symptomatic epilepsy and epileptic syndromes with simple partial seizures, not intractable, without status epilepticus; F10.20 Alcohol dependence, uncomplicated; R03.0 Elevated blood-pressure reading, without diagnosis of hypertension; N17.9 Acute kidney failure, unspecified; M25.511 Pain in right shoulder | CPT/HCPCS: 99214 ==

== ENCOUNTER → 2024-10-26 14:05 | Outpatient (BNVA) | payer MEDICAID, SELFPAY | PROVIDERS: PCP Nurse Practitioner Family; Visit Provider Specialist | DX: G40.109 Localization-related (focal) (partial) symptomatic epilepsy and epileptic syndromes with simple partial seizures, not intractable, without status epilepticus (principal); F10.20 Alcohol dependence, uncomplicated; R73.9 Hyperglycemia, unspecified; E87.1 Hypo-osmolality and hyponatremia; G40.909 Epilepsy, unspecified, not intractable, without status epilepticus; R03.0 Elevated blood-pressure reading, without diagnosis of hypertension | CPT/HCPCS: 99213; 99214 ==

== ENCOUNTER 2025-05-05 09:27 | Emergency (ER) | payer MEDICAID, SELFPAY ==
[2025-05-05] VITALS (11 sets, daily range): BP systolic 125–255; BP diastolic 98–167; PULSE 89–116; RESP 25; TEMP 37.2; O2SAT 90–100
--- NOTE | 2025-05-05 09:30 | CTR_ITS ---
PROCEDURE INFORMATION: Exam: CT Head Without Contrast Exam date and time: 05/05/2025 10:11 AM Age: 45 years old Clinical indication: Other: Seizure TECHNIQUE: Imaging protocol: Computed tomography of the head without contrast. Radiation optimization: All CT scans at this facility use at least one of these dose optimization techniques: automated exposure control; mA and/or kV adjustment per patient size (includes targeted exams where dose is matched to clinical indication); or iterative reconstruction. COMPARISON: CT head wo con* [id number] 08/26/2022 2:33 AM RADIATION DOSE METRICS: Total DLP (mGy-cm): 1495.18 FINDINGS: Brain: There is a small focal oval hyperdensity lying within the inferior aspect of the right occipital lobe. This is felt to represent an acute parenchymal hemorrhage and measures 11 x 3.8 x 3.7 mm. No significant surrounding edema noted. Small area of chronic encephalomalacia involves the right parieto-occipital lobe region. I see no midline shift or hydrocephalus. Cerebral ventricles: See Brain finding. Paranasal sinuses: Visualized sinuses are unremarkable. No fluid levels. Mastoid air cells: Visualized mastoid air cells are well aerated. 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 Soft tissues: Unremarkable. CT/CT head wo con* [id number] IMPRESSION: Small acute parenchymal hemorrhage of the right occipital lobe of uncertain etiology. Total hemorrhage volume is 0.15 cc.
--- NOTE | 2025-05-05 09:31 | ECG_ITS ---
[facility] Test Date: 2025-05-05 Pat Name: Tony Galo Department: Room: Gender: Male Terrestrial Ecologist: : 1980 Requested By: Laisha Frias Order Number: [id number] Yamileth MD: Max Villeda M.D. Measurements Intervals [place] Rate: 110 P: 99 [place]: 162 QRS: 50 QRSD: 88 T: 74 QT: 300 QTc: 407 Interpretive Statements SINUS TACHYCARDIA LEFT ATRIAL ENLARGEMENT [-0.15mV P-WAVE IN V1/V2] POSSIBLE LEFT VENTRICULAR HYPERTROPHY [VOLTAGE CRITERIA PLUS LAE OR QRS WIDENING] Compared to ECG 08/26/2023 05:58:08 No significant changes Electronically Signed On 05-05-2025 19:17:59 CDT by Max Villeda M.D. [id number] [id number]
--- NOTE | 2025-05-05 09:32 | ED_ITS ---
HPI - Seizure 2 General: Chief Complaint: Seizure Stated Complaint: seizures Time Seen by Provider: 05/05/25 09:27 Source: patient and EMS Mode of arrival: EMS Limitations: no limitations History of Present Illness: HPI Narrative: 45-year-old male who has a history of se izures along with alcoholism. Patient had a seizure at home today per EMS sees roughly 5 to 10 minutes they have given him Valium he is no longer seizing. EMS states there was lots of marijuana in his room. Patient does have a history of alcoholism. Patient's currently postictal not able to give a history at this time no head injuries. Seizure History: Yes Related Data Previous Rx's ?Medication ?Instructions ?Recorded lamotrigine 200 mg tablet 200 mg PO BID #180 tabs 10/14 02/04 Allergies Allergy/AdvReac Type Severity Reaction Status Date / Time No Known Allergies Allergy Verified 10/26/24 14:42 Review of Systems 2 General: Reports: ROS unobtainable due to mental status PFSH ED 2 PFSH: Medical History Chronic kidney disease Traumatic brain injury Medical non-compliance Smoking addiction Alcohol use disorder Seizure disorder Surgical History No significant past surgical history Family History Other Unknown family medical history Social History Smoking and tobacco/nicotine status: current every day tobacco/nicotine user (1 PPD) Alcohol intake: unknown Substance/Drug Use: unknown Lives independently: Yes Household members: other Details: Brother Marital status: Unknown Physical Exam 2 Const: COMMON NORMALS: negative for patient oriented x3 HENMT: COMMON NORMALS: normocephalic and atraumatic HEAD & SCALP: n ormocephalic and atraumatic Eye: COMMON NORMALS: Equal, round and reactive pupils present, EOMs intact bilaterally and conjunctivae normal CONJUNCTIVA: Yes conjunctivae normal P UPIL: Yes Equal, round and reactive pupils present Neck/C-Spine: COMMON NORMALS: full ROM and supple Chest: COMMONS NORMALS: normal inspection of the chest Resp: COMMON NORMALS: normal respiratory effort, No retractions, No use of accessory muscles and clear to auscultation bilaterally AUSCULTATION: clear to auscultation bilaterally Cardio: COMMON NORMALS: regular rate, regular rhythm and No murmurs present (Cardio) RATE: regular rate RHYTHM: regular rhythm GI: COMMON NORMALS: Normal to inspection, nondistended, normoactive bowel sounds present, Soft to palpation, non-tender and no masses PALPATION: Yes Soft to palpation Extremity: COMMON NORMALS: normal to inspection and full ROM Neuro: COMMON NORMALS: moves all extremities and no focal motor deficits; negative for patient oriented x3 Psych: COMMON NORMALS: cooperative Skin: COMMON NORMALS: no rashes or lesions noted and no wounds GENERAL SKIN EXAM: no rashes or lesions noted Procedures Intubation Time out performed: Yes sedative: Etomidate Mg Given: 20 paralytic: Vecuronium Mg Given: 10 Laryngoscope: Angélica ET Tube Size: 8 ET Tube Uncuffed: No Tube Secured Depth (cm): 25 Tube Secured Location: teeth Tube Placement Confirmation: visualized tube passing through cords, equal breath sounds bilaterally, no breath sounds over epigastrium and confirmation by capnometry Patient Tolerated Procedure: well Intubation Complications: none Course 2 Vital Signs: Vital signs: Vital Signs Temperature 98.9 F 05/05/25 09:32 Pulse Rate 112 H 05/05/25 09:50 Respiratory Rate 25 H 05/05/25 09:32 Blood Pressure 165/117 05/05/25 09:50 Pulse Oximetry 91 05/05/25 09:50 Oxygen Delivery Me thod Nasal Cannula 05/05/25 09:50 Oxygen Flow Rate 3 05/05/25 09:50 MDM - Seizure MDM Narrative Medical decision making narrative: Patient presents here after seizures found to have a small brain hemorrhage. He was intubated here as he is combative for the flight. Will transfer to [facility] for higher level care of neurosurgery Lab Data 05/05/25 09:45 05/05/25 09:45 Labs: Radiology Impressions Head CT 05/05/25 09:30 IMPRESSION: Small acute parenchymal hemorrhage of the right occipital lobe of uncertain etiology. Total hemorrhage volume is 0.15 cc. ADDENDUM: 05/05/25 1040 COMMENT: THIS REPORT CONTAINS FINDINGS THAT MAY BE CRITICAL TO PATIENT CARE. The exam findings were verbally communicated by me to SAÚL BEAR via telephone conference at 10:38 AM CDT on 05/05/2025. The findings were acknowledged and understood. Laboratory Results WBC 11.28 10^3/uL (3.29-11.43) 05/05/25 09:45 RBC 4.78 10^6/uL (3.85-5.65) 05/05/25 09:45 Hgb 15.10 g/dL (11.27-16.99) 05/05/25 09:45 Hct 44.8 % (37-53) 05/05/25 09:45 MCV 93.7 fl (82-101) 05/05/25 09:45 MCH 31.6 pg (27-33) 05/05/25 09:45 MCHC 33.7 g/dL (30-55) 05/05/25 09:45 RDW 14.2 % (12.1-15.1) 05/05/25 09:45 Plt Count 261 10^3/cmm (157-399) 05/05/25 09:45 MPV 8.9 fL (7.4-10.4) 05/05/25 09:45 Neut % (Auto) 89.2 % 05/05/25 09:45 Lymph % (Auto) 5.6 % 05/05/25 09:45 [place] % (Auto) 3.8 % 05/05/25 09:45 Eos % (Auto) 0.4 % 05/05/25 09:45 Baso % (Auto) 0.5 % 05/05/25 09:45 Neut # (Auto) 10.05 10^3/uL (1.8-7.7) H 05/05/25 09:45 Lymph # (Auto) 0.6 10^3/uL (0.8-4.8) L 05/05/25 09:45 [place] # (Auto) 0.4 10^3/uL (0.2-0.9) 05/05/25 09:45 Eos # (Auto) 0.1 10^3/uL (0.0-0.8) 05/05/25 09:45 Baso # (Auto) 0.1 10^3/uL (0.0-0.1) 05/05/25 09:45 Nucleated RBC % (auto) 0 % 05/05/25 09:45 Nucleated RBCs # 0.0 /100WBC 05/05/25 09:45 Sodium 139 mmol/L (136-145) 05/05/25 09:45 Potassium 4.2 mmol/L (3.5-5.1) 05/05/25 09:45 Chloride 99 mmol/L (98-107) 05/05/25 09:45 Carbon Dioxide 19 mmol/L (22-29) L 05/05/25 09:45 Anion Gap 25.2 (5-19) H 05/05/25 09:45 BUN 11 mg/dL (6-20) 05/05/25 09:45 Creatinine 1.1 mg/dL (0.7-1.2) 05/05/25 09:45 GFR Calculation 72.1 mL/min (90-130) L 05/05/25 09:45 Glucose 169 mg/dL (65-115) H 05/05/25 09:45 Calculated Osmolality 291 mOsm/kg (285-295) 05/05/25 09:45 Calcium 9.3 mg/dL (8.5-10.5) 05/05/25 09:45 Total Bilirubin 0.3 mg/dL (0.15-1.2) 05/05/25 09:45 AST 25 U/L (0-40) 05/05/25 09:45 ALT 15 U/L (0-41) 05/05/25 09:45 Alkaline Phosphatase 169 U/L (40-130) H 05/05/25 09:45 Total Protein 7.2 g/dL (6.6-8.7) 05/05/25 09:45 Albumin 4.1 g/dL (3.5-5.2) 05/05/25 09:45 Globulin 3.1 g/dL (1.3-4.6) 05/05/25 09:45 Ethyl Alcohol < 10 mg/dL (0-10) 05/05/25 09:45 All radiology interpretation(s) finalized by discharge Critical Care Time 2 Critical Care Time: Critical Care Time: Yes Total Critical Care Time: 45 Attestation: The high probability of a clinically significant, sudden or life threatening deterioration of the patient's neuro system(s) required my full and direct attention, intervention and personal management. The critical care time is as shown. This time is in addition to time spent performing any reported procedures but includes the following: [x] Data and vital sign review and interpretation [x] Patient assessment, examination and intervention [x] Documentation [x] Medication orders and management Discharge Plan Discharge Patient Disposition: Xfer Short-Term Hosp Clinical Impression: Generalized seizure, Intraparenchymal hemorrhage of brain Condition: Stable Referrals: Mills,Nathalie, ENAMEL DRIER [Primary Care Provider, Nurse Practitioner] Print Language: Comoran Coding Level of Care Code ED Radio Electrician for Micheal Sprague
[2025-05-05] MEDS: levETIRAcetam 1,000 MG/100 ML PREMIX 400 MG IV (09:39)
[2025-05-05 09:54] LABS: Basophils # 0.1 10^3/uL (0.0-0.1); Basophils % 0.5 %; Eosinophils # 0.1 10^3/uL (0.0-0.8); Eosinophils % 0.4 %; Hematocrit 44.8 % (37-53); Lymphocytes # 0.6 10^3/uL (0.8-4.8); Lymphocytes % 5.6 %; Mean Corpuscular HGB Conc 33.7 g/dL (30-55); Mean Corpuscular Hemoglobin 31.6 pg (27-33); Mean Corpuscular Volume 93.7 fl (82-101); Mean Platelet Volume 8.9 fL (7.4-10.4); Monocytes # 0.4 10^3/uL (0.2-0.9); Monocytes % 3.8 %; Neutrophils # 10.05 10^3/uL (1.8-7.7); Neutrophils % 89.2 %; Nucleated Red Blood Cells % 0 %; Platelet Count 261 10^3/cmm (157-399); Red Blood Count 4.78 10^6/uL (3.85-5.65); Red Cell Distribution Width 14.2 % (12.1-15.1); White Blood Count 11.28 10^3/uL (3.29-11.43)
--- NOTE | 2025-05-05 10:04 | PC.PHAR ---
Pts' dosage on Lamotrigine increased to 200mg bid on 04/22/25 30ds. Unknown when last taken.
[2025-05-05 10:13] LABS: Alanine Aminotransferase 15 U/L (0-41); Albumin Level 4.1 g/dL (3.5-5.2); Alkaline Phosphatase 169 U/L (40-130); Anion Gap 25.2 (5-19); Aspartate Amino Transferase 25 U/L (0-40); Blood Urea Nitrogen 11 mg/dL (6-20); Calcium 9.3 mg/dL (8.5-10.5); Carbon Dioxide 19 mmol/L (22-29); Chloride 99 mmol/L (98-107); Creatinine Clr Calc Pharmacy 62.4495; Globulin 3.1 g/dL (1.3-4.6); Glomerular Filtration Rate 72.1 mL/min (90-130); Glucose 169 mg/dL (65-115); Osmolality Calculated 291 mOsm/kg (285-295); Potassium 4.2 mmol/L (3.5-5.1); Sodium 139 mmol/L (136-145); Total Bilirubin 0.3 mg/dL (0.15-1.2); Total Protein 7.2 g/dL (6.6-8.7)
[2025-05-05 10:17] LABS: Alcohol Level < 10 mg/dL (0-10)
[2025-05-05] MEDS: labetalol 5 mg/mL SDV 20mL 10 MG IVP (11:05)
[2025-05-05] MEDS: etomidate 2 mg/mL INJ SDV 10 mL 20 MG IVP (11:19)
[2025-05-05] MEDS: vecuronium 10 mg SDV IVP (11:19)
[2025-05-05] MEDS: propofol 1,000 MG/100 ML INJ 1.58 MG IV (11:22)
--- NOTE | 2025-05-05 11:25 | XRR_ITS ---
PROCEDURE INFORMATION: Exam: XR Chest Exam date and time: 05/05/2025 11:24 AM Age: 45 years old Clinical indication: Device placement; Ett placement (vent status); Ett confirmation TECHNIQUE: Imaging protocol: Radiologic exam of the chest. Views: 1 view. COMPARISON: CR XR chest 1V portable [id number] 03/03/2024 10:05 PM FINDINGS: Tubes, catheters and devices: The endotracheal tube is in good position within the trachea. Lungs: Unremarkable. No consolidation or mass. Pleural spaces: Unremarkable. No pleural effusion. No pneumothorax. Heart/Mediastinum: Unremarkable. No cardiomegaly. Bones/joints: Unremarkable. XR/XR chest 1V portable [id number] IMPRESSION: Good endotracheal tube positioning
[2025-05-05] MEDS: nicardipine 20 MG/200 ML PREMIX 50 MG IV (11:38)
[2025-05-05] MEDS: labetalol 5 mg/mL SDV 20mL 20 MG IVP (12:03)
== END 2025-05-05 12:30 | disposition short-term general hospital (02) ==
PROVIDERS: Emergency Provider Emergency Medicine; PCP Nurse Practitioner Family
DX: G40.89 Other seizures (principal); I61.8 Other nontraumatic intracerebral hemorrhage; F17.210 Nicotine dependence, cigarettes, uncomplicated; Z87.820 Personal history of traumatic brain injury; N18.9 Chronic kidney disease, unspecified
CPT/HCPCS: 31500; 36415; 70450; 71045; 80053; 80307; 85025; 93005; 96365; 96366; 96367; 96375; 96376; 99291; 99292; J1953; J2404; J2704; J3490

== ENCOUNTER 2025-06-25 15:50 | Inpatient (IN) | payer MEDICAID, SELFPAY ==
[2025-06-25] VITALS (9 sets, daily range): BP systolic 117–166; BP diastolic 58–108; PULSE 62–126; RESP 16; TEMP 36.8; O2SAT 91–98
--- NOTE | 2025-06-25 15:58 | CTR_ITS ---
PROCEDURE INFORMATION: Exam: CT Head Without Contrast Exam date and time: 06/25/2025 5:57 PM Age: 45 years old Clinical indication: Altered mental status/memory loss and other: Seizure; Confusion or disorientation; Additional info: AMS TECHNIQUE: Imaging protocol: Computed tomography of the head without contrast. Radiation optimization: All CT scans at this facility use at least one of these dose optimization techniques: automated exposure control; mA and/or kV adjustment per patient size (includes targeted exams where dose is matched to clinical indication); or iterative reconstruction. COMPARISON: CT head wo con* [id number] 05/05/2025 10:11 AM RADIATION DOSE METRICS: Total DLP (mGy-cm): 1159.18 FINDINGS: Brain: Small area of similar chronic encephalomalacia involving the right parietal lobe. Previously identified area of acute parenchymal hemorrhage and edema in the right occipital lobe assess resolved. No definite new focal area of acute intracranial hemorrhage. No mass effect or midline shift. Cerebral ventricles: No ventriculomegaly. Paranasal sinuses: Visualized sinuses are unremarkable. No fluid levels. Mastoid air cells: The paranasal sinuses and mastoid air cells are well aerated. 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 The calvarium is intact. Soft tissues: Unremarkable. CT/CT head wo con* [id number] IMPRESSION: No acute intracranial abnormality. 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 Previously described acute intracranial hemorrhagic focus in the right parieto-occipital lobe has since resolved.
--- NOTE | 2025-06-25 15:58 | XRR_ITS ---
PROCEDURE INFORMATION: Exam: XR Chest Exam date and time: 06/25/2025 4:31 PM Age: 45 years old Clinical indication: Other: AMS TECHNIQUE: Imaging protocol: Radiologic exam of the chest. Views: 1 view. COMPARISON: CR (CHEST, ) 05/22/2022 5:31 AM FINDINGS: Lungs: Unremarkable. No consolidation. Pleural spaces: Unremarkable. No pleural effusion. No pneumothorax. Heart/Mediastinum: Unremarkable. No cardiomegaly. Bones/joints: Old rib fractures. XR/XR chest 1V [id number] IMPRESSION: No acute findings.
--- NOTE | 2025-06-25 16:00 | ED_ITS ---
HPI - Abdominal Pain 2 General: Chief Complaint: Seizure Stated Complaint: seizures Time Seen by Provider: 06/25/25 15:51 History of Present Illness: Chief plaint seizure. Patient has reported history of seizures according EMS. Bystanders reportedly had several seizures today. No reported trauma or overdose. EMS states there was almost no history obtainable due to the patient's altered mental status and bystanders had very little information on the patient. They state that he was postictal and very confused and combative en route and he was given 5 mg of Valium twice IV. Related Data Previous Rx's ?Medication ?Instructions ?Recorded lamotrigine 100 mg tablet 50 mg (1/2 x 100 mg) PO BID #90 05/29/25 (Lamictal) tabs lamotrigine 200 mg tablet 200 mg PO BID #180 tabs 05/14 05/08 Allergies Allergy/AdvReac Type Severity Reaction Status Date / Time No Known Allergies Allergy Verified 10/26/24 14:42 [facility] ED 2 PFS: Medical History (Updated 06/25/25 @ 21:00 by Edis Grier MD) Chronic kidney disease Traumatic brain injury Medical non-compliance Smoking addiction Alcohol use disorder Seizure disorder Surgical History No significant past surgical history Family History Other Unknown family medical history Social History Smoking and tobacco/nicotine status: current every day tobacco/nicotine user (1 PPD) Alcohol intake: unknown Substance/Drug Use: unknown Lives independently: Yes Household members: other Details: Brother Marital status: Unknown Physical Exam 2 Narrative: EXAM NARRATIVE: Patient is lying on his side. He has purposeful movements with all 4 extremities. He is very confused but did open his eyes to command. Pupils react to light briskly. Neck is supple. Heart is tachycardic. Lung sounds are clear. Abdomen soft nontender. Extremities warm appear well-perfused. No visible signs of trauma. He has dry mucous membranes. He does not answer any questions. No clear following of commands although when I try to get the patient to roll on his back he does use both arms to try to rollover. No visible rash in exposed areas. He is fairly poorly kept. Conjunctiva appears normal. Course 2 Vital Signs: Vital signs: Vital Signs Temperature 98.2 F 06/25/25 15:51 Pulse Rate 113 H 06/25/25 20:44 Respiratory Rate 16 06/25/25 16:33 Blood Pressure 164/108 06/25/25 20:44 Pulse Oximetry 97 06/25/25 20:44 Oxygen Delivery Me thod Room Air 06/25/25 20:44 MDM - Abdominal Pain Medical Decision Making Patient presents by EMS with altered mental status after reported seizure by bystanders. EMS states that bystanders state that he has had some other seizures today and that he has a history of seizures. They do not know if he is on any seizure medication or if he has any history of seizures in the past otherwise. Patient cannot provide history. No reported trauma or overdose or substance abuse however EMS states that history is very limited and they cannot exclude these. Patient is confused and trying to roll on his side to sleep. He does not follow any clear commands but does have some purposeful movements with his arms and legs bilaterally. EMS reports they did not note any focal deficits on his motor exam. He has no facial droop. Patient is likely postictal. Overdose, substance abuse, withdrawal, seizure, traumatic injury, extremely broad differential. CBC CMP lactic EKG alcohol level CK ordered as well as CT of the head and chest x-ray ordered. Will monitor patient closely. Patient does not appear to be having seizures currently. On review of the record patient is reportedly on lamotrigine. CT head negative for acute process per radiology. Chest x-ray negative for acute process. Patient's lactic is elevated bicarb is low most consistent with seizure. Patient alcohol level is not elevated. Patient's salicylate and acetaminophen levels not elevated. Patient given Versed IV because he would not lay flat on his back and continues trying to roll over on his side when we attempt to do CT or imaging. Patient will rest comfortably when left alone. He has purposeful movements on both sides of his body. I do not think he is having active seizures. I discussed with the hospitalist Dr. Leon who accepts the patient for admission we will continue patient care. Patient given IV fluid bolus with his elevated lactic and septic suspected dehydration as well as thiamine IV. Patient is now awake. When asking his name he states with clear speech what the fuck what is my name? what the fuck is wrong with your? Patient refuses to answer any questions. He has clear speech and is moving freely on bed. Neck is supple. Lab Data 06/25/25 16:31 06/25/25 16:31 Labs/Radiology: Radiology Impressions Chest X-Ray 06/25/25 15:58 IMPRESSION: No acute findings. Head CT 06/25/25 15:58 IMPRESSION: No acute intracranial abnormality. 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 Previously described acute intracranial hemorrhagic focus in the right parieto-occipital lobe has since resolved. Laboratory Results WBC 18.34 10^3/uL (3.29-11.43) H 06/25/25 16:31 RBC 4.78 10^6/uL (3.85-5.65) 06/25/25 16:31 Hgb 15.10 g/dL (11.27-16.99) 06/25/25 16:31 Hct 43.1 % (37-53) 06/25/25 16:31 MCV 90.2 fl (82-101) 06/25/25 16:31 MCH 31.6 pg (27-33) 06/25/25 16:31 MCHC 35.0 g/dL (30-55) 06/25/25 16: RDW 14.1 % (12.1-15.1) 06/25/25 16:31 Plt Count 257 10^3/cmm (157-399) 06/25/25 16:31 MPV 8.6 fL (7.4-10.4) 06/25/25 16:31 Neut % (Auto) 74.8 % 06/25/25 16:31 Lymph % (Auto) 3.1 % 06/25/25 16:31 [place] % (Auto) 4.7 % 06/25/25 16:31 Eos % (Auto) 16.1 % 06/25/25 16:31 Baso % (Auto) 0.4 % 06/25/25 16:31 Neut # (Auto) 13.74 10^3/uL (1.8-7.7) H 06/25/25 16:31 Lymph # (Auto) 0.6 10^3/uL (0.8-4.8) L 06/25/25 16:31 [place] # (Auto) 0.9 10^3/uL (0.2-0.9) 06/25/25 16:31 Eos # (Auto) 3.0 10^3/uL (0.0-0.8) H 06/25/25 16:31 Baso # (Auto) 0.1 10^3/uL (0.0-0.1) 06/25/25 16:31 Nucleated RBC % (auto) 0 % 06/25/25 16: Nucleated RBCs # 0.0 /100WBC 06/25/25 16:31 Sodium 135 mmol/L (136-145) L 06/25/25 16:31 Potassium 4.9 mmol/L (3.5-5.1) 06/25/25 16: Chloride 102 mmol/L (98-107) 06/25/25 16: Carbon Dioxide 15 mmol/L (22-29) L 06/25/25 16:31 Anion Gap 22.9 (5-19) H 06/25/25 16:31 BUN 16 mg/dL (6-20) 06/25/25 16:31 Creatinine 1.2 mg/dL (0.7-1.2) 06/25/25 16:31 GFR Calculation 65.2 mL/min (90-130) L 06/25/25 16:31 Glucose 135 mg/dL (65-115) H 06/25/25 16:31 Calculated Osmolality 283 mOsm/kg (285-295) L 06/25/25 16:31 Lactic Acid 4.7 mmol/L (0.5-2.2) H* 06/25/25 16: Calcium 9.1 mg/dL (8.5-10.5) 06/25/25 16:31 Total Bilirubin 0.3 mg/dL (0.15-1.2) 06/25/25 16:31 AST 25 U/L (0-40) 06/25/25 16:31 ALT 21 U/L (0-41) 06/25/25 16:31 Alkaline Phosphatase 144 U/L (40-130) H 06/25/25 16:31 Creatine Kinase 210 U/L (39-308) 06/25/25 16:31 Total Protein 7.8 g/dL (6.6-8.7) 06/25/25 16:31 Albumin 4.6 g/dL (3.5-5.2) 06/25/25 16: Globulin 3.2 g/dL (1.3-4.6) 06/25/25 16:31 Urine Color Yellow (Yellow) 06/25/25 18:32 Urine Appearance Clear (CLEAR) 06/25/25 18:32 Urine pH 6.0 (5-7) 06/25/25 18:32 Ur Specific [place] 1.009 (1.005-1.030) 06/25/25 18:32 Urine Protein 1+ (Negative) A 06/25/25 18:32 Urine Glucose (UA) Negative (Normal) 06/25/25 18: Urine Ketones Trace (Negative) 06/25/25 18: Urine Blood 2+ (Negative) A 06/25/25 18: Urine Nitrate Negative (Negative) 06/25/25 18: Urine Bilirubin Negative (Negative) 06/25/25 18: Urine Urobilinogen 0.2 mg/dL (Negative) 06/25/25 18:32 Ur Leukocyte Esterase Negative (Negative) 06/25/25 18:32 Urine RBC 11-20 /hpf (0-2) H 06/25/25 18:32 Urine WBC 0-5 /hpf (0-5) 06/25/25 18:32 Ur Squamous Epith Cells 0-5 /hpf (0-5) 06/25/25 18:32 Amorphous Sediment Not Reportable 06/25/25 18:32 Urine Bacteria None seen /hpf (NONE) 06/25/25 18:32 Hyaline Casts 4.11 /lpf 06/25/25 18:32 Urine Yeast Trace /hpf 06/25/25 18:32 Salicylates < 0.3 mg/dL (3-10) L 06/25/25 16:31 Urine Opiates Screen Negative ng/mL (Negative) 06/25/25 18:32 Acetaminophen < 5.0 ug/mL (10-30) L 06/25/25 16:31 Ur Barbiturates Screen Negative ng/mL (Negative) 06/25/25 18:32 Ur Phencyclidine Scrn Negative ng/mL (Negative) 06/25/25 18:32 Ur Amphetamines Screen Negative ng/mL (Negative) 06/25/25 18: U Benzodiazepines Scrn Positive ng/mL (Negative) H 06/25/25 18:32 Urine Cocaine Screen Negative ng/mL (Negative) 06/25/25 18:32 U Marijuana (THC) Screen Positive ng/mL (Negative) H 06/25/25 18:32 Ethyl Alcohol < 10 mg/dL (0-10) 06/25/25 16:31 All radiology interpretation(s) finalized by discharge Discharge Plan Discharge Patient Disposition: Admitted As Inpatient Admit Provider: Miri Leon Clinical Impression: Epileptic seizure, AMS (altered mental status) Condition: Stable Coding Level of Care Code ED Ceramic Research Engineer for Micheal Sprague
--- NOTE | 2025-06-25 16:02 | ECG_ITS ---
[facility]25[facility]25 Pat Name: Tony Galo Department: Room: Gender: Male Tableman: : 1980 Requested By: Edis Grier Order Number: [id number] Yamileth MD: Henri Acevedo M.D. Measurements Intervals [place] Rate: 110 P: -21 IL: 153 QRS: -2 QRSD: 79 T: -3 QT: 281 QTc: 380 Interpretive Statements ECTOPIC ATRIAL TACHYCARDIA POSSIBLE ANTERIOR MYOCARDIAL INFARCTION , OF INDETERMINATE AGE [30 ms Q WAVE IN V3/V4, OR R < 0.2 mV IN V4] Peaked T waves, consider hyperkalemia Compared to ECG 05/05/2025 09:49:56 Myocardial infarct finding now present P wave axis and morphology has changed consistent with change in rhythm from sinus tachycardia to ectopic atrial tachycardia T waves now peaked Electronically Signed On 06-26-2025 21:22:56 CDT by Henri Acevedo M.D. [email or web address]
--- NOTE | 2025-06-25 16:05 | PC.NURSE ---
Addendum entered by Kayce Marshall RN 06/25/25 19:05: ATTEMPTED NUMEROUS TIMES FOR DE-ESCALATION VERBALLY, ATTEMPTED TO REDIRECT PATIENT, AND ATTEMPTED TO REORIENT PATIENT PRIOR TO RESTRAINTS. Original Note: AT APPROX 1605, PATIENT WAS PLACED IN SOFT RESTRAINTS BILATERALLY AT THE WRISTS DUE TO AMS AND COMBATIVE. PATIENT WAS PULLING WIRES OFF HIMSELF, ATTEMPTING TO GET OUT OF BED. PATIENT WAS A&OX0. CIRCULATION, TEMP, AND PULSE MONITORED AND APPROPRIATE. PROVIDER AWARE OF RESTRAINTS.
[2025-06-25] MEDS: levETIRAcetam 1,000 MG/100 ML PREMIX 400 MG IV (16:31)
[2025-06-25] MEDS: LORazepam 1 MG/0.5 ML injection IVP (16:31)
[2025-06-25 16:41] LABS: Hematocrit 43.1 % (37-53); Hemoglobin 15.10 g/dL (11.27-16.99); Mean Corpuscular HGB Conc 35.0 g/dL (30-55); Mean Corpuscular Hemoglobin 31.6 pg (27-33); Mean Corpuscular Volume 90.2 fl (82-101); Nucleated Red Blood Cells % 0 %; Platelet Count 257 10^3/cmm (157-399); Red Blood Count 4.78 10^6/uL (3.85-5.65); White Blood Count 18.34 10^3/uL (3.29-11.43)
[2025-06-25 16:56] LABS: Alanine Aminotransferase 21 U/L (0-41); Albumin Level 4.6 g/dL (3.5-5.2); Alkaline Phosphatase 144 U/L (40-130); Aspartate Amino Transferase 25 U/L (0-40); Blood Urea Nitrogen 16 mg/dL (6-20); Calcium 9.1 mg/dL (8.5-10.5); Carbon Dioxide 15 mmol/L (22-29); Chloride 102 mmol/L (98-107); Creatinine Clr Calc Pharmacy 69.2828; Globulin 3.2 g/dL (1.3-4.6); Glucose 135 mg/dL (65-115); Osmolality Calculated 283 mOsm/kg (285-295); Sodium 135 mmol/L (136-145); Total Protein 7.8 g/dL (6.6-8.7)
[2025-06-25 17:03] LABS: Acetaminophen < 5.0 ug/mL (10-30); Alcohol Level < 10 mg/dL (0-10); Anion Gap 22.9 (5-19); Potassium 4.9 mmol/L (3.5-5.1); Salicylate < 0.3 mg/dL (3-10)
[2025-06-25 17:04] LABS: Lactic Sepsis W/Reflex 4.7 mmol/L (0.5-2.2)
[2025-06-25] MEDS: midazolam 1 mg/mL INJ 2 mL 2 MG IVP ×2 (17:15→17:55)
[2025-06-25 17:23] LABS: Slide Review Slide Review Perform
[2025-06-25 18:24] LABS: Reflex Lactate Order REFLEX LACTIC ORDERD
[2025-06-25 19:06] LABS: Glucose Urine UA Negative (Normal); Nitrate Urine Negative (Negative); Specific Gravity, Urine 1.009 (1.005-1.030)
[2025-06-25 19:16] LABS: PCP Screen Urine Negative (Negative)
[2025-06-25] MEDS: thiamine 500 MG in sodium chloride 0.9% (100 ml) 100 ML 210 MG IV (19:33)
[2025-06-25 19:36] LABS: UA Slide Review UA Slide Review Perf
[2025-06-25 19:58] LABS: Lactic Acid level (Lactate) 2.3 mmol/L (0.5-2.2)
--- NOTE | 2025-06-25 20:36 | P.HP_ITS ---
Providers/Chief Complaint 2 Admitting Physician: Jose Vazquez MD Primary Care Provider: ALEXI Polk Chief Complaint: seizures History of Present Illness Tony Galo is a 45 year old male alcoholic reportedly not drinking for 72 hours but currently is his own historian and not conversant. He was given 10 mg of Valium by surface mount technology operator in the ambulance. Patient was not cooperative CT got another 1 mg lorazepam and 2 mg Versed followed by another [address] scan. IMPRESSION: No acute intracranial abnormality. 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 Previously described acute intracranial hemorrhagic focus in the right parieto-occipital lobe has since resolved. Patient is largely not responsive verbally but is moving all extremities and has answered he does not know or sworn at examiners. He is requiring a sitter currently Review of Systems 2 Narrative: Unobtainable Medications/Allergies Home Medications ?Medication ?Instructions ?Recorded ?Confirmed ?Last Taken ?Type lamotrigine 100 mg tablet 50 mg (1/2 x 100 mg) PO BID #90 05/29/25 Unknown Rx (Lamictal) tabs lamotrigine 200 mg tablet 200 mg PO BID #180 tabs 05/14 05/08 Unknown Rx Allergies Allergy/AdvReac Type Severity Reaction Status Date / Time No Known Allergies Allergy Verified 10/26/24 14:42 PFSH Acute 2 PFSH: Medical History (Updated 06/25/25 @ 20:40 by Jose Vazquez MD) Chronic kidney disease Traumatic brain injury Medical non-compliance Smoking addiction Alcohol use disorder Seizure disorder Surgical History No significant past surgical history Family History Other Unknown family medical history Social History Smoking and tobacco/nicotine status: current every day tobacco/nicotine user (1 PPD) Alcohol intake: unknown Substance/Drug Use: unknown Lives independently: Yes Household members: other Details: Brother Marital status: Unknown Vitals/I&O/Wt Last Vital Signs Temp 98.2 F 06/25/25 15:51 Pulse 118 H 06/25/25 20:14 Resp 16 06/25/25 16:33 BP 166/108 06/25/25 20:14 Pulse Ox 91 06/25/25 20:14 O2 Del Method Room Air 06/25/25 20:14 06/25/25 06/25/25 06/25/25 06:59 14:59 22:59 Intake Total 1205 / 1205 Balance 1205 / 1205 Weight last 48 hrs Weight 63.503 kg Physical Exam 2 Narrative: General well-developed thin male in no acute cardiopulmonary stress he is disoriented Neuro patient moves all extremities symmetrically pupils are equally round and reactive to light accommodation does not follow any commands. He is able to sit up in a Trendelenburg bed unaided and requires a sitter. CV regular rate and rhythm Lungs clear to auscultation bilaterally Abdomen positive bowel tones soft nontender Calves no tenderness cords pretrip edema Data 06/25/25 16:31 06/25/25 16:31 A&P Assessment and plan 1. Alcohol withdrawal seizure: Patient CT head negative except for old findings. No sign of bleeding. He is still very disoriented and at risk of injuring himself so will be sent to the ICU for close supervision. Lactic acid was elevated to receive a fluid bolus and repeat lab. CPK to be added to his lab to rule out rhabdomyolysis. 2. Delirium tremens: Start Precedex drip plus lorazepam 1 mg every 6 hours routine plus CIWA protocol for ICU. Patient will be resumed on his home lamotrigine 3. 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 Alcoholism: Patient has not been drinking for 72 hours and hopefully will remain abstinent 5. Medical non-compliance: Unable to membership counselor at this time. 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
[2025-06-25] MEDS: dexmedeTOMIDine 0.9 % NaCL 400 MCG/100 ML PREMIX IV (21:26)
[2025-06-25] MEDS: LORazepam 1 MG/0.5 ML injection 2 MG IVP (21:28)
[2025-06-25] MEDS: thiamine 100 mg/mL 2mL SDV IM (22:00)
[2025-06-25 22:59] LABS: Lactate (Lactic Acid level) 2.2 mmol/L (0.5-2.2); Lipase 14 U/L (13-60); Magnesium 2.4 mg/dL (1.7-2.3)
[2025-06-25] MEDS: haloperidol inj 5 mg/mL INJ 1 mL IM (22:59)
[2025-06-26] VITALS (90 sets, daily range): BP systolic 100–167; BP diastolic 74–118; PULSE 53–103; RESP 15–37; TEMP 36.2–36.9; O2SAT 70–100
[2025-06-26 01:49] LABS: Blood Urea Nitrogen 14 mg/dL (6-20); Calcium 8.3 mg/dL (8.5-10.5); Carbon Dioxide 12 mmol/L (22-29); Chloride 104 mmol/L (98-107); Creatinine Clr Calc Pharmacy 71.0802; Glucose 90 mg/dL (65-115); Osmolality Calculated 276 mOsm/kg (285-295); Sodium 133 mmol/L (136-145)
[2025-06-26 01:57] LABS: Anion Gap 21.2 (5-19); Potassium 4.2 mmol/L (3.5-5.1)
[2025-06-26] MEDS: LORazepam 1 MG/0.5 ML injection 2 MG IVP (02:15)
[2025-06-26] MEDS: LORazepam 1 MG/0.5 ML injection IVP ×4 (04:18→21:30)
[2025-06-26] MEDS: PHENobarbital 130 mg/mL SDV 1 mL 60 MG IVP ×4 (05:24→07:03)
[2025-06-26] MEDS: dexmedeTOMIDine 0.9 % NaCL 400 MCG/100 ML PREMIX 15.88 MCG IV (05:50)
[2025-06-26 06:36] LABS: Hematocrit 41.8 % (37-53); Hemoglobin 14.70 g/dL (11.27-16.99); Mean Corpuscular HGB Conc 35.2 g/dL (30-55); Mean Corpuscular Hemoglobin 30.9 pg (27-33); Mean Corpuscular Volume 88.0 fl (82-101); Nucleated Red Blood Cells % 0 %; Platelet Count 213 10^3/cmm (157-399); Red Blood Count 4.75 10^6/uL (3.85-5.65); White Blood Count 14.45 10^3/uL (3.29-11.43)
[2025-06-26 06:55] LABS: Alanine Aminotransferase 17 U/L (0-41); Albumin Level 4.1 g/dL (3.5-5.2); Alkaline Phosphatase 118 U/L (40-130); Anion Gap 17.1 (5-19); Aspartate Amino Transferase 38 U/L (0-40); Blood Urea Nitrogen 14 mg/dL (6-20); Calcium 9.2 mg/dL (8.5-10.5); Carbon Dioxide 21 mmol/L (22-29); Chloride 104 mmol/L (98-107); Creatinine Clr Calc Pharmacy 71.0802; Globulin 2.8 g/dL (1.3-4.6); Glucose 96 mg/dL (65-115); Osmolality Calculated 286 mOsm/kg (285-295); Potassium 4.1 mmol/L (3.5-5.1); Sodium 138 mmol/L (136-145); Total Protein 6.9 g/dL (6.6-8.7)
[2025-06-26] MEDS: dextrose 5%-sod chloride 0.9% 1,000 ML 100 ML IV ×2 (07:11→21:30)
--- NOTE | 2025-06-26 07:12 | PC.NURSE ---
On admission to unit patient was extremely anxious, combative, refusing to wear clothing, wearing soft medical restraints on bilateral upper extremeties, and voiding all over bed and himself. PRN lorazepam administered and started on precedex drip per orders. Patient continued to be very anxious, unable to establish second IV due to patient constantly moving and pulling at restraints. No history of diabetes, contacted Dr. Vazquez and approval given to place second IV in his leg and draw labs if needed. IV placed in right lower leg. Patient continued voiding copious amounts of urine, filled two briefs and puddled urine in bed with each void, and going at least twice per hour. Contacted Dr. Vazquez and made aware, order received for BMP, and to place rodrigues to monitor output but remove if there was danger of patient causing trauma to penis by pulling on it. Rodrigues placed and patient quickly repeatedly grabbed at rodrigues and attempted to pull it out. Rodrigues removed for patent safety, continued to void copious amounts of urine throughout shift.
[2025-06-26] MEDS: LORazepam 1 MG/0.5 ML injection 2 MG IM (09:02)
[2025-06-26] MEDS: PHENobarbital 130 mg/mL SDV 1 mL 60 MG IM (09:54)
--- NOTE | 2025-06-26 10:42 | PC.NURSE ---
Patient was not following commands in the morning,not being able to tell me their name, pulling at their restraints and trying to rip off their lines. Patient voided and it all pooled in the bed even though the patient had two briefs on. Patient was cleaned up. Patient was given ativan per [facility] protocol then also their scheduled ativan. Patient then calmed down and an IV was able to be started on them. Patient then started to wake up some and was able to tell this nurse their name and date of . Patient was able to tell this nurse where they were at. Patient was able to follow some commands. Restraints were stopped and taken off.
[2025-06-26] MEDS: cefTRIAXone 1,000 mg SDV 1000 MG IVP (13:21)
[2025-06-26] MEDS: thiamine 100 mg/mL 2mL SDV IV (14:33)
[2025-06-26 14:38] LABS: Procalcitonin 1.02 ng/mL (0-0.5)
--- NOTE | 2025-06-26 15:33 | CTR_ITS ---
PROCEDURE INFORMATION: Exam: CT Chest Without Contrast; Diagnostic Exam date and time: 06/26/2025 3:48 PM Age: 45 years old Clinical indication: Other: AMS, leukocytosis TECHNIQUE: Imaging protocol: Diagnostic computed tomography of the chest without contrast. Radiation optimization: All CT scans at this facility use at least one of these dose optimization techniques: automated exposure control; mA and/or kV adjustment per patient size (includes targeted exams where dose is matched to clinical indication); or iterative reconstruction. COMPARISON: CR (CHEST, ) 06/25/2025 4:31 PM RADIATION DOSE METRICS: Total DLP (mGy-cm): 422.37 FINDINGS: Evaluation of solid organs, viscera, and vasculature is limited without intravenous contrast. Lungs: Unremarkable. No consolidation. No masses. Pleural spaces: Unremarkable. No pneumothorax. No pleural effusion. Heart: Unremarkable. No cardiomegaly. No pericardial effusion. Coronary artery calcifications are absent. Lymph nodes: Unremarkable. No enlarged lymph nodes. Vasculature: Unremarkable. No aortic aneurysm. Bones/joints: No acute bony abnormality. Old rib fractures of right posterolateral ribs 7 through 9. Soft tissues: Unremarkable. PROCEDURE INFORMATION: Exam: CT Abdomen And Pelvis Without Contrast Exam date and time: 06/26/2025 3:48 PM Age: 45 years old Clinical indication: Other: AMS, leukocytosis TECHNIQUE: Imaging protocol: Computed tomography of the abdomen and pelvis without contrast. Radiation optimization: All CT scans at this facility use at least one of these dose optimization techniques: automated exposure control; mA and/or kV adjustment per patient size (includes targeted exams where dose is matched to clinical indication); or iterative reconstruction. COMPARISON: CR (CHEST, ) 06/25/2025 4:31 PM RADIATION DOSE METRICS: Total DLP (mGy-cm): 422.37 FINDINGS: Evaluation of solid organs, viscera, and vasculature is limited without intravenous contrast. Liver: Normal. No mass. Gallbladder and biliary ducts: Normal. No calcified stones. No ductal dilation. Pancreas: Normal. No ductal dilation. Spleen: Normal. No splenomegaly. Adrenal glands: Normal. No mass. Kidneys and ureters: Normal. No hydronephrosis. Stomach and bowel: Unremarkable. No obstruction. No mucosal thickening. Appendix: No evidence of appendicitis. Intraperitoneal space: Unremarkable. No free air. No significant fluid collection. Vasculature: Mild atherosclerotic calcifications of the normal-caliber abdominal aorta. Lymph nodes: Unremarkable. No enlarged lymph nodes. Urinary bladder: Unremarkable as visualized. Reproductive: Unremarkable as visualized. Bones/joints: Unremarkable. No acute fracture. Soft tissues: Unremarkable. CT/CT chest abdpel [id number] IMPRESSION: No acute finding in the chest. IMPRESSION: No acute abnormality in the abdomen or pelvis.
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
--- NOTE | 2025-06-26 16:08 | ECG_ITS ---
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 Measurements Intervals [place] Rate: 81 P: 55 AL: 146 QRS: 54 QRSD: 78 T: 64 QT: 356 QTc: 414 Interpretive Statements SINUS RHYTHM POSSIBLE LEFT ATRIAL ENLARGEMENT [-0.1mV P-WAVE IN V1/V2] TALL T-WAVES, SUGGESTS HYPERKALEMIA Compared to ECG 06/25/2025 16:02:54 Sinus tachycardia no longer present Myocardial infarct finding no longer present Electronically Signed On 07-06-2025 09:33:05 CDT by Salvatore Pepper M.D. [email or web address]
--- NOTE | 2025-06-26 17:43 | PC.NURSE ---
Patient was unable to perform the whole NIH Stroke Scale due to patient being lethargic and uncooperative. This nurse performed all tests that the patient was able to do.
--- OUTSIDE RECORDS SUMMARY | 2025-06-26 18:02 | XMS_ITS | Clinical Summary ---
Author Organization [facility] Address [address] [place] [address] Phone Care Team Providers Care Signaling Design Engineer Name Role Phone Unavailable Primary Care Provider Unavailabl e Allergies Active Allergy Reactions Criticality Noted Date Comments Hymenoptera Allergenic Extract Swelling Low 01/28 Medications nicotine (NICODERM CQ) 21 mg/24 hr Transdermal patch Apply 1 Patch to skin as directed every 24 hours. Active lamoTRIgine (LAMICTAL) 200 mg Oral tablet Take 200 mg by mouth 2 times daily. 1 Active phenytoin sodium extended release (DILANTIN) 200 mg Oral Cap Take 1 Cap by mouth 2 times daily. 60 Cap 0 1 Active cloNIDine (CATAPRES) 0.3 mg Oral tablet Take 1 Tab by mouth 3 times daily. 90 Tab 0 1 Active NIFEdipine SR 24 hour (ADALAT CC) 30 mg Oral tablet Take 1 Tab by mouth every 6 hours. 120 Tab 0 1 Active carvedilol (COREG) 12.5 mg Oral tablet Take 1 Tab by mouth every 12 hours. 60 Tab 11 1 Active lisinopril (PRINIVIL) 5 mg Oral tablet Take 1 Tab by mouth daily. 30 Tab 11 1 Active Active Problems Problem Noted Date Diagnosed Date Acute renal failure 02/03/2011 Acute respiratory failure 02/02/2011 PRES (posterior reversible encephalopathy syndro me) 02/02/2011 Cardiomyopathy 02/02/2011 Hypertension 02/02/2011 Family History Medical History Relation Name Comments Healthy Brother 1 Healthy Brother 2 Lung Cancer Father Hypertension Mother Stroke Mother Relation Name Status Comments Brother 1 Brother 2 Father Mother Social History Tobacco Use Types Packs/Day Years Used Date Smoking Tobacco: Former Cigarettes 1 1 0 01/25/2010 - 01/25/2011 Smokeless Tobacco: Never Alcohol Use Standard Drinks/Week Comments Yes 15 (1 standard drink = 0.6 oz pure alcohol) occasional - says he hasn't had a drink recently Sex and Gender Information Value Date Recorded Sex Assigned at Not on file Legal Sex Male 7:17 AM [employer] Gender Identity Not on file Sexual Orientation Not on file Last Filed Vital Signs Vital Sign Reading Time Taken Comments Blood Pressure 125/84 02/08/2011 3:47 PM CDT Pulse 73 02/08/2011 3:47 PM CDT Temperature 36.3 C (97.4 F) 02/08/2011 3:47 PM CDT Respiratory Rate 18 02/08/2011 3:47 PM CDT Oxygen Saturation 95% 02/08/2011 3:47 PM CDT Inhaled Oxygen Concentration - - Weight 59 kg (130 lb) 02/08/2011 5:00 AM CDT Height 167.6 cm (5' 6 ) 02/02/2011 1:32 PM CDT Body Mass Index 20.98 02/02/2011 1:32 PM CDT Plan of Treatment Health Maintenance Due Date Last Done Comments DTAP/TDAP/TD VACCINES (1 - Tdap) 1998 HEPATITIS B VACCINES (1 of 3 - 19+ 3-dose series) 1998 COLORECTAL SCREENING 2024 Colorectal Cancer Screening 2024 FIT-DNA Q 3 years 2024 FIT/FOBT Q 1 year 2024 Flex Sig/CT Colonography Q 5 years 2024 INFLUENZA VACCINE (#1) 2025 HPV VACCINES Aged Out No longer eligi ble based on patient's age to complete this topic Advance Directives For more information, please contact: [phone] * Full Code (Latest Code Status on File) Date Activated Date Inactivated Comments 02/05/2011 7:10 AM 02/08/2011 7:30 PM * Full Code Date Activated Date Inactivated Comments 02/01/2011 3:31 PM 02/05/2011 7:10 AM * Full Code Date Activated Date Inactivated Comments 01/28/2011 4:00 PM 01/30/2011 2:11 PM
--- OUTSIDE RECORDS SUMMARY | 2025-06-26 18:02 | XMS_ITS | Clinical Summary ---
Author Organization [facility] Address [address] Blackmann: Epic Prelude ADT LELE CASTILLO [address] Care Team Providers Care Utility Pipe Layer Name Role Phone Unavailable Primary Care Provider Unavailabl e Allergies Active Allergy Reactions Criticality Noted Date Comments Hymenoptera Allergenic Extract Swelling Low 01/28 Medications No known medications Active Problems Problem Noted Date Diagnosed Date Altered mental status 05/07/2025 Observed seizure-like activity 05/05/2025 Alcohol use disorder 05/05/2025 Seizure disorder 05/05/2025 Acute renal failure 02/03/2011 PRES (posterior reversible encephalopathy syndro me) 02/02/2011 Hypertension 02/02/2011 Acute hypoxic respiratory failure 02/02/2011 Cardiomyopathy 02/02/2011 Encounters Date Type Department Care Team Description 06/11/2025 External Device Data [facility] ABSTRACTION Provider, Abstract 06/11/2025 External Device Data [facility]STRACTION Provider, Abstract 06/11/2025 External Device Data [facility]STRA[facility] Provider, Abstract 06/04/2025 External Device Data [facility]STRACTION Provider, Abstract 05/07/2025 External Device Data [facility]STRACTION Provider, Abstract 05/07/2025 External Device Data [facility]STRACTION Provider, Abstract 05/07/2025 External Device Data [facility]STRACTION Provider, Abstract 05/05/2025 1:28 PM CDT - 05/07/2025 6:00 PM CDT Hospital Encounter [facility] 6A Medical Intensive Care [address] [place] [address] Jenna Bateman DO Saeed, Mariam, MD Meyer III, Magnus O, DO Observed seizure-like activity (CMS/HCC) Discharge Disposition: Left Against Medical Advice from Last 3 Months Family History Medical History Relation Name Comments Healthy Brother 1 Healthy Brother 2 Lung Cancer Father Hypertension Mother Stroke Mother Relation Name Status Comments Brother 1 Brother 2 Father Mother Social History Tobacco Use Types Packs/Day Years Used Date Smoking Tobacco: Former Cigarettes Q uit: 01/25/2011 Smokeless Tobacco: Never Alcohol Use Standard Drinks/Week Comments Yes 15 (1 standard drink = 0.6 oz pu re alcohol) Sex and Gender Information Value Date Recorded Sex Assigned at Not on file Legal Sex Male 1:55 PM [employer] Gender Identity Not on file Sexual Orientation Not on file Last Filed Vital Signs Vital Sign Reading Time Taken Comments Blood Pressure 134/91 05/07/2025 5:45 PM CDT Pulse 80 05/07/2025 5:45 PM CDT Temperature 37.3 C (99.1 F) 05/07/2025 3:00 PM CDT Respiratory Rate 22 05/07/2025 5:45 PM CDT Oxygen Saturation 97% 05/07/2025 5:45 PM CDT Inhaled Oxygen Concentration - - Weight 49 kg (108 lb 0.4 oz) 05/07/2025 9:00 AM CDT Height - - Body Mass Index - - Plan of Treatment Health Maintenance Due Date Last Done Comments HEPATITIS B VACCINES (1 of 3 - 19+ 3-dose series) 1998 DTAP/TDAP/TD VACCINES (1 - Tdap) 05/18/2009 05/17/20 09 COLORECTAL SCREENING 2024 Colorectal Cancer Screening 2024 FIT-DNA Q 3 years 2024 FIT/FOBT Q 1 year 2024 Flex Sig/CT Colonography Q 5 years 2024 INFLUENZA VACCINE (#1) 2025 HPV VACCINES Aged Out No longer eligi ble based on patient's age to complete this topic Procedures Procedure Name Priority Date/Time Associated Diagnosis Comments TELEMETRY REPORT 05/08/2025 2:39 PM CDT POC GLUCOSE Routine 05/07/2025 12:07 PM CDT POC GLUCOSE Routine 05/07/2025 8:30 AM CDT POC GLUCOSE Routine 05/07/2025 2:39 AM CDT BASIC METABOLIC PANEL Routine 05/07/2025 2:39 AM CDT CBC WITH DIFFERENTIAL Routine 05/07/2025 2:39 AM CDT POC GLUCOSE Routine 05/06/2025 11:56 PM CDT POC GLUCOSE Routine 05/06/2025 9:54 PM CDT POC GLUCOSE Routine 05/06/2025 5:23 PM CDT AMMONIA LEVEL Routine 05/06/2025 11:24 AM CDT XR ABDOMEN FOR FEEDING TUBE 1 VW Stat 05/06/2025 8:37 AM CDT MAGNESIUM LEVEL Routine 05/06/2025 5:07 AM CDT BASIC METABOLIC PANEL Routine 05/06/2025 5:07 AM CDT CBC WITH DIFFERENTIAL Routine 05/06/2025 5:07 AM CDT POC GLUCOSE Routine 05/05/2025 9:21 PM CDT LAMOTRIGINE LEVEL Routine 05/05/2025 6:0 2 PM CDT POC GLUCOSE Routine 05/05/2025 4:59 PM CDT EEG VIDEO MONITORING Routine 05/05/2025 4:50 PM CDT POC LACTIC ACID Stat 05/05/2025 2:27 PM CDT BLOOD GAS ARTERIAL Stat 05/05/2025 2: 27 PM CDT Acute renal failure, unspecified acute renal failure type Alcoholic cardiomyopathy (CMS/HCC) Acute respiratory failure, unspecified whether with hypoxia or hypercapnia (CMS/HCC) Hypertension, unspecified type PRES (posterior reversible encephalopathy syndrome) DRUG SCREEN, URINE Stat 05/05/2025 2: 22 PM CDT ETHANOL LEVEL Stat 05/05/2025 2:20 PM CDT MAGNESIUM LEVEL Stat 05/05/2025 2:20 PM CDT COMPREHENSIVE METABOLIC PANEL Stat 05/05/2025 2:20 PM CDT PROTIME-INR Stat 05/05/2025 2:20 PM CDT CBC WITH DIFFERENTIAL Stat 05/05/2025 2:20 PM CDT XR CHEST PA OR AP 1 VW Stat 05/05/2025 2:16 PM CDT VENTILATOR CHECKS Stat 05/05/2025 2:0 2 PM CDT CHECK CUFF PRESSURE Stat 05/05/2025 2 :02 PM CDT MECHANICAL VENT PER RT Stat 05/05/2025 2:02 PM CDT CTA HEAD AND NECK W AND/OR WO CONTRAST Stat 05/05/2025 1:59 PM CDT from Last 3 Months Results * TELEMETRY REPORT (05/08/2025 2:39 PM CDT) us Provider Scanning ECG ORDERABLES Final Result * POC GLUCOSE (05/07/2025 12:07 PM CDT) Only the most recent of8 resultswithin the time period is included. GLUCOSE POC 85 74 - 99 mg/dL 05/07/2025 12:[address] [facility] SPECIMEN SOURCE, GLUCOSE POC Capillary 05/07/2025 12:[address] [facility] Blood, whole 05/07/2025 12:0 7 PM CDT 05/07/2025 12:39 PM CDT us Amilcar Veras III, DO POINT OF CARE TESTING Fin al Result [facility] CLIA # [id number] [address] [place] [address] [place] [address] * (ABNORMAL) CBC WITH DIFFERENTIAL (05/07/2025 2:39 AM CDT) Only the most recent of3 resultswithin the time period is included. [facility] WBC 10.8 4.5 - 11.0 K/uL 05/07/2025 2:[address] [facility] RBC 4.10(L) 4.60 - 6.20 M/uL 05/07/2025 2:[address] [facility] HEMOGLOBIN 13.3(L) 14.0 - 18.0 g/dL 05/07/2025 2:51 AM [facility] HEM[facility]IT 37.6(L) 41.0 - 53.0 % 05/07/2025 2:51 AM [facility] MCV 91.7 84.0 - 103.0 fL 05/07/2025 2:51 AM [facility] MCH 32.4 27.0 - 34.0 pg 05/07/2025 2:51 AM [facility] MCHC 35.4(H) 30.0 - 35.0 g/dL 05/07/2025 2:51 AM [facility] PLATELETS 218 140 - 440 K/uL 05/07/2025 2:51 AM [facility] MPV 8.8(L) 8.9 - 12.8 fL 05/07/2025 2:51 AM [facility] RDW 14.8(H) 11.0 - 14.5 % 05/07/2025 2:51 AM [facility] RDW-STDEV 50.2 37.0 - 54.0 fL 05/07/2025 2:51 AM [facility] NEUTROPHILS 79(H) 42 - 75 % 05/07/2025 2:51 AM [facility] LYMPHOCYTES 13(L) 24 - 44 % 05/07/2025 2:51 AM [facility] MONOCYTES 7 2 - 10 % 05/07/2025 2:[address] [facility] EOSINOPHILS 0 0 - 7 % 05/07/2025 2:[address] [facility] BASOPHILS 0 0 - 1 % 05/07/2025 2:[address] [facility] IMMATURE GRANULOCYTES 1 0 - 2 % 05/07/2025 2:[address] [facility] NEUTROPHIL ABSOLUTE 8.54(H) 2.00 - 8.00 K/uL 05/07/2025 2:[address] [facility] LYMPHOCYTE ABSOLUTE 1.39 1.20 - 4.00 K/uL 05/07/2025 2:[address] [facility] MONOCYTE ABSOLUTE 0.71(H) 0.10 - 0.60 K/uL 05/07/2025 2:[address] [facility] EOSINOPHIL ABSOLUTE 0.04 0.00 - 0.70 K/uL 05/07/2025 2:[address] [facility] BASOPHILS ABSOLUTE 0.04 0.00 - 0.20 K/uL 05/07/2025 2:[address] [facility] IMMATURE GRANULOCYTES ABSOLUTE 0.05 0.00 - 0.10 K/uL 05/07/2025 2:[address] [facility] SMEAR REVIEWED: NA - Not Applicable 05/07/2025 2:[address] [facility] Blood Venipuncture / Unknown 05/07/2025 2:39 AM CDT 05/07/2025 2:45 AM CDT us Rachel Rodriguez CUSTOMER RELATIONS REPRESENTATIVE- HEMATOLOGY ORDERABLE S Final Result [facility] CLIA # [id number] [address] [address] [place] [address] * (ABNORMAL) BASIC METABOLIC PANEL (05/07/2025 2:39 AM CDT) Only the most recent of2 resultswithin the time period is included. SODIUM 135(L) 136 - 145 mmol/L 05/07/2025 3:19 AM [facility] POTASSIUM 4.7 3.5 - 5.1 mmol/L 05/07/2025 3:19 AM [facility] Comment:Moderate hemolysis p resent. Can cause significant falsely elevated result. Redraw if indicated. CHLORIDE 101 98 - 107 mmol/L 05/07/2025 3:19 AM [facility] CO2 22 22 - 29 mmol/L 05/07/2025 3:19 AM [facility] CALCIUM 9.0 8.6 - 10.0 mg/dL 05/07/2025 3:19 AM [facility] BUN 15 6 - 20 mg/dL 05/07/2025 3:19 AM [facility] CREATININE 0.89 0.67 - 1.17 mg/dL 05/07/2025 3:19 AM [facility] GLUCOSE 89 74 - 99 mg/dL 05/07/2025 3:19 AM [facility] GFR >60 >=60 mL/min/1.7 3 sq meter 05/07/2025 3:19 AM [facility] Comment:eGFR calculated with 2020 CKD-EPI equation. Vegetarian diet, extremely high or low muscle mass, and may affect results. Cystatin C with Glomerular Filtration Rate is a suitable alternative for these patients. ANION GAP 12 9 - 20 mmol/L 05/07/2025 3:[address] [facility] Blood Venipuncture / Unknown 05/07/2025 2:39 AM CDT 05/07/2025 2:45 AM CDT Rachel Rodriguez CUSTOMER RELATIONS REPRESENTATIVE- CHEMISTRY ORDERABLES Final Result [facility] CLIA # [id number] [address] [address] [place] [address] * AMMONIA LEVEL (05/06/2025 11:24 AM CDT) AMMONIA 27.2 16.0 - 60.0 umol/L 05/06/2025 12:10 PM CDT [facility] [employer] [facility] Blood, venous Venipuncture / Unknown 05/06/2025 11:24 AM CDT 05/06/2025 11:32 AM CDT us Amilcar O Veras III, DO CHEMISTRY ORDERABLES Sintia l Result [facility] CLIA # [id number] [address] [facility] [place] [address] * XR ABDOMEN FOR FEEDING TUBE 1 VW (05/06/2025 8:37 AM CDT) Anatomical Region Laterality Modality Abdomen Computed Radiogr aphy 05/06/2025 8:37 AM CDT Impressions 05/06/2025 9:39 AM CDT IMPRESSION: Please see below. Exam: XR ABDOMEN FOR FEEDING TUBE 1 VW Date/Time of Exam: 05/06/2025 8:37 AM Reason For Exam: Check Tube Placement. Diagnosis: Acute renal failure, unspecified acute renal failure type; Alcoholic cardiomyopathy (CMS/HCC); Acute respiratory failure, unspecified whether with hypoxia or hypercapnia (CMS/HCC); Hypertension, unspecified type; PRES (posterior reversible encephalopathy syndrome); Seizure (CMS/HCC); Endotracheally intubated; Altered mental status, unspecified altered mental status type. Comparison: None FINDINGS: Single projection shows nasogastric tube terminating in the distal gastric body. No gastric distention. Narrative Procedure Note Yony Malhotra DO - 05/06/2025 IMPRESSION: Please see below. Exam: XR ABDOMEN FOR FEEDING TUBE 1 VW Date/Time of Exam: 05/06/2025 8:37 AM Reason For Exam: Check Tube Placement. Diagnosis: Acute renal failure, unspecified acute renal failure type; Alcoholic cardiomyopathy (CMS/HCC); Acute respiratory failure, unspecified whether with hypoxia or hypercapnia (CMS/HCC); Hypertension, unspecified type; PRES (posterior reversible encephalopathy syndrome); Seizure (CMS/HCC); Endotracheally intubated; Altered mental status, unspecified altered mental status type. Comparison: None FINDINGS: Single projection shows nasogastric tube terminating in the distal gastric body. No gastric distention. us Amilcar O Veras III, DO DIAGNOSTIC IMAGING ORDERA BLES Final Result * (ABNORMAL) MAGNESIUM LEVEL (05/06/2025 5:07 AM CDT) Only the most recent of2 resultswithin the time period is included. MAGNESIUM 2.7(H) 1.6 - 2.6 mg/dL 05/06/2025 6:05 AM CDT [facility] [employer] [facility] Blood Venipuncture / Unknown 05/06/2025 5:07 AM CDT 05/06/2025 5:32 AM CDT us Amilcar O Veras III, DO CHEMISTRY ORDERABLES Sintia l Result [facility] CLIA # [id number] [address] [place] [address] * LAMOTRIGINE LEVEL (05/05/2025 6:02 PM CDT) LAMOTRIGINE LEVEL 8.5 2.5 - 15.0 mcg/mL 05/10/2025 9:08 AM CDT [facility] Comment: (Note) This test was developed and its analytical performance characteristics have been determined by [facility]. It has not been cleared or approved by the FDA. This assay has been validated pursuant to the CLIA regulations and is used for clinical purposes. [employer] [facility] [address] [address],[address] [facility] [address] Matthew Ray MD, PhD Blood Venipuncture / Unknown 05/05/2025 6:02 PM CDT 05/05/2025 6:06 PM CDT Narrative [facility] - 05/10/2025 9:08 AM CDT Performing Organization Information: Site ID: [id number] Name: [facility] Address: [address] [place] [address], [address] [place] [address] Director: Matthew Ray MD,PhD Rachel Rodriguez [facility] CHEMISTRY ORDERABLES Final Result Performing Organization Address [facility] Co de Phone Number [facility] * POC LACTIC ACID (05/05/2025 2:27 PM CDT) Pathologist [facility] LACTIC ACID POC 1.5 <=2.0 mmol/L 05/05/2025 2:[address] [facility] SPECIMEN SOURCE, GASES POC Arterial 05/05/2025 2:27 PM CDT [facility] [employer] [facility] SITE POC ART PUNCT 05/05/2025 2:[address] [facility] Blood 05/05/2025 2:27 PM CDT 05/05/2025 2:28 PM CDT [facility] [employer] [facility] - 05/05/2025 2:27 PM CDT References ranges displayed are for Arterial samples. Jenna Bateman DO POINT OF CARE TESTING Final Resu lt Performing Organization Address [facility]/ZIP Co de Phone Number [facility] CLIA # [id number] [address] [place] [address] [place] [address] * (ABNORMAL) BLOOD GAS ARTERIAL (05/05/2025 2:27 PM CDT) Pathologist [facility] PH BLOOD POC 7.42 7.35 - 7.45 05/05/2025 2:[address] [facility] PCO2 POC 40 35 - 45 mm Hg 05/05/2025 2:[address] [facility] PO2 POC 98 80 - 105 mm Hg 05/05/2025 2:27 PM [facility] HCO3 (CALC) POC 26 22 - 26 mmol/L 05/05/2025 2:27 PM [facility] HEMOGLOBIN POC 15.8 12.0 - 18.0 g/dL 05/05/2025 2:27 PM [facility] BASE EXCESS POC 1 -2 - 3 mmol/L 05/05/2025 2:27 PM [facility] O2 SATURATION POC 99(H) 95 - 98 % 2:27 PM [facility] SODIUM POC 130(L) 138 - 146 mmol/L 05/05/2025 2:27 PM [facility] POTASSIUM POC 4.5 3.5 - 4.9 mmol/L 05/05/2025 2:27 PM [facility] HEMATOCRIT POC 47 38 - 51 % 05/05/2025 2:27 PM [facility] PH TEMP CORRECT 7.42 7.35 - 7.45 05/05/2025 2:27 PM [facility] PCO2 TEMP CORRECT 40 35 - 45 mm Hg 05/05/2025 2:27 PM [facility] PO2 TEMP CORRECT 98 80 - 105 mm Hg 05/05/2025 2:27 PM [facility] SPECIMEN SOURCE, GASES POC Arterial 05/05/2025 2:27 PM [facility] CALCIUM IONIZED POC 4.6(L) 4.8 - 5.2 mg/dL 05/05/2025 2:27 PM [facility] TCO2 (CALC) POC 27 23 - 27 mmol/L 05/05/2025 2:27 PM [facility] FIO2 30.0 21.0 - 100.0 % 05/05/2025 2:27 PM [facility] Comment:FIO2 values reported <21.0 indicate O2 flow in Liters/minute. Values >/= 21.0 indicate percent O2. P/F RATIO POC 327 05/05/2025 2:27 PM [facility] Comment: P/F Ratio Interpretation ARDS SEVERITY PaO2/FiO2 Mild 200-300 Moderate 100-200 Severe <100 [facility] SITE POC ART PUNCT 05/05/2025 2:[address] [facility] VENT MODE POC TUBE 05/05/2025 2:[address] [facility] Blood, arterial 05/05/2025 2 :27 PM CDT 05/05/2025 2:28 PM CDT us Jenna Bateman DO ABG ORDERABLES Final Result [facility] CLIA # [id number] [address] [place] [address] * (ABNORMAL) DRUG SCREEN, URINE (05/05/2025 2:22 PM CDT) [facility] AMPHETAMINE QUAL, URINE Negative Negative 05/05/2025 3:[address] [facility] BARBITURATE QUAL, URINE Negative Negative 05/05/2025 3:[address] [facility] BENZODIAZEPINE QUAL, URINE Presumptive Positive(A) Negative 05/05/2025 3:[address] [facility] COCAINE QUAL URINE Negative Negative 05/05/2025 3:[address] [facility] OPIATE QUAL, URINE Negative Negative 05/05/2025 3:[address] [facility] CANNABINOIDS QUAL, URINE Presumptive Positive(A) Negative 05/05/2025 3:[address] [facility] OXYCODONE QUAL, URINE Negative Negative 05/05/2025 3:[address] [facility] METHADONE QUAL, URINE Negative Negative 05/05/2025 3:[address] [facility] FENTANYL QUAL, URINE Negative Negative 05/05/2025 3:[address] [facility] CREATININE, URINE 31.3(L) 40.0 - 278.0 mg/dL 05/05/2025 3:[address] [facility] Comment:Reference Range vari es with fluid intake and diet. Urine URINE SPECIMEN OBTAINED BY CLEAN CATCH PROCEDURE / Unknown Collection / Unknown 05/05/2025 2:22 PM CDT 05/05/2025 2:26 PM CDT [facility] - 05/05/2025 3:03 PM CDT This test is a qualitative screen. The presumptive positive results should not be used for legal purposes. If confirmation of results is desired, the lab must be contacted without delay. Drug Ref. Range Screening Threshold Amphetamines Negative 500 ng/mL Barbiturates Negative 200 ng/mL Benzodiazepines Negative 100 ng/mL Cannabinoids Negative 50 ng/mL Cocaine Metabolite Negative 300 ng/mL Opiate Negative 300 ng/mL Oxycodone Negative 100 ng/mL Methadone Negative 300 ng/mL Fentanyl Negative 5 ng/mL us Jenna Bateman DO URINE ORDERABLES Final Result Performing Organization Address City/State/[facility] Co de Phone Number [facility] CLIA # [id number] [address] [place] [address] * PROTIME-INR (05/05/2025 2:20 PM CDT) PROTIME 13.9 12.7 - 14.9 Seconds 05/05/2025 2:[address] [facility] INR 1.0 0.8 - 1.2 05/05/2025 2:[address] [facility] Blood Venipuncture / Unknown 05/05/2025 2:20 PM CDT 05/05/2025 2:26 PM CDT [facility] - 05/05/2025 2:39 PM CDT Expected Values for INR: DVT/PE Goal INR 2.5; range 2.0 - 3.0 Valve Replacement Tissue Goal INR 2.5; range 2.0 - 3.0 Valve Replacement Mechanical Goal INR 3.0; range 2.5 - 3.5 POST-NH Goal INR 2.5; range 2.0 - 3.0 or Goal INR 3.0; range 2.5 - 3.5 Atrial Fibrillation Goal INR 2.5; range 2.0 - 3.0 Ischemic Stroke Goal INR 2.5; range 2.0 - 3.0 Jenna Bateman DO HEMATOLOGY ORDERABLES Final Resu lt Performing Organization Address [facility] de Phone Number [facility] [employer] [facility] CLIA # [id number] [facility] [address] [address] * ETHANOL LEVEL (05/05/2025 2:20 PM CDT) Pathologist [facility] ETHANOL <10.10 <10.10 mg/dL 05/05/2025 3:[address] [facility] ETHANOL % <0.01 <=0.01 %w/v 05/05/2025 3:[address] [facility] Blood Venipuncture / Unknown 05/05/2025 2:20 PM CDT 05/05/2025 2:28 PM CDT Jenna Bateman DO CHEMISTRY ORDERABLES Final Resul t Performing Organization Address [facility] de Phone Number [facility] [employer] [facility] CLIA # [id number] [address] [place] [phone] * (ABNORMAL) COMPREHENSIVE METABOLIC PANEL (05/05/2025 2:20 PM CDT) SODIUM 133(L) 136 - 145 mmol/L 05/05/2025 3:[address] [facility] POTASSIUM 4.7 3.5 - 5.1 mmol/L 05/05/2025 3:[address] [facility] CHLORIDE 96(L) 98 - 107 mmol/L 05/05/2025 3:[address] [facility] CO2 23 22 - 29 mmol/L 05/05/2025 3:05 PM [facility] CALCIUM 9.0 8.6 - 10.0 mg/dL 05/05/2025 3:05 PM [facility] BUN 11 6 - 20 mg/dL 05/05/2025 3:05 PM [facility] CREATININE 1.15 0.67 - 1.17 mg/dL 05/05/2025 3:05 PM [facility] GLUCOSE 125(H) 74 - 99 mg/dL 05/05/2025 3:05 PM [facility] TOTAL PROTEIN 7.1 6.4 - 8.3 g/dL 05/05/2025 3:05 PM [facility] ALBUMIN 4.1 3.5 - 5.2 g/dL 05/05/2025 3:05 PM [facility] BILIRUBIN TOTAL 0.9 0.0 - 1.0 mg/dL 05/05/2025 3:05 PM [facility] ALKALINE PHOSPHATASE 162(H) 40 - 129 U/L 05/05/2025 3:05 PM [facility] AST 26 10 - 50 U/L 05/05/2025 3:05 PM [facility] ALT 12 <=50 U/L 05/05/2025 3:05 PM [facility] GFR >60 >=60 mL/min/1.7 3 sq meter 05/05/2025 3:05 PM [facility] Comment:eGFR calculated with 2020 CKD-EPI equation. Vegetarian diet, extremely high or low muscle mass, and may affect results. Cystatin C with Glomerular Filtration Rate is a suitable alternative for these patients. ANION GAP 14 9 - 20 mmol/L 05/05/2025 3:05 PM [facility] Blood Venipuncture / Unknown 05/05/2025 2:20 PM CDT 05/05/2025 2:28 PM CDT us Jenna Bateman DO CHEMISTRY ORDERABLES Final Resul t [facility] # [id number] [address] [place] [address] * XR CHEST PA OR AP 1 VW (05/05/2025 2:16 PM CDT) Anatomical Region Laterality Modality Chest Computed Radiogr aphy 05/05/2025 2:16 PM CDT Impressions 05/05/2025 2:49 PM CDT IMPRESSION: No evidence of acute cardiopulmonary disease. Narrative 05/05/2025 2:49 PM CDT EXAM: XR CHEST PA OR AP 1 VW DATE/TIME OF EXAM: 05/05/2025 2:16 PM REASON FOR EXAM: Tube Placement DIAGNOSIS: Acute renal failure, unspecified acute renal failure type; Alcoholic cardiomyopathy (CMS/HCC); Acute respiratory failure, unspecified whether with hypoxia or hypercapnia (CMS/HCC); Hypertension, unspecified type; PRES (posterior reversible encephalopathy syndrome) COMPARISON: None. FINDINGS: - Lines/tubes: ET tube tip 4 cm above the shey. - Cardiomediastinal: Contours are within normal limits. - Lungs/pleura: Radiographically the lungs appear clear. Hemidiaphragms are well visualized; no appreciable pleural effusion or pneumothorax. - Bones and soft tissues: No acute abnormalities. Multiple remote right lateral rib fractures. Remote right clavicular fracture. - Additional comments: None. Procedure Note Feliz Meraz MD - 05/05/2025 EXAM: XR CHEST PA OR AP 1 VW DATE/TIME OF EXAM: 05/05/2025 2:16 PM REASON FOR EXAM: Tube Placement DIAGNOSIS: Acute renal failure, unspecified acute renal failure type; Alcoholic cardiomyopathy (CMS/HCC); Acute respiratory failure, unspecified whether with hypoxia or hypercapnia (CMS/HCC); Hypertension, unspecified type; PRES (posterior reversible encephalopathy syndrome) COMPARISON: None. FINDINGS: - Lines/tubes: ET tube tip 4 cm above the shey. - Cardiomediastinal: Contours are within normal limits. - Lungs/pleura: Radiographically the lungs appear clear. Hemidiaphragms are well visualized; no appreciable pleural effusion or pneumothorax. - Bones and soft tissues: No acute abnormalities. Multiple remote right lateral rib fractures. Remote right clavicular fracture. - Additional comments: None. IMPRESSION: No evidence of acute cardiopulmonary disease. Jenna Bateman DO DIAGNOSTIC IMAGING ORDERABLES Fi nal Result * CTA HEAD AND NECK W AND/OR WO CONTRAST (05/05/2025 1:59 PM CDT) Anatomical Region Laterality Modality Head Computed Tomogra phy 05/05/2025 1:43 PM CDT Impressions 05/05/2025 2:34 PM CDT IMPRESSION: Please see below. Exam: CTA HEAD AND NECK W AND/OR WO CONTRAST Date/Time of Exam: 05/05/2025 1:59 PM Reason For Exam: Stroke, hemorrhagic. Diagnosis: See Reason for Exam. Technique: CTA of the head and neck was performed prior to and following the administration of intravenous contrast. Post-processing was performed, including sagittal and coronal reformations and 3-D reconstruction. Contrast: IOPAMIDOL 61 % INTRAVENOUS SOLUTION (MULTI-DOSE BULK PACK) Given:180 mL Findings: Comparison 02/02/2011. Encephalomalacia within the right parietal cortex, likely from previous insult. No acute intracranial hemorrhage or loss of ly-white matter differentiation. No hydrocephalus. Basal cisterns are patent. No acute osseous abnormality. Unchanged left temporal osteoma. The paranasal sinuses and mastoid air cells are clear. The orbits are intact. Intracranial internal carotid arteries are patent. The ACAs are patent. The MCAs are provided. The intradural vertebral arteries are patent. The basilar artery is patent. pipe buffer are patent bilaterally. Three-vessel origin of the aortic arch. The common carotid arteries are patent. The carotid bifurcations are unremarkable. No significant stenosis of the internal carotid arteries. There is linear soft tissue arising from the proximal left ICA. The origins of the vertebral arteries are unremarkable. Vertebral arteries are patent throughout their course in the neck. Lung apices demonstrate no acute abnormality. Soft tissues in the neck demonstrate no acute abnormality. No acute fracture or aggressive osseous lesion. Multilevel degenerative change of the cervical spine with mild to moderate narrowing extending from C3 to C7. Multilevel moderate to severe narrowing. IMPRESSION: No acute intracranial hemorrhage or loss of ly-white matter differentiation. Right parietal encephalomalacia, likely from previous insult. No large vessel occlusion. No significant stenosis of the neck vasculature. Focal linear soft tissue along the margin of the left carotid bulb which may represent a small web, focal dissection or artifact. Multilevel degenerative change with [id number] spinal canal and moderate to severe neuroforaminal narrowing. Narrative Procedure Note Jimi Tobar, DO - 05/05/2025 IMPRESSION: Please see below. Exam: CTA HEAD AND NECK W AND/OR WO CONTRAST Date/Time of Exam: 05/05/2025 1:59 PM Reason For Exam: Stroke, hemorrhagic. Diagnosis: See Reason for Exam. Technique: CTA of the head and neck was performed prior to and following the administration of intravenous contrast. Post-processing was performed, including sagittal and coronal reformations and 3-D reconstruction. Contrast: IOPAMIDOL 61 % INTRAVENOUS SOLUTION (MULTI-DOSE BULK PACK) Given:180 mL Findings: Comparison 02/02/2011. Encephalomalacia within the right parietal cortex, likely from previous insult. No acute intracranial hemorrhage or loss of ly-white matter differentiation. No hydrocephalus. Basal cisterns are patent. No acute osseous abnormality. Unchanged left temporal osteoma. The paranasal sinuses and mastoid air cells are clear. The orbits are intact. Intracranial internal carotid arteries are patent. The ACAs are patent. The MCAs are provided. The intradural vertebral arteries are patent. The basilar artery is patent. pipe buffer are patent bilaterally. Three-vessel origin of the aortic arch. The common carotid arteries are patent. The carotid bifurcations are unremarkable. No significant stenosis of the internal carotid arteries. There is linear soft tissue arising from the proximal left ICA. The origins of the vertebral arteries are unremarkable. Vertebral arteries are patent throughout their course in the neck. Lung apices demonstrate no acute abnormality. Soft tissues in the neck demonstrate no acute abnormality. No acute fracture or aggressive osseous lesion. Multilevel degenerative change of the cervical spine with mild to moderate narrowing extending from C3 to C7. Multilevel moderate to severe narrowing. IMPRESSION: No acute intracranial hemorrhage or loss of ly-white matter differentiation. Right parietal encephalomalacia, likely from previous insult. No large vessel occlusion. No significant stenosis of the neck vasculature. Focal linear soft tissue along the margin of the left carotid bulb which may represent a small web, focal dissection or artifact. Multilevel degenerative change with [id number]-[id number] spinal canal and moderate to severe neuroforaminal narrowing. us Jenna Bateman DO CT ORDERABLES Final Result from Last 3 Months Insurance [facility] [place] [id number] Advance Directives For more information, please contact: [phone] * Default Full Code - Needs Discussion (Latest Code Status on File) Date Activated Date Inactivated Comments 05/05/2025 4:49 PM 05/07/2025 8:34 PM
[2025-06-26 18:19] LABS: Troponin(5th) Baseline 13 ng/L (0-15)
[2025-06-26 20:58] LABS: Troponin 5 2HR 14.21 ng/L (0-15); Troponin 5 2HR Delta 1.21 ABS# (0-10)
[2025-06-27] VITALS (51 sets, daily range): BP systolic 119–187; BP diastolic 85–126; PULSE 67–96; RESP 16–31; TEMP 36.4–37.6; O2SAT 93–100
[2025-06-27 00:18] LABS: Troponin 5 6HR 15.84 ng/L (0-15); Troponin 5 6HR Delta 2.84 ng/L (0-12)
[2025-06-27 04:00] LABS: Hematocrit 40.5 % (37-53); Hemoglobin 14.00 g/dL (11.27-16.99); Mean Corpuscular HGB Conc 34.6 g/dL (30-55); Mean Corpuscular Hemoglobin 30.6 pg (27-33); Mean Corpuscular Volume 88.4 fl (82-101); Nucleated Red Blood Cells % 0 %; Platelet Count 222 10^3/cmm (157-399); Red Blood Count 4.58 10^6/uL (3.85-5.65); White Blood Count 9.95 10^3/uL (3.29-11.43)
[2025-06-27] MEDS: LORazepam 1 MG/0.5 ML injection IVP ×4 (04:01→21:13)
[2025-06-27 04:20] LABS: Ammonia 36 umol/L (16-60)
[2025-06-27 04:25] LABS: Alanine Aminotransferase 16 U/L (0-41); Albumin Level 3.7 g/dL (3.5-5.2); Alkaline Phosphatase 99 U/L (40-130); Anion Gap 14.7 (5-19); Aspartate Amino Transferase 37 U/L (0-40); Blood Urea Nitrogen 12 mg/dL (6-20); Calcium 8.9 mg/dL (8.5-10.5); Carbon Dioxide 21 mmol/L (22-29); Chloride 106 mmol/L (98-107); Creatinine Clr Calc Pharmacy 79.9653; Globulin 2.7 g/dL (1.3-4.6); Glucose 109 mg/dL (65-115); Magnesium 1.9 mg/dL (1.7-2.3); Osmolality Calculated 286 mOsm/kg (285-295); Potassium 3.7 mmol/L (3.5-5.1); Sodium 138 mmol/L (136-145); Total Protein 6.4 g/dL (6.6-8.7)
[2025-06-27 04:26] LABS: Lactate (Lactic Acid level) 0.7 mmol/L (0.5-2.2)
[2025-06-27 04:27] LABS: Procalcitonin 0.52 ng/mL (0-0.5)
--- NOTE | 2025-06-27 05:48 | PC.NURSE ---
NIH performed, patient uninterested in participating in assessment, frequently attempted to turn over and sleep. Inaccurate representation of patient's actual abilities when awake and participating in care.
[2025-06-27] MEDS: multivitamin therapeutic Tablet 1 TAB PO (08:06)
[2025-06-27] MEDS: dextrose 5%-sod chloride 0.9% 1,000 ML 100 ML IV (08:07)
[2025-06-27] MEDS: LORazepam 1 MG/0.5 ML injection 2 MG IVP ×2 (11:43→17:29)
[2025-06-27] MEDS: thiamine 100 mg/mL 2mL SDV IV (12:34)
[2025-06-27] MEDS: cefTRIAXone 1,000 mg SDV 1000 MG IVP (12:34)
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
[2025-06-28] VITALS (20 sets, daily range): BP systolic 144–174; BP diastolic 91–120; PULSE 70–93; RESP 18–30; TEMP 36.4; O2SAT 98–99
[2025-06-28] MEDS: LORazepam 1 MG/0.5 ML injection IVP ×2 (03:11→09:06)
[2025-06-28 03:30] LABS: Hematocrit 39.8 % (37-53); Hemoglobin 13.90 g/dL (11.27-16.99); Mean Corpuscular HGB Conc 34.9 g/dL (30-55); Mean Corpuscular Hemoglobin 31.0 pg (27-33); Mean Corpuscular Volume 88.6 fl (82-101); Nucleated Red Blood Cells % 0 %; Platelet Count 208 10^3/cmm (157-399); Red Blood Count 4.49 10^6/uL (3.85-5.65); White Blood Count 8.94 10^3/uL (3.29-11.43)
[2025-06-28 03:53] LABS: Lactate (Lactic Acid level) 0.7 mmol/L (0.5-2.2)
[2025-06-28 03:57] LABS: Procalcitonin 0.33 ng/mL (0-0.5)
[2025-06-28 03:58] LABS: Alanine Aminotransferase 14 U/L (0-41); Albumin Level 4.0 g/dL (3.5-5.2); Alkaline Phosphatase 107 U/L (40-130); Anion Gap 17.1 (5-19); Aspartate Amino Transferase 31 U/L (0-40); Blood Urea Nitrogen 8 mg/dL (6-20); Calcium 9.4 mg/dL (8.5-10.5); Carbon Dioxide 25 mmol/L (22-29); Chloride 99 mmol/L (98-107); Creatinine Clr Calc Pharmacy 81.5972; Globulin 2.3 g/dL (1.3-4.6); Glucose 86 mg/dL (65-115); Magnesium 1.7 mg/dL (1.7-2.3); Osmolality Calculated 282 mOsm/kg (285-295); Potassium 4.1 mmol/L (3.5-5.1); Sodium 137 mmol/L (136-145); Total Protein 6.3 g/dL (6.6-8.7)
[2025-06-28] MEDS: multivitamin therapeutic Tablet 1 TAB PO (08:05)
[2025-06-28] MEDS: thiamine 100 mg/mL 2mL SDV IV (12:44)
[2025-06-28] MEDS: cefTRIAXone 1,000 mg SDV 1000 MG IVP (12:44)
--- NOTE | 2025-06-28 13:07 | PM.DCS ---
Discharge Providers Date of Admission: 06/25/25 18:33 Date of Discharge: June 28, 2025 Attending Provider at Admission: Miri Leon MD Attending Provider at Discharge: Papa Gottlieb MD Primary Care Provider: ALEXI Polk Diagnoses at Discharge Discharge Diagnosis 1. Alcohol withdrawal seizure: 2. 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 Alcoholism: 5. Medical non-compliance: 6. Acute encephalopathy: 7. Sepsis: Reason for Visit Reason for Visit: seizures Hospital Course Hospital Course This is a 45-year-old male with a past medical history of alcoholism, last drink 72 hours ago, history of intracranial bleed after a fall 05/03/2025 intubated transferred to [facility], eventually extubated, he reports no significant surgical intervention, prior history of acute infarct and encephalomalacia of right parietal lobe, who presents [facility] due to alcohol withdrawal seizure and delirium tremens Patient was admitted to [facility] for alcohol withdrawal seizure and delirium tremens, he was monitored as inpatient, received CIWA protocol, phenobarbital, Precedex drip, monitored in the ICU, overall mentation improved, alcohol withdrawal resolved, no recurrent alcohol withdrawal seizures. Patient is ambulatory, alert oriented x 3, following all commands, seen by psychiatry, had a detailed discussion with patient about alcohol cessation counseling. Patient voiced understanding, all questions answered, agreed to proceed, patient declines inpatient alcohol rehab. 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 Previously described acute intracranial hemorrhagic focus in the right parieto-occipital lobe has since resolved. -April 2025 - Transfer to [place] - Patient was extubated, he denies any surgery -we will have him follow-up with neurosurgery at [facility] - Discussed with patient that he should ambulate with care, due to risk of falls, intracranial hemorrhage Patient reported homicidal ideation - 6 to 8 months ago - No active ideation - Seen by psychiatry, no acute interventions, agreeable for discharge - During repeat examination, he adamantly denies any homicidal ideation in the past, no active ideation - Denies any suicidal ideation - Denies feeling down depressed or sad - Discussed with patient that if he has any suicidal homicidal ideation or homicidal ideation call 911 Physical Exam Const: COMMON NORMALS: no acute distress and patient oriented x3 Eye: COMMON NORMALS: Equal, round and reactive pupils present and EOMs intact bilaterally PUPIL: Yes Equal, round and reactive pupils present Resp: COMMON NORMALS: normal respiratory effort, No retractions, No use of accessory muscles and clear to auscultation bilaterally AUSCULTATION: clear to auscultation bilaterally Cardio: COMMON NORMALS: regular rate, regular rhythm, S1 normal heart sound present and S2 normal heart sound present RATE: regular rate RHYTHM: regular rhythm HEART SOUNDS: S1 normal heart sound present and S2 normal heart sound present GI: COMMON NORMALS: Normal to inspection, nondistended, normoactive bowel sounds present and non-tender Extremity: COMMON NORMALS: no pedal edema Neuro: COMMON NORMALS: patient oriented x3, CN's II-XII intact bilaterally, moves all extremities and no focal motor deficits Psych: COMMON NORMALS: mental status grossly normal Urinary Catheter Management: Michael Latex: Cath Placed During This Visit: yes, but has since been removed by the nurse Reason for Continuing Indwelling Catheter: Decision to DC Catheter Urinary Catheter Date of Insertion: 06/26/25 Urinary Catheter Time of Insertion: 00:10 Date Urinary Catheter Removed: 06/26/25 Time Urinary Catheter Discontinued: 01:00 Discharge Data Studies Completed and Pending Completed Studies During Hospitalization Category Date Time Status CT chest abdomen pelvis [[place] [id number] Cat Scan 06/26/25 15:33 Completed ] Routine CT head wo con* [id number] Stat Cat Scan 06/25/25 15:58 Completed XR chest 1V [id number] Stat Exams 06/25/25 15:58 Completed Pending at discharge Category Date Time Status Blood Culture Stat Lab 06/26/25 15:05 Results C Reactive Protein AM LABS Lab 06/29/25 04:00 Ordered Complete Blood Count w/Auto AM LABS Lab 06/29/25 04:00 Ordered Comprehensive Metabolic Panel AM LABS Lab 06/29/25 04:00 Ordered Creatine Phosphokinase AM LABS Lab 06/29/25 04:00 Ordered Lactate (Lactic Acid level) AM LABS Lab 06/29/25 04:00 Ordered Magnesium AM LABS Lab 06/29/25 04:00 Ordered Phosphorus AM LABS Lab 06/29/25 04:00 Ordered Procalcitonin AM LABS Lab 06/29/25 04:00 Ordered Radiology Impressions Chest X-Ray 06/25/25 15:58 IMPRESSION: No acute findings. Head CT 06/25/25 15:58 IMPRESSION: No acute intracranial abnormality. 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 Previously described acute intracranial hemorrhagic focus in the right parieto-occipital lobe has since resolved. Chest/Abdomen/Pelvis CT 06/26/25 15:33 IMPRESSION: No acute finding in the chest. IMPRESSION: No acute abnormality in the abdomen or pelvis. Laboratory Results WBC 8.94 10^3/uL (3.29-11.43) 06/28/25 03:11 RBC 4.49 10^6/uL (3.85-5.65) 06/28/25 03:11 Hgb 13.90 g/dL (11.27-16.99) 06/28/25 03:11 Hct 39.8 % (37-53) 06/28/25 03:11 MCV 88.6 fl (82-101) 06/28/25 03:11 MCH 31.0 pg (27-33) 06/28/25 03:11 MCHC 34.9 g/dL (30-55) 06/28/25 03:11 RDW 13.9 % (12.1-15.1) 06/28/25 03:11 Plt Count 208 10^3/cmm (157-399) 06/28/25 03:11 MPV 8.6 fL (7.4-10.4) 06/28/25 03:11 Neut % (Auto) 73.8 % 06/28/25 03:11 Lymph % (Auto) 17.7 % 06/28/25 03:11 Duc[place]ne % (Auto) 6.3 % 06/28/25 03:11 Eos % (Auto) 1.2 % 06/28/25 03:11 Baso % (Auto) 0.7 % 06/28/25 03:11 Neut # (Auto) 6.60 10^3/uL (1.8-7.7) 06/28/25 03:11 Lymph # (Auto) 1.6 10^3/uL (0.8-4.8) 06/28/25 03:11 Duc[place]ne # (Auto) 0.6 10^3/uL (0.2-0.9) 06/28/25 03:11 Eos # (Auto) 0.1 10^3/uL (0.0-0.8) 06/28/25 03:11 Baso # (Auto) 0.1 10^3/uL (0.0-0.1) 06/28/25 03:11 Nucleated RBC % (auto) 0 % 06/28/25 03:11 Nucleated RBCs # 0.0 /100WBC 06/28/25 03:11 Sodium 137 mmol/L (136-145) 06/28/25 03:11 Potassium 4.1 mmol/L (3.5-5.1) 06/28/25 03:11 Chloride 99 mmol/L (98-107) 06/28/25 03:11 Carbon Dioxide 25 mmol/L (22-29) 06/28/25 03:11 Anion Gap 17.1 (5-19) 06/28/25 03:11 BUN 8 mg/dL (6-20) 06/28/25 03:11 Creatinine 0.8 mg/dL (0.7-1.2) 06/28/25 03:11 GFR Calculation 104.1 mL/min (90-130) 06/28/25 03:11 Glucose 86 mg/dL (65-115) 06/28/25 03:11 Calculated Osmolality 282 mOsm/kg (285-295) L 06/28/25 03:11 Lactic Acid 4.7 mmol/L (0.5-2.2) H* 06/25/25 16:31 Lactic Acid (Sepsis) 2.3 mmol/L (0.5-2.2) H 06/25/25 19:24 Lactate 0.7 mmol/L (0.5-2.2) 06/28/25 03:11 Calcium 9.4 mg/dL (8.5-10.5) 06/28/25 03:11 Phosphorus 3.4 mg/dL (2.5-4.5) 06/28/25 03:11 Magnesium 1.7 mg/dL (1.7-2.3) 06/28/25 03:11 Total Bilirubin 0.7 mg/dL (0.15-1.2) 06/28/25 03:11 AST 31 U/L (0-40) 06/28/25 03:11 ALT 14 U/L (0-41) 06/28/25 03:11 Alkaline Phosphatase 107 U/L (40-130) 06/28/25 03:11 Ammonia 36 umol/L (16-60) 06/27/25 03:52 Creatine Kinase 785 U/L (39-308) H* 06/28/25 03:11 Troponin T Baseline 13 ng/L (0-15) 06/26/25 17:54 Troponin T 120 Minute 14.21 ng/L (0-15) 06/26/25 20:08 Delta Troponin T 1.21 ABS# (0-10) 06/26/25 20:08 Troponin T Hi Sens 6Hr 15.84 ng/L (0-15) H 06/26/25 23:45 Troponin T Hi Sens 6Hr Delta 2.84 ng/L (0-12) 06/26/25 23:45 C-Reactive Protein 25.4 mg/L (0.0-4.9) H 06/28/25 03:11 Total Protein 6.3 g/dL (6.6-8.7) L 06/28/25 03:11 Albumin 4.0 g/dL (3.5-5.2) 06/28/25 03:11 Globulin 2.3 g/dL (1.3-4.6) 06/28/25 03:11 Lipase 14 U/L (13-60) 06/25/25 22:30 Procalcitonin 0.33 ng/mL (0-0.5) 06/28/25 03:11 Urine Color Yellow (Yellow) 06/25/25 18:32 Urine Appearance Clear (CLEAR) 06/25/25 18:32 Urine pH 6.0 (5-7) 06/25/25 18:32 Ur Specific [place] 1.009 (1.005-1.030) 06/25/25 18:32 Urine Protein 1+ (Negative) A 06/25/25 18:32 Urine Glucose (UA) Negative (Normal) 06/25/25 18:32 Urine Ketones Trace (Negative) 06/25/25 18:32 Urine Blood 2+ (Negative) A 06/25/25 18:32 Urine Nitrate Negative (Negative) 06/25/25 18:32 Urine Bilirubin Negative (Negative) 06/25/25 18:32 Urine Urobilinogen 0.2 mg/dL (Negative) 06/25/25 18:32 Ur Leukocyte Esterase Negative (Negative) 06/25/25 18:32 Urine RBC 11-20 /hpf (0-2) H 06/25/25 18:32 Urine WBC 0-5 /hpf (0-5) 06/25/25 18:32 Ur Squamous Epith Cells 0-5 /hpf (0-5) 06/25/25 18:32 Amorphous Sediment Not Reportable 06/25/25 18:32 Urine Bacteria None seen /hpf (NONE) 06/25/25 18:32 Hyaline Casts 4.11 /lpf 06/25/25 18:32 Urine Yeast Trace /hpf 06/25/25 18:32 Salicylates < 0.3 mg/dL (3-10) L 06/25/25 16:31 Urine Opiates Screen Negative ng/mL (Negative) 06/25/25 18:32 Acetaminophen < 5.0 ug/mL (10-30) L 06/25/25 16:31 Ur Barbiturates Screen Negative ng/mL (Negative) 06/25/25 18:32 Ur Phencyclidine Scrn Negative ng/mL (Negative) 06/25/25 18:32 Ur Amphetamines Screen Negative ng/mL (Negative) 06/25/25 18:32 U Benzodiazepines Scrn Positive ng/mL (Negative) H 06/25/25 18:32 Urine Cocaine Screen Negative ng/mL (Negative) 06/25/25 18:32 U Marijuana (THC) Screen Positive ng/mL (Negative) H 06/25/25 18:32 Ethyl Alcohol < 10 mg/dL (0-10) 06/25/25 16:31 Vitals Last Vital Signs Temp 97.6 F 06/28/25 07:25 Pulse 93 06/28/25 12:31 Resp 30 H 06/28/25 12:31 BP 148/95 06/28/25 12:31 Pulse Ox 98 06/28/25 12:31 O2 Del Method Room Air 06/28/25 12:31 FiO2 21 06/25/25 23:00 Discharge Plan Discharge Patient Disposition: Home Condition: Stable Prescriptions: New amlodipine 10 mg Tablet 10 mg PO DAILY 30 Days Qty: 30 0RF multivitamin with folic acid [Thera] 400 mcg Tablet 1 tab PO DAILY 30 Days Qty: 30 0RF thiamine HCl (vitamin B1) 100 mg tablet 100 mg PO DAILY 30 Days Qty: 30 0RF Continued lamotrigine 200 mg tablet 200 mg PO BID Qty: 180 3RF Rx Instructions: along with 100mg one half tablet dg=[id number] total lamotrigine [Lamictal] 100 mg tablet 50 mg PO BID Qty: 90 3RF Rx Instructions: along with 200mg [id number] total Discharge Order = DC NOW: Discharge Order (Routine); Ordered 06/28/25 Ordered By: Papa Gottlieb Referrals: Kortney Porter MD [Physician, Neurology] - 7-10 days Mills,ALEXI Zelaya [Primary Care Provider, Nurse Practitioner] Referral Note: Tuesday, July 03, 2025 at 1 p.m. Discharge Diet: Cardiac Discharge Activity: Resume usual activity Patient Instructions: Thiamine (By mouth) ([facility] Vitamin B1, Nature's..., Multivitamins, Adult Formula (By mouth) (Daily Multiple Vitamins,..., Amlodipine (By mouth) (Hypertenipine-2.5, Norvasc, Norliqva), Opioid Safety, Patient Portal & Sanya Instructions Activity Restrictions/Additional Instructions: Resume usual activity. 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
--- NOTE | 2025-06-28 14:18 | PC.NURSE ---
Patient was given all discharge information. All prescriptions were sent to patient's preferred pharmacy. Patient's appointments were made and patient was informed. Patient's IV was taken out and patient was stable during discharge.
== END 2025-06-28 14:00 | disposition home or self-care (01) | DRG 871 ==
LOC: ER 19:56 → CSU 20:14 → ICU 21:06
PROVIDERS: Internal Medicine; Admitting Provider Internal Medicine; Emergency Provider Emergency Medicine; PCP Nurse Practitioner Family; Visit Provider Family Medicine
DX: A41.9 Sepsis, unspecified organism (principal); J69.0 Pneumonitis due to inhalation of food and vomit; F10.231 Alcohol dependence with withdrawal delirium; G40.109 Localization-related (focal) (partial) symptomatic epilepsy and epileptic syndromes with simple partial seizures, not intractable, without status epilepticus; G93.40 Encephalopathy, unspecified; E87.1 Hypo-osmolality and hyponatremia; E87.20 Acidosis, unspecified; Z91.199 Patient's noncompliance with other medical treatment and regimen due to unspecified reason; N18.9 Chronic kidney disease, unspecified; F17.200 Nicotine dependence, unspecified, uncomplicated; E86.0 Dehydration; Z87.820 Personal history of traumatic brain injury
CPT/HCPCS: 36415; 51702; 70450; 71045; 71250; 74176; 80048; 80053; 80306; 80307; 81001; 82140; 82550; 83605; 83690; 83735; 84100; 84145; 84484; 85025; 86140; 87040; 87086; 93005; 94664; 96365; 96367; 96372; 96374; 96375; 96376; 97161; 97165; 99285; J0696; J1630; J1650; J1953; J2060; J2250; J2560; J3411; J7030; J7042; J7120; J9999

== ENCOUNTER → 2025-07-03 15:57 | Outpatient (BNVA) | payer MEDICAID, SELFPAY | PROVIDERS: PCP Nurse Practitioner Family; Referring Provider Nurse Practitioner Family; Visit Provider Specialist | DX: Z79.899 Other long term (current) drug therapy (principal) | CPT/HCPCS: 80175 ==